=== PATIENT | female | born 1940 | race Caucasian/White ===

== ENCOUNTER → 2019-05-31 10:41 | Outpatient (BNVA) | payer MEDICARE, MEDICAID, SELFPAY | PROVIDERS: Family Provider Family Medicine; PCP Family Medicine; Visit Provider Urology | DX: N35.82 Other urethral stricture, female (principal); N39.9 Disorder of urinary system, unspecified | CPT/HCPCS: 81001 ==

== ENCOUNTER → 2019-12-05 10:45 | Outpatient (BNVA) | payer MEDICARE, MEDICAID, SELFPAY | PROVIDERS: Family Provider Family Medicine; PCP Family Medicine; Visit Provider Urology | DX: Z87.440 Personal history of urinary (tract) infections (principal) | CPT/HCPCS: 81001 ==

== ENCOUNTER 2020-06-07 12:56 | Emergency (ER) | payer MEDICARE, MEDICAID, SELFPAY ==
[2020-06-07 12:58] VITALS: BP 99/54; PULSE 80; RESP 18; TEMP 36.6; O2SAT 98; BMI 28.7
--- NOTE | 2020-06-07 13:27 | XRR_ITS ---
PROCEDURE INFORMATION: Exam: XR Right Tibia and Fibula Exam date and time: 06/07/2020 1:28 PM Age: 79 years old Clinical indication: Injury or trauma; Fall; Blunt trauma; Lower leg; Right; Prior surgery; Surgery type: Knee; Additional info: Fall, swelling, pain TECHNIQUE: Imaging protocol: XR Right tibia and fibula. Views: 2 views. COMPARISON: No relevant prior studies available. FINDINGS: Bones/joints: A total knee prosthesis is present. The tibia and fibula appear intact with no fracture or other significant bony abnormality. Soft tissues: Normal. XR/XR tibia fibula RT 2V [id number] IMPRESSION: No acute abnormality.
--- NOTE | 2020-06-07 13:27 | ED_ITS ---
HPI - Fall General: Chief Complaint: Fall Stated Complaint: FALL, R KNEE INJURY/PAIN Time Seen by Provider: 06/07/20 13:23 History of Present Illness: HPI Narrative: Patient arrived via POV with a complaint of right knee pain related to fall last night. Patient says she tripped on carpet and had resulting pain below her knee. She has history of bilateral knee replacement. Patient has been able to ambulate but said the leg is states well it hurts. Also has a skin tear on her right ankle that has been bandaged. Denies any other injuries. complaint: fall Onset (ago): day(s) Fall from: standing Fall witnessed: yes, by family Place fall occurred: home Loss of consciousness: None Symptoms prior to fall: none Context: tripped/slipped Location of injury - extremities: Right: lower leg and ankle Severity: mild Severity scale (1-10): 2 Quality: aching (Below right knee) Associated symptoms-after fall: Reports no associated symptoms; Denies abdominal pain, chest pain or headache(s) Review of Systems Const: Denies: fever(s), chills or body aches Eyes: Denies: change in vision or blurry vision ENMT: Denies: throat pain or nasal congestion Card: Denies: chest pain or dyspnea on exertion Resp: Denies: dyspnea, productive cough or non-productive cough GI: Denies: abdominal pain, nausea or vomiting Musc: Reports: extremity pain (Right leg proximal aspect lateral says she fell and struck her right leg cooney) and extremity swelling Skin/Breast: Reports: other (Skin tear right ankle); Denies: rash Neuro: Denies: headache(s) Psych: Denies: anxiety or depression Zbigniew/Lymph: Denies: easy bruising [facility] ED PFSH: Medical History (Updated 06/07/20 @ 13:59 by NICK Garcia) History of urethral stricture History of UTI Family History Father Cancer Social History Smoking and tobacco status: current every day smoker Alcohol intake: never Adopted: No Caregiver/support person: No Lives independently: No Household members: spouse Marital status: Current occupational status: retired History of recent travel: No Current gender identity: Female Physical Exam Const: COMMON NORMALS: no acute distress, average body habitus and patient oriented x3 HENMT: COMMON NORMALS: normocephalic HEAD & SCALP: normal to inspection and normocephalic FACE & SINUS: normal facial exam Eye: COMMON NORMALS: conjunctivae normal GENERAL EYE: appearance normal, both eyes and all related structures CONJUNCTIVA: Yes conjunctivae normal Neck/C-Spine: COMMON NORMALS: no JVD Chest: COMMONS NORMALS: normal inspection of the chest Resp: COMMON NORMALS: normal respiratory effort and clear to auscultation bilaterally AUSCULTATION: clear to auscultation bilaterally Cardio: COMMON NORMALS: no JVD, regular rate and regular rhythm RATE: regular rate RHYTHM: regular rhythm GI: COMMON NORMALS: Normal to inspection, nondistended, normoactive bowel sounds present Extremity: COMMON NORMALS: normal to inspection and full ROM RIGHT LOWER EXTREMITY: Yes lower leg (Has swelling to the lateral aspect of the right leg approximately 1 to 2 in) Right lower leg: Yes palpation (Small abrasion noted and mild swelling tender) Neuro: COMMON NORMALS: patient oriented x3 Skin: OTHER: Has small skin tear right lateral ankle approximately 1 cm x 1 cm Course Vital Signs: Vital signs: Vital Signs Temperature 97.8 F 06/07/20 12:58 Pulse Rate 80 06/07/20 12:58 Respiratory Rate 18 06/07/20 13:35 Blood Pressure 99/54 06/07/20 12:58 Pulse Oximetry 98 06/07/20 12:58 MDM - Fall MDM Narrative: Medical decision making narrative: Patient resides in detention. Looks like it caught his big toenail when he is putting his pants on and pulled that nail back he has some redness around the toe does not appear to be paraonchya. Toe has full range of motion does not appear to be broke mild erythema Epson salts will probably help him best along with antibiotic's follow- up primary care provider Discharge Plan Discharge Patient Disposition: Home Clinical Impression: Contusion Qualifiers: Encounter type: initial encounter Contusion area: lower leg Laterality: right Qualified Code(s): S80.11XA - Contusion of right lower leg, initial encounter Condition: Stable Prescriptions: No Action pregabalin [Lyrica] 50 mg capsule 50 mg PO BID RF: 0 Incruse Ellipta 62.5 mcg/actuation blister with device 1 inh INHALATION DAILY RF: 0 polyethylene glycol 3350 [GlycoLax] 17 gram/dose powder 17 gm PO DAILY RF: 0 morphine-naltrexone 30-1.2 mg capsule,extend.release pellets PO DAILY RF: 0 albuterol sulfate 90 mcg/actuation HFA aerosol inhaler 1 inh INHALATION QID RF: 0 omeprazole 20 mg capsule,delayed release(DR/EC) 20 mg PO BID RF: 0 nystatin 100,000 unit/gram cream 1 applic TOPICAL .prn RF: 0 duloxetine 20 mg capsule,delayed release(DR/EC) 20 mg PO DAILY RF: 0 donepezil [Aricept] 10 mg tablet 10 mg PO DAILY RF: 0 docusate sodium [Colace] 100 mg capsule 100 mg PO BID RF: 0 vitamin B complex [B Complex-Vitamin B12] Tablet 1 tab PO DAILY RF: 0 Spiriva with HandiHaler 18 mcg capsule, w/inhalation device 1 cap INHALATION DAILY RF: 0 Calcium 600 with Vitamin D3 600 mg(1,500mg) -400 unit tablet,chewable PO DAILY RF: 0 mirtazapine 15 mg tablet 15 mg PO DAILY RF: 0 morphine 15 mg tablet 15 mg PO Q6H PRNRF: 0 Discharge Orders: Discharge ED (Routine); Ordered 06/07/20 Ordered By: Grover Patel Referrals: Naomi Lyn MD [Primary Care Provider] - Discharge Diet: Usual diet Discharge Activity: Increase activity as tolerated Patient Instructions: Contusion in Adults (ED) Activity Restrictions/Additional Instructions: Can apply ice to area. Wear Moe wrap around area. Family medical provider if no significant improvement. Coding Level of Care Code ED [facility] Programmer for Chg Fwd Exam Comprehensive
[2020-06-07 13:35] VITALS: RESP 18
--- NOTE | 2020-06-07 15:25 | W.ED.FALL ---
HPI - Fall General: Chief Complaint: Fall Stated Complaint: FALL, R KNEE INJURY/PAIN Time Seen by Provider: 06/07/20 13:23 History of Present Illness: Place fall occurred: home Context: tripped/slipped [facility] ED PFSH: Medical History (Updated 06/07/20 @ 13:59 by NICK Garcia) History of urethral stricture History of UTI Family History Father Cancer Social History Smoking and tobacco status: current every day smoker Alcohol intake: never Adopted: No Caregiver/support person: No Lives independently: No Household members: spouse Marital status: Current occupational status: retired History of recent travel: No Current gender identity: Female Course Vital Signs: Vital signs: Vital Signs Temperature 97.8 F 06/07/20 12:58 Pulse Rate 80 06/07/20 12:58 Respiratory Rate 18 06/07/20 13:35 Blood Pressure 99/54 06/07/20 12:58 Pulse Oximetry 98 06/07/20 12:58 Discharge Plan Discharge Patient Disposition: Home Clinical Impression: Contusion Qualifiers: Encounter type: initial encounter Contusion area: lower leg Laterality: right Qualified Code(s): S80.11XA - Contusion of right lower leg, initial encounter Condition: Stable Prescriptions: No Action pregabalin [Lyrica] 50 mg capsule 50 mg PO BID RF: 0 Incruse Ellipta 62.5 mcg/actuation blister with device 1 inh INHALATION DAILY RF: 0 polyethylene glycol 3350 [GlycoLax] 17 gram/dose powder 17 gm PO DAILY RF: 0 morphine-naltrexone 30-1.2 mg capsule,extend.release pellets PO DAILY RF: 0 albuterol sulfate 90 mcg/actuation HFA aerosol inhaler 1 inh INHALATION QID RF: 0 omeprazole 20 mg capsule,delayed release(DR/EC) 20 mg PO BID RF: 0 nystatin 100,000 unit/gram cream 1 applic TOPICAL .prn RF: 0 duloxetine 20 mg capsule,delayed release(DR/EC) 20 mg PO DAILY RF: 0 donepezil [Aricept] 10 mg tablet 10 mg PO DAILY RF: 0 docusate sodium [Colace] 100 mg capsule 100 mg PO BID RF: 0 vitamin B complex [B Complex-Vitamin B12] Tablet 1 tab PO DAILY RF: 0 Spiriva with HandiHaler 18 mcg capsule, w/inhalation device 1 cap INHALATION DAILY RF: 0 Calcium 600 with Vitamin D3 600 mg(1,500mg) -400 unit tablet,chewable PO DAILY RF: 0 mirtazapine 15 mg tablet 15 mg PO DAILY RF: 0 morphine 15 mg tablet 15 mg PO Q6H PRNRF: 0 Discharge Orders: Discharge ED (Routine); Ordered 06/07/20 Ordered By: Grover Patel Referrals: Naomi Lyn MD [Primary Care Provider] - Discharge Diet: Usual diet Discharge Activity: Increase activity as tolerated Patient Instructions: Contusion in Adults (ED) Activity Restrictions/Additional Instructions: Can apply ice to area. Wear Moe wrap around area. Family medical provider if no significant improvement. Coding Level of Care Code ED [employer]er Supervisor for Nelia Diaz
== END 2020-06-07 14:13 | disposition home or self-care (01) ==
PROVIDERS: Emergency Provider Nurse Practitioner Family; PCP Family Medicine
DX: S80.11XA Contusion of right lower leg, initial encounter (principal); F17.210 Nicotine dependence, cigarettes, uncomplicated; W18.09XA Striking against other object with subsequent fall, initial encounter; Z96.653 Presence of artificial knee joint, bilateral
CPT/HCPCS: 73590; 99282

== ENCOUNTER → 2020-06-10 09:58 | Outpatient (BNVA) | payer MEDICARE, MEDICAID, SELFPAY | PROVIDERS: PCP Family Medicine; Visit Provider Urology | DX: N35.92 Unspecified urethral stricture, female (principal); R35.0 Frequency of micturition; N39.46 Mixed incontinence | CPT/HCPCS: 81003 ==

== ENCOUNTER → 2020-09-11 12:20 | Outpatient (BNVA) | payer MEDICARE, MEDICAID, SELFPAY | PROVIDERS: PCP Family Medicine; Visit Provider Urology | DX: R82.90 Unspecified abnormal findings in urine (principal) | CPT/HCPCS: 81003; 87086 ==

== ENCOUNTER 2020-09-23 10:46 | Inpatient (IN) | payer MEDICARE, MEDICAID, SELFPAY ==
[2020-09-23] VITALS (14 sets, daily range): BP systolic 132–153; BP diastolic 69–90; PULSE 69–100; RESP 14–24; TEMP 36.6–37.7; O2SAT 88–99; BMI 30.2
--- NOTE | 2020-09-23 10:53 | XRR_ITS ---
PROCEDURE INFORMATION: Exam: XR Chest Exam date and time: 09/23/2020 10:53 AM Age: 79 years old Clinical indication: Other: AMS TECHNIQUE: Imaging protocol: XR of the chest. Views: 1 view. COMPARISON: 1. CR Chest 2 views* [id number] 01/24/2017 10:[address] abdomen pelvis wo con [id number] 11/07/2017 9:40:12 AM FINDINGS: Lungs: There is mild atelectasis in the right base. Left lung is grossly clear.. Pleural spaces: Unremarkable. No pleural effusion. No pneumothorax. Heart/Mediastinum: The heart is not enlarged. There is tortuosity of the thoracic aorta. Benign calcified lymph nodes are present in the mediastinum. Diaphragm: The right hemidiaphragm is elevated but unchanged since a CT scan from 11/07/2017. Bones/joints: There is thoracolumbar scoliosis. 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 XR/XR chest 1V portable [id number] IMPRESSION: 1. Benign calcified granulomas disease. 2. Subsegmental right basilar atelectasis. 3. Stable chronic right hemidiaphragm elevation.
--- NOTE | 2020-09-23 11:14 | CT_ITS ---
WS: [id number] CT HEAD TECHNIQUE: Noncontrast CT of the head obtained from the skullbase to the vertex. CLINICAL INFORMATION: AMS COMPARISON: CT 2013 DLP: 1832.[address] scans at [facility] use at least one of these dose optimization techniques: automat ed exposure control; mA and/or kV adjustment per patient size (includes targeted exams where dose is matched to clinical indication); or iterative reconstruction. FINDINGS: No evidence of intracranial hemorrhage or mass effect. Ventricular system and basal cisterns are powell nt. Moderate small vessel changes with mild parenchymal volume loss. 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 No extra-axial fluid collections. No evidence of mass or mass effect. Norm al bowen-white differentiation. Paranasal sinuses and mastoid air cells are well aerated. .Normal visualized soft tissues. CT/CT head wo con* [id number] IMPRESSION: 1. No evidence of intracranial hemorrhage or mass effect. 2. Moderate small vessel changes. Mild parenchymal volume loss. 3. No acute intracranial findings.
--- NOTE | 2020-09-23 11:38 | ED_ITS ---
HPI - Female Genitourinary General: Chief complaint: Urogenital-Female Stated complaint: UTI, AMS Time Seen by Provider: 09/23/20 11:00 Source: patient and family (daughter) Mode of arrival: EMS Limitations: altered mental status History of Present Illness: HPI Narrative: Patient is an 79-year-old female with a history of dementia and who is currently on antibiotics, Augmentin for a UTI. Her daughter states that she has had altered mental status from the initial diagnosis of the UTI but it got much worse today. She was started on antibiotics 5 days ago. Today she became combative, not following directions and so her daughter called for an ambulance. In the emergency department she was noted to have a low-grade fever. In the ambulance she pulled out her IV and did not keep her pulse oximeter on throughout the ride. She normally wears 3 L of oxygen via nasal cannula and when ambulating she increases it to 6 L/min. MD elicited complaint: UTI Pertinent past history: recurrent UTIs Onset (ago): day(s) (5) Associated symptoms: Reports abdominal pain and fevers/chills; Deny short of breath, headache(s), nausea, rash, seizures, syncope, vaginal discharge or weakness Review of Systems General: Reports: 10 or more systems reviewed and unremarkable except in HPI and below Card: Denies: syncope GI: Reports: abdominal pain; Denies: nausea : Denies: vaginal discharge Neuro: Denies: headache(s) [facility] ED PFSH: Medical History History of genital organ removal vulvectomy History of urethral stricture History of UTI Mixed stress and urge urinary incontinence Urinary frequency Surgical History History of appendectomy History of back surgery History of cholecystectomy History of fundoplication History of total hip replacement Family History Father Cancer Social History Smoking and tobacco status: current every day smoker Alcohol intake: never Adopted: No Caregiver/support person: No Lives independently: No Household members: spouse Marital status: Current occupational status: retired History of recent travel: No Current gender identity: Female Physical Exam Const: COMMON NORMALS: no acute distress, average body habitus, no hernandez itations, healthy appearing, alert and well nourished HENMT: COMMON NORMALS: normocephalic, atraumatic and moist oral mucous membranes HEAD & SCALP: normocephalic and atraumatic Eye: COMMON NORMALS: Equal, round and reactive pupils present, EOMs intact bilaterally, conjunctivae normal and no scleral icterus CONJUNCTIVA: Yes conjunctivae normal PUPIL: Yes Equal, round and reactive pupils present Neck/C-Spine: COMMON NORMALS: no meningeal signs and no JVD Resp: COMMON NORMALS: normal respiratory effort, No retractions, No use of accessory muscles, clear to auscultation bilaterally and percussion normal AUSCULTATION: clear to auscultation bilaterally PERCUSSION: percussion normal Cardio: COMMON NORMALS: no JVD, regular rate, regular rhythm, S1 normal heart sound present, S2 normal heart sound present, No gallops present (Cardio), No clicks present (Cardio), No murmurs present (Cardio), No rub (Cardio) and Peripheral pulses 2+ throughout RATE: regular rate RHYTHM: regular rhythm HEART SOUNDS: S1 normal heart sound present and S2 normal heart sound present PERIPHERAL PULSES: Peripheral pulses 2+ throughout GI: COMMON NORMALS: Normal to inspection, nondistended, normoactive bowel sounds present, Soft to palpation, No hepatosplenomegaly present, no masses and no bruits PALPATION: Yes Soft to palpation, Yes Tenderness to palpation present (GI) Details: LLQ and Yes No hepatosplenomegaly present : COMMON NORMALS: Yes no CVA tenderness BLADDER/KIDNEY EXAM: Yes no CVA tenderness Back/Pelvis: COMMON NORMALS: no CVA tenderness Extremity: COMMON NORMALS: normal to inspection, full ROM, capillary refill normal, no calf tenderness and no pedal edema Neuro: SENSORIUM/ORIENTATION: Yes alert, Yes Orientation impaired and Yes fluctuating sensorium MENINGEAL SIGNS: Yes no meningeal signs Skin: COMMON NORMALS: no rashes or lesions noted, no wounds, turgor normal, no jaundice, no petechiae and no mottling GENERAL SKIN EXAM: no rashes or lesions noted and turgor normal Course Consultations: Consultation #1: Discussed the patient with Dr. Givens, hospitalist and she kindly accepted the patient to her service. Time: 14:12 Vital Signs: Vital signs: Vital Signs Temperature 99.2 F 09/25/20 17:11 Pulse Rate 103 H 09/25/20 17:11 Respiratory Rate 14 09/25/20 17:11 Blood Pressure 147/79 09/25/20 17:11 Pulse Oximetry 91 09/25/20 17:11 MDM - Female MDM Narrative: Medical decision making narrative: This 79 year old female with dementia, who is currently on antibiotics for a UTI presents to the ED with complaints of AMS by her daughter. She was combative, delirious, and was drowsy. In the ED, she appears to have a UTI, but she was also in hypercapneic respiratory failure which may be responsible for a lot of her symptoms. She was placed on a biPAP and she tolerated it well. She is admitted to the hospital for management. Medical Records: Attestation: I reviewed the patient's medical records. Lab Data: Attestation: I reviewed the patient's lab results. Labs: Lab Results 09/23/20 09/23/20 09/23/20 Range/Units 11:20 11:20 11:20 WBC 5.7 (4.0-10.0) 10^3/ uL RBC 3.96 L (4.1-5.3) 10^6/u L Hgb 11.6 (11.5-15.3) g/dL Hct 41.8 (37.0-47.0) % MCV 105.6 H (81-99) fL MCH 29.3 (28.0-34.0) pg MCHC 27.8 L (30.0-36.0) g/dL RDW 14.6 (12.1-15.1) % Plt Count 191 (130-400) 10^3/c mm MPV 10.8 H (7.4-10.4) fL Neut % (Auto) 78.1 % Lymph % (Auto) 11.2 % [place] % (Auto) 8.8 % Eos % (Auto) 0.5 % Baso % (Auto) 0.9 % Neut # (Auto) 4.44 (1.8-7.7) 10^3/u L Lymph # (Auto) 0.6 L (0.8-4.8) 10^3/u L [place] # (Auto) 0.5 (0.2-0.9) 10^3/u L Eos # (Auto) 0.0 (0.0-0.8) 10^3/u L Baso # (Auto) 0.1 (0.0-0.1) 10^3/u L Nucleated RBC % (a uto) 0 % Nucleated RBCs # 0.0 /100WBC Specimen Type Sample Site ABG pH (7.35-7.45) ABG pCO2 (35-45) mmHg ABG pO2 (80.0-100.0) mmH g ABG HCO3 (22-26) mmol/L ABG Base Excess (-2.0-2.0) mmol/ L Pj Test Hematocrit (37-47) % O2 Delivery Device O2 Liters/Min % Airset Caster ID Sodium Cancelled Potassium Cancelled Chloride Cancelled Carbon Dioxide Cancelled Anion Gap Cancelled BUN Cancelled Creatinine Cancelled GFR Calculation Cancelled Glucose Cancelled Calculated Osmolal ity Cancelled Lactic Acid 0.9 (0.5-2.2) mmol/L Calcium Cancelled Total Bilirubin Cancelled AST Cancelled ALT Cancelled Alkaline Phosphata se Cancelled Total Protein Cancelled Albumin Cancelled Globulin Cancelled Urine Color (Yellow) Urine Appearance (CLEAR) Urine pH (5-7) Ur Specific Gravit y (1.005-1.030) Urine Protein (Negative) Urine Glucose (UA) (Normal) Urine Ketones (Negative) Urine Blood (Negative) Urine Nitrate (Negative) Urine Bilirubin (Negative) Urine Urobilinogen (Negative) mg/dL Ur Leukocyte Manisha ase (Negative) SARS-CoV-2 Ag (Rap id) (Negative) 09/23/20 09/23/20 09/23/20 Range/Units 11:20 11:20 12:27 WBC (4.0-10.0) 10^3/ uL RBC (4.1-5.3) 10^6/u L Hgb (11.5-15.3) g/dL Hct (37.0-47.0) % MCV (81-99) fL MCH (28.0-34.0) pg MCHC (30.0-36.0) g/dL RDW (12.1-15.1) % Plt Count (130-400) 10^3/c mm MPV (7.4-10.4) fL Neut % (Auto) % Lymph % (Auto) % [place] % (Auto) % Eos % (Auto) % Baso % (Auto) % Neut # (Auto) (1.8-7.7) 10^3/u L Lymph # (Auto) (0.8-4.8) 10^3/u L [place] # (Auto) (0.2-0.9) 10^3/u L Eos # (Auto) (0.0-0.8) 10^3/u L Baso # (Auto) (0.0-0.1) 10^3/u L Nucleated RBC % (a uto) % Nucleated RBCs # /100WBC Specimen Type Sample Site ABG pH (7.35-7.45) ABG pCO2 (35-45) mmHg ABG pO2 (80.0-100.0) mmH g ABG HCO3 (22-26) mmol/L ABG Base Excess (-2.0-2.0) mmol/ L Pj Test Hematocrit (37-47) % O2 Delivery Device O2 Liters/Min % Airset Caster ID Sodium 141 Potassium 5.2 H Chloride 97 L Carbon Dioxide 43 H* Anion Gap 6.2 BUN 12 Creatinine 0.6 GFR Calculation Not Reportable Glucose 91 Calculated Osmolal ity 291 Lactic Acid (0.5-2.2) mmol/L Calcium 8.2 L Total Bilirubin 0.3 AST 18 ALT 9 Alkaline Phosphata se 110 H Total Protein 6.4 L Albumin 3.4 L Globulin 3.0 Urine Color Yellow (Yellow) Urine Appearance Clear (CLEAR) Urine pH 6 (5-7) Ur Specific Gravit y 1.015 (1.005-1.030) Urine Protein Neg (Negative) Urine Glucose (UA) Norm (Normal) Urine Ketones 1+ H (Negative) Urine Blood Neg (Negative) Urine Nitrate Negative (Negative) Urine Bilirubin Neg (Negative) Urine Urobilinogen Norm (Negative) mg/dL Ur Leukocyte Manisha ase Negative (Negative) SARS-CoV-2 Ag (Rap id) Negative (Negative) 09/23/20 Range/Units 13:40 WBC (4.0-10.0) 10^3/ uL RBC (4.1-5.3) 10^6/u L Hgb (11.5-15.3) g/dL Hct (37.0-47.0) % MCV (81-99) fL MCH (28.0-34.0) pg MCHC (30.0-36.0) g/dL RDW (12.1-15.1) % Plt Count (130-400) 10^3/c mm MPV (7.4-10.4) fL Neut % (Auto) % Lymph % (Auto) % [place] % (Auto) % Eos % (Auto) % Baso % (Auto) % Neut # (Auto) (1.8-7.7) 10^3/u L Lymph # (Auto) (0.8-4.8) 10^3/u L [place] # (Auto) (0.2-0.9) 10^3/u L Eos # (Auto) (0.0-0.8) 10^3/u L Baso # (Auto) (0.0-0.1) 10^3/u L Nucleated RBC % (a uto) % Nucleated RBCs # /100WBC Specimen Type Arterial Sample Site Radial, left ABG pH 7.27 L (7.35-7.45) ABG pCO2 99.3 H* (35-45) mmHg ABG pO2 141.0 H (80.0-100.0) mmH g ABG HCO3 45.2 H (22-26) mmol/L ABG Base Excess 14.2 H (-2.0-2.0) mmol/ L Pj Test Pos Hematocrit 36.4 L (37-47) % O2 Delivery Device Nc O2 Liters/Min 4.0 % Airset Caster ID jmn Sodium Potassium Chloride Carbon Dioxide Anion Gap BUN Creatinine GFR Calculation Glucose Calculated Osmolal ity Lactic Acid (0.5-2.2) mmol/L Calcium Total Bilirubin AST ALT Alkaline Phosphata se Total Protein Albumin Globulin Urine Color (Yellow) Urine Appearance (CLEAR) Urine pH (5-7) Ur Specific Gravit y (1.005-1.030) Urine Protein (Negative) Urine Glucose (UA) (Normal) Urine Ketones (Negative) Urine Blood (Negative) Urine Nitrate (Negative) Urine Bilirubin (Negative) Urine Urobilinogen (Negative) mg/dL Ur Leukocyte Manisha ase (Negative) SARS-CoV-2 Ag (Rap id) (Negative) ABG Data: ABG Interpretation 1: ABG results: pH 7.27 pCO2 99.3 pO2 141 Attestation: I personally reviewed and interpreted this ABG as follows: Interpretation: hypercapneic respiratory failure with respiratory acidosis Imaging Data: CT Head: Attestation: I personally reviewed and interpreted this imaging study as follows: Radiologist's impression: [address] [address]BS Scan ReportSigned Patient: Jaye Jarquin #: [id number]: 1940cct#:[id number]/Sex: 79 / FADM Date: 09/23/20Loc: ERRoom/Bed:Attending Dr: Ordering Provider/Ordering MD: Raz Clemente MD, [facility] [place] Date of Service: 09/23/20 Procedure(s): CT head wo con* [id number] Accession Number(s): [id number] Report Number: [id number] WS: [id number] CT HEAD TECHNIQUE: Noncontrast CT of the head obtained from the skullbase to the vertex. CLINICAL INFORMATION: AMS COMPARISON: CT 2012 DLP: 1832.[address] scans at [facility] use at least one of these dose optimization techniques: automated exposure control; mA and/or kV adjustment per patient size (includes targeted exams where dose is matched to clinical indication); or iterative reconstruction. FINDINGS: No evidence of intracranial hemorrhage or mass effect. Ventricular system and basal cisterns are patent. Moderate small vessel changes with mild parenchymal volume loss. 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 No ex tra-axial fluid collections. No evidence of mass or mass effect. Normal bowen- white differentiation. Paranasal sinuses and mastoid air cells are well aerated. .Normal visualized soft tissues. CT/CT head wo con* [id number] IMPRESSION: 1. No evidence of intracranial hemorrhage or mass effect. 2. Moderate small vessel changes. Mild parenchymal volume loss. 3. No acute intracranial findings. Dictated By:Jesus Ibarra MDSigned By:Jesus Ibarra MDSigned Date/Time:09/23/20 1337DD/ 1332 CXR: Attestation: I personally reviewed and interpreted this imaging study as follows: Radiologist's impression: [facility] CenterOulaxcmwom[address] [facility], [place] [address]LGlf ReportSigned Patient: Jaye Jarquin #: [id number]: 9Acct#:[id number]/Sex: 79 / FADM Date: 09/23/20Loc: ERRoom/Bed:Attending Dr: Ordering Provider/Ordering MD: Viridiana Tee Date of Service: 09/23/20 Procedure(s): XR chest 1V portable [id number] Accession Number(s): [id number] Report Number: [id number] PROCEDURE INFORMATION: Exam: XR Chest Exam date and time: 09/23/2020 10:53 AM Age: 79 years old Clinical indication: Other: AMS TECHNIQUE: Imaging protocol: XR of the chest. Views: 1 view. COMPARISON: 1. CR Chest 2 views* [id number] 01/24/2017 10:[address] abdomen pelvis wo con [id number] 11/07/2017 9:40:12 AM FINDINGS: Lungs: There is mild atelectasis in the right base. Left lung is grossly clear.. Pleural spaces: Unremarkable. No pleural effusion. No pneumothorax. Heart/Mediastinum: The heart is not enlarged. There is tortuosity of the thoracic aorta. Benign calcified lymph nodes are present in the mediastinum. Diaphragm: The right hemidiaphragm is elevated but unchanged since a CT scan from 11/07/2017. Bones/joints: There is thoracolumbar scoliosis. 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 XR/XR chest 1V portable [id number] IMPRESSION: 1. Benign calcified granulomas disease. 2. Subsegmental right basilar atelectasis. 3. Stable chronic right hemidiaphragm elevation. Dictated By:Devon Mackenzie By:Devon Mackenzie Date/Time:09/23/20 1151DD/ 1149 EKG Data: EKG 1: Attestation: I personally reviewed and interpreted this EKG as follows: EKG Data: 09/23/20 EKG interpretation time: 11:03 Prior EKG tracings: not available for review Interpretation: sinus rhythm HR [address] changes. EKG 2: Attestation: I personally reviewed and interpreted this EKG as follows: EKG Data: 09/23/20 EKG interpretation time: 14:24 Prior EKG tracings: available for review Interpretation: sinus rhythm HR [address] changes. No signficant changes compared to earlier today Critical Care Time Critical Care Time: Critical Care Time: Yes Total Critical Care Time: 50 Attestation: This case had a high probability of a clinically significant, sudden, or life threatening deterioration of this patient's condition which required my full and direct attention, intervention and personal management. 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
[2020-09-23 12:07] LABS: Add Urine Microscopic? NO; Charge for UA Resulting for Rev
[2020-09-23 12:10] LABS: Basophils # 0.1 10^3/uL (0.0-0.1); Basophils % 0.9 %; Eosinophils % 0.5 %; Hematocrit 41.8 % (37.0-47.0); Hemoglobin 11.6 g/dL (11.5-15.3); Lymphocytes # 0.6 10^3/uL (0.8-4.8); Lymphocytes % 11.2 %; Mean Corpuscular HGB Conc 27.8 g/dL (30.0-36.0); Mean Corpuscular Hemoglobin 29.3 pg (28.0-34.0); Mean Corpuscular Volume 105.6 fL (81-99); Mean Platelet Volume 10.8 fL (7.4-10.4); Monocytes # 0.5 10^3/uL (0.2-0.9); Monocytes % 8.8 %; Neutrophils # 4.44 10^3/uL (1.8-7.7); Neutrophils % 78.1 %; Nucleated Red Blood Cells % 0 %; Platelet Count 191 10^3/cmm (130-400); Red Blood Count 3.96 10^6/uL (4.1-5.3); Red Cell Distribution Width 14.6 % (12.1-15.1); White Blood Count 5.7 10^3/uL (4.0-10.0)
[2020-09-23 12:22] LABS: Bilirubin Urine Neg (Negative); Blood Urine Neg (Negative); Glucose Urine UA Norm (Normal); Ketones Urine 1+ (Negative); Leukocyte Esterase Urine Negative (Negative); Nitrate Urine Negative (Negative); Protein Urine Neg (Negative); Specific Gravity, Urine 1.015 (1.005-1.030); Urine Appearance Clear (CLEAR); Urine Color Yellow (Yellow); Urobilinogen Urine Norm (Negative); pH Urine 6 (5-7)
[2020-09-23 12:32] LABS: Lactic Sepsis W/Reflex 0.9 mmol/L (0.5-2.2)
[2020-09-23 12:35] LABS: SARS Covid-2 Antigen Negative (Negative)
[2020-09-23 13:06] LABS: Alanine Aminotransferase 9 U/L (0-33); Albumin Level 3.4 g/dL (3.5-5.2); Alkaline Phosphatase 110 IU/L (35-105); Anion Gap 6.2 (5-19); Aspartate Amino Transferase 18 U/L (0-32); Blood Urea Nitrogen 12 mg/dL (8-23); Calcium 8.2 mg/dL (8.5-10.5); Chloride 97 mmol/L (98-107); Creatinine Clr Calc Pharmacy 52.2371; Glucose 91 mg/dL (65-115); Osmolality Calculated 291 mOsm/kg (285-295); Potassium 5.2 mmol/L (3.5-5.1); Sodium 141 mmol/L (136-145); Total Bilirubin 0.3 mg/dL (0.15-1.2); Total Protein 6.4 g/dL (6.6-8.7)
[2020-09-23 13:11] LABS: Carbon Dioxide 43 mmol/L (22-29)
[2020-09-23 13:53] LABS: ABG PCO2 99.3 mmHg (35-45); ABG PH Result 7.27 (7.35-7.45); Arterial Blood Gas Hematocrit 36.4 % (37-47); Base Excess ABG 14.2 mmol/L (-2.0-2.0); Blood Gas Allen Test Pos; Blood Gas Sample Site Radial, left; Blood Gas Sample Type Arterial; HCO3 ABG 45.2 mmol/L (22-26); Oxygen Device NC
--- NOTE | 2020-09-23 14:14 | ECG_ITS ---
[facility] Test Date: 2020-09-23 Pat Name: Jaye Jarquin Department: Room: Gender: Female Registered Nurse Ambulatory: : 1940 Requested By: Raz Clemente I Order Number: [id number] Mago MD: Terri Adan M.D. Measurements Intervals [place] Rate: 80 P: 60 HI: 192 QRS: -62 QRSD: 85 T: 3 QT: 345 QTc: 399 Interpretive Statements SINUS RHYTHM LEFT ANTERIOR FASCICULAR BLOCK [QRS AXIS <= -45, QR IN I, RS IN II] MODERATE T-WAVE ABNORMALITY, CONSIDER ANTERIOR ISCHEMIA [-0.1+ mV T WAVE IN V3/V4] Compared to ECG 02/13/2016 11:00:16 Left anterior fascicular block now present T-wave abnormality now present Possible ischemia now present Left-axis deviation no longer present Electronically Signed On 09-24-2020 0:51:08 CDT by Terri Adan M.D. [id number]
[2020-09-23] MEDS: LORazepam 2 mg/mL INJ 1 mL 0.5 MG IVP (14:58)
--- NOTE | 2020-09-23 15:26 | PC.NURSE ---
a reported family member called for an update. Caller was notified that pt was in the ER and currently had a reported family member with her. Caller was offered to speak with pt or family member. Caller reports that she does not wish to speak to anyone in the room. Caller received this RNs name and credentials at her request. Repeated apologizes and education on HIPPA regulations were given to caller.
--- NOTE | 2020-09-23 17:00 | P.HP_ITS ---
Providers/Chief Complaint Admitting Physician: Paty Givens MD Primary Care Provider: Naomi Lyn MD Chief Complaint: UTI, AMS History of Present Illness Jaye Jarquin is a 79 year old female who is presenting from home with PMH as below, choelfly COPD with 3.5lpm supplemental 02 at home. She comes with c/o AMS as noted by family as being confused conversation, hallucinations and disorientation. She is being treated as outpatiet with augmentin for presumed UTI. Today she deneis any dysuria. Afebrile at home. Tmax here noted to be 99.8F. Covid rapid Ag negative. CXR without discrete consolidation. Review of Systems General: Reports: ROS unobtainable due to mental status Medications/Allergies Home Medications Medication Instructions Recorded Confirmed Last Taken Type albuterol sulfate 90 mcg/actuation 1 inh INHALATION QID 05/31/19 09/23/20 Unknown History aerosol inhaler calcium carbonate-vitamin D3 600 1 tab PO DAILY tab 05/31/19 09/23/20 09/22/20 History mg(1,500 mg)-400 unit chewable tablet docusate sodium 100 mg capsule 100 mg PO BID 05/31/19 09/23/20 09/22/20 History donepezil 10 mg tablet 10 mg PO DAILY 05/31/19 09/23/20 09/22/20 History duloxetine 20 mg capsule,delayed 20 mg PO DAILY cap 05/31/19 09/23/20 09/22/20 History release mirtazapine 15 mg tablet 15 mg PO BEDTIME 05/31/19 09/23/20 09/22/20 History morphine 15 mg immediate release 15 mg PO Q6H PRN 05/31/19 09/23/20 Unknown History tablet nystatin 100,000 unit/gram topical 1 applic TOPICAL .prn gm 05/31/19 09/23/20 Unknown History cream omeprazole 20 mg capsule,delayed 20 mg PO DAILY 05/31/19 09/23/20 09/23/20 History release polyethylene glycol 3350 17 17 gm PO DAILY PRN 05/31/19 09/23/20 Unknown History gram/dose oral powder pregabalin 50 mg capsule 50 mg PO BID 05/31/19 09/23/20 09/23/20 History tiotropium bromide 18 mcg capsule 1 cap INHALATION DAILY 05/31/19 09/23/20 09/23/20 History with inhalation device umeclidinium 62.5 mcg/actuation 1 inh INHALATION DAILY 05/31/19 09/23/20 09/22/20 History blister powder for inhalation vitamin B complex 1 tab PO DAILY 05/31/19 09/23/20 09/22/20 History amoxicillin 875 mg-potassium 1 tab PO BID #20 tab 09/15/20 09/23/20 09/22/20 Rx clavulanate 125 mg tablet morphine 30 mg PO Q12H 09/23/20 09/23/20 09/23/20 History Allergies Allergy/AdvReac Type Severity Reaction Status Date / Time adhesive tape Allergy PULLS SKIN Verified 09/23/20 10:54 OFF codeine Allergy ADR-Itching Verified 09/23/20 10:54 fentanyl Allergy ALGY-Difficulty Verified 09/23/20 10:54 Breathing hydrochlorothiazide Allergy ALGY-Difficulty Verified 09/23/20 10:54 Swallowing,THROAT SWELLING hydrocodone Allergy ADR-Nausea Verified 09/23/20 10:54 hydrogen peroxide Allergy ALGY-Rash Verified 09/23/20 10:54 Iodinated Contrast Media Allergy INDUCED Verified 09/23/20 10:54 CARDIAC ARREST latex Allergy ALGY-Rash Verified 09/23/20 10:54 aspirin AdvReac ADR-Nausea Verified 09/23/20 10:54 oxycodone [From OxyContin] AdvReac ADR-Halluci Verified 09/23/20 10:54 nating triazolam [From Halcion] AdvReac ADR-Insomni Verified 09/17/20 10:37 a PFSH Acute PFSH: Medical History History of genital organ removal vulvectomy History of urethral stricture History of UTI Mixed stress and urge urinary incontinence Urinary frequency Surgical History History of appendectomy History of back surgery History of cholecystectomy History of fundoplication History of total hip replacement Family History Father Cancer Social History Smoking and tobacco status: current every day smoker Alcohol intake: never Adopted: No Caregiver/support person: No Lives independently: No Household members: spouse Marital status: Current occupational status: retired History of recent travel: No Current gender identity: Female Vitals/I&O/Wt Last Vital Signs Temp 98.2 F 09/23/20 16:10 Pulse 79 09/23/20 16:10 Resp 14 09/23/20 16:10 BP 148/80 09/23/20 16:10 Pulse Ox 88 L 09/23/20 16:10 Weight last 48 hrs Weight 74.843 kg Physical Exam Narrative: EXAM NARRATIVE: GEN: Awake, alert , disoriented, no acute distress CVS: S1S2 N RS: CTA B/L all areas Abd: Soft, nt/nd , bs+ HIDE MILL MAN: no focal neuro deficits Data : 09/23/20 11:20 09/23/20 12:27 Micro: Microbiology 09/23/20 11:26 Blood Culture - Preliminary Blood SPECIMEN COLLECTED 09/23/20 11:26 Blood Culture - Preliminary Blood SPECIMEN COLLECTED A&P Assessment and plan (1) COPD exacerbation: admit to med surg acute on chronic hypercapneic respiratory failure secondary to copd exacerbation methylprednisone 30mg iv q8h duonebs every 4 hrs scheduled budesonide inh q12h Status: Acute (2) UTI (urinary tract infection): ceftriaxone empirically Status: Acute (3) Hypercapnic respiratory failure: secondary to copd ex Status: Acute (4) Altered mental status: secondary to hypercapnea Status: Acute Attestations Medical Necessity Statement*: >2midnight admission anticipated for COPD ex acerbation, iv abx for UTI, AMS Coding Level of Care Code Acute 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
[2020-09-23] MEDS: haloperidol inj 5 mg/mL INJ 1 mL IVP (17:09)
[2020-09-23] MEDS: haloperidol inj 5 mg/mL INJ 1 mL 2 MG IVP (18:34)
[2020-09-23] MEDS: cefTRIAXone 1,000 MG in sodium chloride 0.9% (plus) 50 ML 100 MG IV (18:59)
[2020-09-23] MEDS: ipratropium-albuterol 3 mL Neb INHALATION (20:36)
[2020-09-23] MEDS: budesonide 0.5 mg/2 mL Neb 0.25 MG INHALATION (20:36)
[2020-09-24] VITALS (20 sets, daily range): BP systolic 124–156; BP diastolic 68–84; PULSE 70–94; RESP 14–26; TEMP 36.8–37.4; O2SAT 90–98
[2020-09-24] MEDS: ipratropium-albuterol 3 mL Neb INHALATION ×4 (03:19→20:47)
[2020-09-24 06:30] LABS: Basophils % 0.4 %; Hematocrit 39.7 % (37.0-47.0); Hemoglobin 11.3 g/dL (11.5-15.3); Lymphocytes # 0.4 10^3/uL (0.8-4.8); Lymphocytes % 8.9 %; Mean Corpuscular HGB Conc 28.5 g/dL (30.0-36.0); Mean Corpuscular Hemoglobin 29.1 pg (28.0-34.0); Mean Corpuscular Volume 102.3 fL (81-99); Mean Platelet Volume 10.7 fL (7.4-10.4); Monocytes # 0.1 10^3/uL (0.2-0.9); Monocytes % 1.1 %; Neutrophils # 4.12 10^3/uL (1.8-7.7); Neutrophils % 89.2 %; Nucleated Red Blood Cells % 0 %; Platelet Count 188 10^3/cmm (130-400); Red Blood Count 3.88 10^6/uL (4.1-5.3); Red Cell Distribution Width 14.5 % (12.1-15.1); White Blood Count 4.6 10^3/uL (4.0-10.0)
[2020-09-24 06:57] LABS: Anion Gap 10.8 (5-19); Blood Urea Nitrogen 11 mg/dL (8-23); Calcium 8.2 mg/dL (8.5-10.5); Carbon Dioxide 40 mmol/L (22-29); Chloride 94 mmol/L (98-107); Creatinine Clr Calc Pharmacy 52.2371; Glucose 114 mg/dL (65-115); Osmolality Calculated 290 mOsm/kg (285-295); Potassium 4.8 mmol/L (3.5-5.1); Sodium 140 mmol/L (136-145); Thyroid Stimulating Hormone 1.31 uIU/mL (0.27-4.20)
[2020-09-24] MEDS: budesonide 0.5 mg/2 mL Neb 0.25 MG INHALATION ×2 (08:49→20:46)
--- NOTE | 2020-09-24 09:58 | PC.CHAP ---
Pastoral Care Encounter/Spiritual Assessment Type of Contact [] Declined desizing machine operator visit [] Patient/Family/Request visit [] Outpatient visit [] Follow-up visit [] Physician referral [] Code/Alert [x] Routine visit [] Staff referral [] Actively dying [] Patient sleeping [] Family support [] [] Out of room [] Palliative care [] [] Receiving care in room [] Pre-surgical visit [] Trauma [] Long length of stay [] ICU visit [] Other: Relational/Emotional Strength [] Patient feels connected with others/family/visitors/staff [] Distress [] Loneliness/isolation [] Abandonment Spirituality of Patient [] Person of Alysia [] Attends Faith of their Alysia [] Believes in Prayer [] Reads Bible or Islam materials [] There are Spiritual issues to be addressed Food And Nutrition Services Assistant Interventions [x] Prayer [] Active listening [] Non-anxious presence [] Spiritual/emotional support [] Crisis/trauma care [] Spiritual counseling [] Bereavement support [] Provided bereavement packet [] Provided Bible/devotional materials [] Provided toy/stuffed animal, coloring book to patient or family member [] Provided Communion [] Anointing/[place] [] Salvation [x] Completed spiritual assessment [] Other: Impact on Illness or Injury [] Angry [] Fearful [] Anxious [] Often cries [] Exhaustion [] Unable to work [] Unable to attend holiness [] Unable to walk/stand [] Unable to read [] Unable to drive [] Unable to eat/drink [] Unable to sleep [] Unable to be with family [] Patient intubated [] Other: Summary Time spent with patient
[2020-09-24] MEDS: pantoprazole DR 40 mg Tablet PO (10:31)
--- NOTE | 2020-09-24 14:00 | PM.PN ---
Subjective Subjective: Interval history: continued to be confused, no gross change in mentation, zyprexa added , 2-3 episodes of diarrhea Vitals/I&O/Wt Last Vital Signs Temp 99.3 F 09/24/20 23:15 Pulse 81 09/24/20 23:30 Resp 20 H 09/24/20 23:15 BP 124/74 09/24/20 23:15 Pulse Ox 91 09/24/20 23:30 09/24/20 09/24/20 09/25/20 14:59 22:59 06:59 Intake Total 500 / 500 250 / 750 Balance 500 / 500 250 / 750 Weight last 48 hrs Weight 74.843 kg Physical Exam Narrative: EXAM NARRATIVE: GEN: Awake, alert , disoriented, no acute distress CVS: S1S2 N RS: CTA B/L all areas Abd: Soft, nt/nd , bs+ DIRECTOR OF STRATEGIC MARKETING: no focal neuro deficits Data : 09/24/20 05:40 09/24/20 05:40 Micro: Microbiology 09/24/20 07:40 C.difficile Toxin B Gene (PCR) - Final Stool 09/23/20 11:26 Blood Culture - Preliminary Blood NEGATIVE TO DATE 09/23/20 11:26 Blood Culture - Preliminary Blood NEGATIVE TO DATE A&P Assessment and plan (1) COPD exacerbation: acute on chronic hypercapneic respiratory failure secondary to copd exacerbation methylprednisone 30mg iv q8h duonebs every 4 hrs scheduled budesonide inh q12h Status: Acute (2) UTI (urinary tract infection): ceftriaxone empirically last urine cx with strep spp. Status: Acute (3) Hypercapnic respiratory failure: secondary to copd ex Status: Acute (4) Altered mental status: secondary to hypercapnea Status: Acute Attestations Medical Necessity Statement*: continues to have confusion, no significant change, resume home medications Coding Level of Care Code Acute Search Engine Optimization Manager for [facility] Fwd Diagnoses COPD exacerbation J44.1 UTI (urinary tract infection) N39.0 Hypercapnic respiratory failure J96.92 Altered mental status R41.82
[2020-09-24] MEDS: enoxaparin 40 mg/0.4 mL Syringe SUBCUT (18:44)
[2020-09-24] MEDS: morphine ER (12 HR) 30 mg tablet PO (18:44)
[2020-09-24] MEDS: cefTRIAXone 1,000 MG in sodium chloride 0.9% (plus) 50 ML 50 MG IV (18:44)
[2020-09-24] MEDS: mirtazapine 15 mg Tablet PO (22:22)
[2020-09-24] MEDS: OLANZapine 5 mg ODT 2.5 MG PO (22:22)
[2020-09-25] VITALS (14 sets, daily range): BP systolic 134–183; BP diastolic 56–83; PULSE 66–103; RESP 14–24; TEMP 36.8–37.3; O2SAT 88–96
--- NOTE | 2020-09-25 04:13 | PC.NURSE ---
this nurse was asked by the SWEATBAND CUTTING MACHINE OPERATOR to come to the room. SWEATBAND CUTTING MACHINE OPERATOR stated pt had got up to the bedside commode and was very confused. upon entering the room, the pt had pulled off bipap mask and refused to put it back on. pt's daughter present in room. this nurse tried to assist pt with placing an oxymask on. pt refused. pt stated, I'm not going to put that thing back on, I'm going home. Nuvia take me home. RT Krupa present at bedside to obtain ABG. pt refused. Pt educated that with her CO2 level being high it was unsafe to go home because she could fall asleep and not wake up. pt stated, well if that's the way then so be it, I'd rather go in my sleep. pt was asked if she could tell this nurse what year it was, pt stated, I don't know but I know it's not Trump. pt was able to tell Josefa pigment making supervisor name, , and that she was going to be turning 80 in September. pt refusing all medicines, breathing treatments, ABG, and vital signs. pt continues repeating that she is not taking anything until she gets to leave. this nurse educated pt that it was 4AM and requested pt to stay the night until the doctor can see her in the morning. pt stated, I'm going home, there's nothing you can do as soon as I have a ride. pt again educated about the unsafe condition and asked if we could check her ABG levels and vital signs to inform nursing staff and physician if she was any closer to being discharged.
--- NOTE | 2020-09-25 04:30 | PC.RESP ---
RT in room to perform ABG that is ordered for 0400. patient is awake but refusing all treatments and medications. Patient states that she is wanting to leave at this time. Patient tolerated the bipap well and wore the bipap all night with no complications. Nurse and charge nurse at bedside trying to encourage patient to let us help her but patient is adamant that she does not want any help or treatment at this time. patient's daughter Luana states that this is not the patient's baseline and that she is confused. This RT called and spoke with Dr. Weinstein reguarding this patient and her mental status, Dr. Weinstein agrees to come see the patient for further evaluation.
[2020-09-25] MEDS: morphine ER (12 HR) 30 mg tablet PO (05:35)
[2020-09-25 06:55] LABS: ABG PCO2 65.4 mmHg (35-45); ABG PH Result 7.42 (7.35-7.45); Arterial Blood Gas Hematocrit 37.7 % (37-47); Base Excess ABG 14.6 mmol/L (-2.0-2.0); Blood Gas Operator Identificat HARKR; Blood Gas Sample Site Brachial, left; Blood Gas Sample Type Arterial; Oxygen Device OXY MASK
[2020-09-25] MEDS: pantoprazole DR 40 mg Tablet PO (08:22)
[2020-09-25] MEDS: donepezil 5 MG Tablet 10 MG PO (08:22)
[2020-09-25] MEDS: docusate sodium 100 mg Capsule PO (08:22)
[2020-09-25] MEDS: duloxetine 20 mg Capsule PO (08:22)
[2020-09-25 08:50] LABS: Anion Gap 8.9 (5-19); Blood Urea Nitrogen 10 mg/dL (8-23); Calcium 8.9 mg/dL (8.5-10.5); Carbon Dioxide 40 mmol/L (22-29); Chloride 94 mmol/L (98-107); Creatinine Clr Calc Pharmacy 52.2371; Glucose 153 mg/dL (65-115); Osmolality Calculated 290 mOsm/kg (285-295); Potassium 3.9 mmol/L (3.5-5.1); Sodium 139 mmol/L (136-145)
[2020-09-25] MEDS: ipratropium-albuterol 3 mL Neb INHALATION ×2 (09:43→14:27)
[2020-09-25] MEDS: budesonide 0.5 mg/2 mL Neb 0.25 MG INHALATION (09:43)
[2020-09-25] MEDS: cefTRIAXone 1,000 MG in sodium chloride 0.9% (plus) 50 ML 50 MG IV (16:23)
[2020-09-25] MEDS: morphine IR 15 mg Tablet PO (16:31)
--- NOTE | 2020-09-25 18:43 | P.DS_ITS ---
Discharge Providers Date of Admission: 09/23/20 14:20 Date of Discharge: September 25, 2020 Attending Provider at Admission: Paty Givens MD Attending Provider at Discharge: Paty Givens MD Primary Care Provider: Naomi Lyn MD Diagnoses at Discharge Discharge Diagnosis (1) COPD exacerbation: Status: Acute (2) UTI (urinary tract infection): Status: Acute (3) Hypercapnic respiratory failure: Status: Acute (4) Altered mental status: Status: Acute Reason for Visit Reason for Visit: UTI, AMS Hospital Course Hospital Course Jaye Jarquin is a 79 year old female with h/o oxygen dependent COPD who presented from home c/o AMS as noted by family as being confused conversation, hallucinations and disorientation. She is being treated as outpatient with augmentin for presumed UTI. urine cx from 09/11 with strep spp. Covid rapid Ag negative. Patient is vaccinated for COVID 19. CXR without discrete consolidation. work up notable for acute on chronic hypercapneic respiratory failure managed with methylprednisone 30mg iv q8h, duonebs every 4 hrs scheduled, budesonide inh q12h, patient improved with above measures. She needed Bipap ventilation. AMS resolved at discharge. Mentation back at baseline. Will likely benefit from Bipap at home. Sleep study with patient was ordered as an outpatient, to be followed up with primary care provider to see if patient may qualify for BiPAP. Additionally her daughter had reported that patient was increasingly somnolent at home. Lyrica was discontinued during hospital admission. Physical Exam Narrative: EXAM NARRATIVE: GEN: Awake, alert and oriented, no acute distress CVS: S1S2 N RS: CTA B/L Abd: Soft, nt/nd , bs+ DOSIER OPERATOR: no focal neuro deficits Discharge Data Data Completed and Pending: Completed Studies During Hospitalization Category Date Time Status CT head wo con* 7 0450 Urgent Cat Scan 09/23/20 11:14 Completed XR chest 1V julio césar ble [id number] Urgent Exams 09/23/20 10:53 Completed Pending at discharge Category Date Time Status Blood Culture Sta t Lab 09/23/20 11:26 Results Labs from last 24 hours 09/25/20 09/25/20 08:25 06:44 Specimen Type Arterial Sample Site Brachial, left ABG pH 7.42 ABG pCO2 65.4 H* ABG pO2 74.0 L ABG HCO3 42.0 H ABG Base Excess 14.6 H Pj Test N/a Hematocrit 37.7 O2 Delivery Device Oxy mask O2 Liters/Min 6.0 Sales Appointment Coordinator ID Harkr Sodium 139 Potassium 3.9 Chloride 94 L Carbon Dioxide 40 H Anion Gap 8.9 BUN 10 Creatinine 0.7 GFR Calculation Not Reportable Glucose 153 H Calculated Osmolal ity 290 Calcium 8.9 Vitals: Last Vital Signs Temp 99.2 F 09/25/20 17:11 Pulse 103 H 09/25/20 17:11 Resp 14 09/25/20 17:11 BP 147/79 09/25/20 17:11 Pulse Ox 91 09/25/20 17:11 Discharge Plan Discharge Patient Disposition: Home Health Service Condition: Stable Prescriptions: New olanzapine 5 mg Tablet,Disintegrating 2.5 mg PO BEDTIME 10 Days Qty: 10 RF: 0 methylprednisolone [Medrol (Philippe)] 4 mg tablets,dose pack See Rx Instructions .ROUTE .COMPLEX Qty: 21 RF: 0 Continued Incruse Ellipta 62.5 mcg/actuation blister with device 1 inh INHALATION DAILY RF: 0 polyethylene glycol 3350 [GlycoLax] 17 gram/dose powder 17 gm PO DAILY PRN (Reason: Constipation) RF: 0 albuterol sulfate 90 mcg/actuation HFA aerosol inhaler 1 inh INHALATION QID RF: 0 omeprazole 20 mg capsule,delayed release(DR/EC) 20 mg PO DAILY RF: 0 nystatin 100,000 unit/gram cream 1 applic TOPICAL .prn RF: 0 duloxetine 20 mg capsule,delayed release(DR/EC) 20 mg PO DAILY RF: 0 donepezil [Aricept] 10 mg tablet 10 mg PO DAILY RF: 0 docusate sodium [Colace] 100 mg capsule 100 mg PO BID RF: 0 vitamin B complex [B Complex-Vitamin B12] Tablet 1 tab PO DAILY RF: 0 Spiriva with HandiHaler 18 mcg capsule, w/inhalation device 1 cap INHALATION DAILY RF: 0 Calcium 600 with Vitamin D3 600 mg(1,500mg) -400 unit tablet,chewable 1 tab PO DAILY RF: 0 mirtazapine 15 mg tablet 15 mg PO BEDTIME RF: 0 morphine 15 mg tablet 15 mg PO Q6H PRN (Reason: Pain) RF: 0 amoxicillin-pot clavulanate 875-125 mg tablet 1 tab PO BID Qty: 20 RF: 0 morphine 30 mg tablet extended release 30 mg PO Q12H RF: 0 Discontinued pregabalin [Lyrica] 50 mg capsule 50 mg PO BID RF: 0 Discharge Orders: Discharge Order (Routine); Ordered 09/25/20 Ordered By: Paty Givens Other Ambulatory Orders: Sleep Study/Titration (Routine) Timeframe: 2 Weeks Location: None Selected Ordered By: Paty Givens Referrals: Naomi Lyn MD [Primary Care Provider] - 10/03/20 11:15 am Discharge Diet: Usual diet Discharge Activity: Resume usual activity Patient Instructions: Olanzapine (By mouth), Opioid Safety Discharge Attestations Time Spent in Discharge Care*: other Quality Metrics Clinical Quality Measures During this hospital stay, did patient experience: None Coding Level of Care Code Acute [facility] note Diagnoses COPD exacerbation J44.1 UTI (urinary tract infection) N39.0 Hypercapnic respiratory failure J96.92 Altered mental status R41.82
--- NOTE | 2020-09-26 07:39 | PC.RESP ---
SMOKING CESSATION AND PULMONARY REHAB INFORMATION SENT TO PATIENT.
== END 2020-09-25 17:12 | disposition home health service (06) | DRG 190 ==
LOC: ER 11:02 → MEDSURG 14:57
PROVIDERS: Physician Assistant; Admitting Provider Student in an Organized Health Care Education/Training Program; Emergency Provider Family Medicine; PCP Family Medicine; Visit Provider Student in an Organized Health Care Education/Training Program
DX: J44.1 Chronic obstructive pulmonary disease with (acute) exacerbation (principal); J96.22 Acute and chronic respiratory failure with hypercapnia; N39.0 Urinary tract infection, site not specified; Z99.81 Dependence on supplemental oxygen; Z87.440 Personal history of urinary (tract) infections; N39.46 Mixed incontinence; Z96.649 Presence of unspecified artificial hip joint; F17.210 Nicotine dependence, cigarettes, uncomplicated; R41.82 Altered mental status, unspecified; Z79.891 Long term (current) use of opiate analgesic; Z79.51 Long term (current) use of inhaled steroids
CPT/HCPCS: 36415; 36600; 70450; 71045; 80048; 80053; 81003; 82803; 83605; 84443; 85025; 87040; 87426; 87493; 93005; 94640; 94660; 94664; 96374; 97161; 97530; 99285; J0696; J1630; J1650; J2060; J2920; J7626

== ENCOUNTER 2021-09-25 12:04 | Outpatient (CLI) | payer MEDICARE, MEDICAID, SELFPAY ==
--- NOTE | 2021-09-25 12:21 | CT_ITS ---
WS: [id number] CT ABDOMEN AND PELVIS NONCONTRAST HISTORY: Abdominal pain, bloating and soreness. Nausea and constipation. TECHNIQUE: Imaging performed through the abdomen and pelvis. Coronal and sagittal reformats are submi tted. All CT scans at [facility] use at least one of these dose optimization techniques: auto mated exposure control; mA and/or kV adjustment per patient size (includes targeted exams where dose is matched to clinical indication); or iterative reconstruction. DLP: 1273.87 mGy.cm COMPARISON: 11/07/2017 Lower thorax: Moderate elevation of the RIGHT hemidiaphragm with compressive atelectasis at the RIGHT lung base. Mild cardiomegaly. Moderate size hiatal hernia. Liver: Elevation of the liver into the lower thorax. Scattered granulomata. No mass or bile duct dila tation. Gallbladder: Prior cholecystectomy. Pancreas: Normal size and attenuation. Normal pancreatic duct. No pancreatitis or mass. Spleen: Normal size spleen with granulomata. Adrenal glands: Normal. No mass. Right kidney: Normal size kidney with no mass or hydronephrosis. Left kidney: Normal size kidney with no mass or hydronephrosis. Aorta: Mild atherosclerosis abdominal aorta with no aneurysm. No free fluid, intraperitoneal air or significant lymphadenopathy. GI tract: Stomach is moderately well distended with fluid. There is mild wall thickening of the stoma ch which actually appears very similar to the prior study. Increased air within the stomach. No small bowel obstruction. Normal appendix. The appendix does contain increased density which is likely in a ppendicolith or oral contrast. No appendicitis. No colon obstruction. Abdominal wall: Negative. No hernia. Pelvis: Well-distended urinary bladder. No free fluid or adenopathy. Prior hysterectomy. Osseous structures: Thoracolumbar scoliosis. Advanced spondylitic changes throughout the spine. L4 an terolisthesis by 4 mm. Prior LEFT hip arthroplasty. Mild narrowing of the RIGHT hip joint. CT/CT abdomen pelvis wo con [id number] IMPRESSION: 1. No acute abdominal or pelvic abnormalities are identified. 2. Mild diffuse constipation. 3. No ascites. 4. Prior cholecystectomy, hysterectomy. Elevated RIGHT hemidiaphragm is chroni c. 5. Mild gastric wall thickening. Very similar to prior studies and may represe nt a mild gastritis.
[2021-09-25] MEDS: barium sulfate 450 mL Oral Susp PO (14:07)
== END 2021-09-25 12:05 | disposition home or self-care (01) ==
LOC: RAD 12:11
PROVIDERS: PCP Family Medicine; Visit Provider Family Medicine
DX: R10.9 Unspecified abdominal pain (principal)
CPT/HCPCS: 74176

== ENCOUNTER 2022-01-20 14:31 | Emergency (ER) | payer MEDICARE, MEDICAID, SELFPAY ==
[2022-01-20 14:46] VITALS: BP 140/100; PULSE 89; RESP 15; TEMP 36.9; O2SAT 95; BMI 29.2
--- NOTE | 2022-01-20 15:10 | XR_ITS ---
WS: [id number] Exam: XR ankle LT min 3V* [id number] Date/Time of Exam: 01/20/2022 3:20 PM Reason For Exam: Left ankle pain Comparison 09/29/2015. Findings: Multiple views of the ankle reveal no fracture or displacements of bone. No soft tissue swelling is present. There are no periosteal reactions noted. The talus and calcaneus are in adequate position. The joint space is smooth and equidistant. XR/XR ankle LT min 3V* [id number] IMPRESSION: Negative left ankle.
--- NOTE | 2022-01-20 15:10 | USCV_ITS ---
Jaye Jarquin Age: 81 Gender: F : 1940 Exam Date: 01/20/2022 15:25 Ordering Phys: Torres Pedraza Technologist: Mo Antonio [place] [facility] Indication: LLE PAIN HISTORY: Lower extremity pain. PROCEDURES: Venous duplex imaging was performed in only the left lower extremity. The following venous structures were evaluated: common femoral vein, profunda vein, proximal portion of the greater saphenous vein, superficial femoral vein, and the popliteal vein. In addition, the posterior tibial and peroneal trunk were evaluated. Serial compression, augmentation maneuvers, and spectral Doppler flow evaluation were performed. FINDINGS: Normal 2-D Doppler and augmentation and compressibility throughout the lower extremity venous structures. Additional imaging through the proximal calf veins also reveals no thrombus. Limited evaluation of the greater saphenous vein is patent with no thrombus. CONCLUSIONS No DVT left lower extremity. Dr. Akilah Miranda DO (Electronically Signed) Final Date: 20 January 2022 16:30 S
--- NOTE | 2022-01-20 15:22 | W.ED.EXTPRO ---
HPI - Extremity Problem General: Chief complaint: Extremity Problem,Nontraumatic Stated complaint: Left leg and ankle pain Time Seen by Provider: 01/20/22 14:56 History of Present Illness: Patient is an 81-year-old female comes to the ED with left lower extremity complaint. Patient says last night she noticed she was having some pain in her left lower leg and left ankle. Denies any injury or trauma to cause symptoms. This morning she woke up and she had some bruising noted over left ankle and left lower leg. She endorses having pain that she rates a 7 out of 10. Says her ankle feels a little stiff and her left calf is sore as well. She is not on any blood thinners. Associated symptoms: Deny chest pain, fever(s) or rash Review of Systems Const: Denies: fever(s), chills or fatigue Eyes: Denies: change in vision or eye discomfort ENMT: Denies: throat pain, odynophagia, nasal discharge or nasal congestion Card: Denies: chest pain, palpitations, edema, swelling of feet/ankles, dyspnea on exertion or orthopnea Resp: Denies: dyspnea, productive cough or non-productive cough GI: Denies: abdominal pain, nausea, vomiting, diarrhea, constipation or hematochezia : Denies: flank pain, dysuria or hematuria Musc: Reports: extremity pain (Left lower leg and ankle); Denies: neck pain, back pain or extremity swelling Skin/Breast: Denies: rash or new lesions Neuro: Denies: headache(s), numbness in extremities or weakness in extremities [facility] ED PFSH: Medical History History of genital organ removal vulvectomy History of urethral stricture History of UTI Mixed stress and urge urinary incontinence Urinary frequency Surgical History History of appendectomy History of back surgery History of cholecystectomy History of fundoplication History of total hip replacement Family History Father Cancer Social History Smoking and tobacco status: current every day smoker Alcohol intake: never Adopted: No Caregiver/support person: No Lives independently: No Household members: spouse Marital status: Current occupational status: retired History of recent travel: No Current gender identity: Female Physical Exam Const: COMMON NORMALS: no acute distress, patient oriented x3 and alert GENERAL APPEARANCE: cooperative and comfortable HENMT: COMMON NORMALS: normocephalic HEAD & SCALP: normocephalic MOUTH: Normal oral and palatal mucosa present THROAT: posterior oropharynx normal and uvula midline Neck/C-Spine: COMMON NORMALS: supple GENERAL: Yes normal visual inspection Resp: COMMON NORMALS: normal respiratory effort, No retractions, No use of accessory muscles and clear to auscultation bilaterally AUSCULTATION: clear to auscultation bilaterally Cardio: COMMON NORMALS: regular rate, regular rhythm, S1 normal heart sound present, S2 normal heart sound present, No gallops present (Cardio), No clicks present (Cardio), No murmurs present (Cardio) and Peripheral pulses 2+ throughout RATE: regular rate RHYTHM: regular rhythm HEART SOUNDS: S1 normal heart sound present and S2 normal heart sound present PERIPHERAL PULSES: Peripheral pulses 2+ throughout GI: COMMON NORMALS: Normal to inspection, nondistended, normoactive bowel sounds present, Soft to palpation, non-tender and no masses PALPATION: Yes Soft to palpation : COMMON NORMALS: Yes no CVA tenderness BLADDER/KIDNEY EXAM: Yes no CVA tenderness Back/Pelvis: COMMON NORMALS: no CVA tenderness Extremity: NARRATIVE EXTREMITY EXAM: Left ankle?full range of motion noted. No deformity seen. Some ecchymosis over the medial aspect of ankle. GENERAL: Yes calf tenderness (Left calf) Neuro: COMMON NORMALS: patient oriented x3 SENSORIUM/ORIENTATION: Yes alert GAIT: Yes Normal gait present Skin: GENERAL SKIN EXAM: dry skin Course Vital Signs: Vital signs: Vital Signs Temperature 98.4 F 01/20/22 14:46 Pulse Rate 89 01/20/22 14:46 Respiratory Rate 17 01/20/22 15:53 Blood Pressure 140/100 01/20/22 14:46 Pulse Oximetry 95 01/20/22 14:46 Oxygen Delivery Me thod 01/20/22 14:46 Oxygen Flow Rate 2 01/20/22 14:46 MDM - Extremity (Nontraumatic) Medical Decision Making Patient is an 81-year-old female comes to the ED with left lower extremity complaint. Patient says last night she noticed she was having some pain in her left lower leg and left ankle. Denies any injury or trauma to cause symptoms. Denies any chest pain, shortness of breath or hemoptysis. She has some left calf tenderness. Little bit of ecchymosis over medial aspect of ankle but she has full range of motion in ankle. X-ray of left ankle shows no acute fractures. Ultrasound venous duplex of left lower extremity showed no DVT or blood clots seen. Patient was stable for discharge home and diagnosed with pain of left lower extremity. Told to follow-up with her PCP within the next week for reevaluation. Return ED precautions given. Patient understood and agreed with plan. Lab Data Radiology Impressions Ankle X-Ray 01/20/22 15:10 IMPRESSION: Negative left ankle. Discharge Plan Discharge Patient Disposition: Home Clinical Impression: Pain of left lower extremity Condition: Stable Prescriptions: No Action Incruse Ellipta 62.5 mcg/actuation blister with device 1 inh INHALATION DAILY polyethylene glycol 3350 [GlycoLax] 17 gram/dose powder 17 gm PO DAILY PRN (Reason: Constipation) albuterol sulfate 90 mcg/actuation HFA aerosol inhaler 1 inh INHALATION QID omeprazole 20 mg capsule,delayed release(DR/EC) 20 mg PO DAILY nystatin 100,000 unit/gram cream 1 applic TOPICAL .prn duloxetine 20 mg capsule,delayed release(DR/EC) 20 mg PO DAILY donepezil [Aricept] 10 mg tablet 10 mg PO DAILY docusate sodium [Colace] 100 mg capsule 100 mg PO BID vitamin B complex [B Complex-Vitamin B12] Tablet 1 tab PO DAILY Spiriva with HandiHaler 18 mcg capsule, w/inhalation device 1 cap INHALATION DAILY Calcium 600 with Vitamin D3 600 mg(1,500mg) -400 unit tablet,chewable 1 tab PO DAILY mirtazapine 15 mg tablet 15 mg PO BEDTIME morphine 15 mg tablet 15 mg PO Q6H PRN (Reason: Pain) morphine 30 mg tablet extended release 30 mg PO Q12H Discharge Orders: Discharge ED (Routine); Ordered 01/20/22 Ordered By: Torres Pedraza Referrals: Naomi Lyn MD [Primary Care Provider] - Discharge Diet: Regular Discharge Activity: Increase activity as tolerated Activity Restrictions/Additional Instructions: Follow-up with medical provider as directed in the next 5 to 7 days for reevaluation. Continue taking all home medications as previously prescribed. Return to the ER or your medical provider if condition worsens. Please read and understand discharge instructions. Thank you for choosing [facility] for your healthcare needs today. Please realize this is an emergency room and that we are providing you with a medical screening exam and this may not be complete and all inclusive of all the testing and or work up that you may need to determine your ailment or severity of your illness. It is very important that you follow up as instructed or that you return to the Emergency Department should you have concerns or if your condition changes or worsens in any way. Coding Level of Care Code ED Collections And Archives Director for Nelia Fwyasmin Exam Comprehensive
[2022-01-20 15:53] VITALS: RESP 17
[2022-01-20] MEDS: morphine 4 mg/mL SDV 1 mL IM (15:53)
[2022-01-20] MEDS: ondansetron 2 mg/ML SDV 2 mL 4 MG IM (15:56)
== END 2022-01-20 16:36 | disposition home or self-care (01) ==
PROVIDERS: Emergency Provider Physician Assistant; PCP Family Medicine
DX: M79.605 Pain in left leg (principal); F17.210 Nicotine dependence, cigarettes, uncomplicated
CPT/HCPCS: 73610; 93971; 96372; 99285; J2270; J2405

== ENCOUNTER 2022-01-21 12:50 | Emergency (ER) | payer MEDICARE, MEDICAID, SELFPAY ==
[2022-01-21 13:34] VITALS: BP 119/58; PULSE 70; RESP 17; TEMP 36.8; O2SAT 91; BMI 29.2
[2022-01-21 15:15] LABS: Basophils # 0.1 10^3/uL (0.0-0.1); Basophils % 1.1 %; Eosinophils # 0.1 10^3/uL (0.0-0.8); Eosinophils % 2.4 %; Hematocrit 43.6 % (37.0-47.0); Hemoglobin 13.1 g/dL (11.5-15.3); Lymphocytes # 1.5 10^3/uL (0.8-4.8); Mean Corpuscular Hemoglobin 30.8 pg (28.0-34.0); Mean Corpuscular Volume 102.3 fl (81-99); Mean Platelet Volume 9.6 fL (7.4-10.4); Monocytes # 0.5 10^3/uL (0.2-0.9); Monocytes % 9.9 %; Neutrophils # 3.11 10^3/uL (1.8-7.7); Nucleated Red Blood Cells % 0 %; Platelet Count 242 10^3/cmm (130-400); Red Blood Count 4.26 10^6/uL (4.1-5.3); Red Cell Distribution Width 14.9 % (12.1-15.1); White Blood Count 5.4 10^3/uL (4.0-10.0)
[2022-01-21 15:33] LABS: Alanine Aminotransferase 11 U/L (0-33); Alkaline Phosphatase 104 U/L (35-105); Anion Gap 12.2 (5-19); Aspartate Amino Transferase 20 U/L (0-32); Blood Urea Nitrogen 12 mg/dL (8-23); Carbon Dioxide 33 mmol/L (22-29); Chloride 98 mmol/L (98-107); Globulin 3.3 g/dL (1.3-4.6); Glucose 99 mg/dL (65-115); Osmolality Calculated 288 mOsm/kg (285-295); Potassium 4.2 mmol/L (3.5-5.1); Sodium 139 mmol/L (136-145); Total Bilirubin 0.2 mg/dL (0.15-1.2); Total Protein 7.3 g/dL (6.6-8.7)
[2022-01-21 16:11] VITALS: BP 125/62; PULSE 67; RESP 17; TEMP 36.8; O2SAT 91
--- NOTE | 2022-01-21 23:58 | ED_ITS ---
HPI - Extremity Problem General: Chief complaint: Extremity Problem,Nontraumatic Stated complaint: Left leg pains History of Present Illness: Client reports today for bruising to her left lower extremity. She reports that she was actually seen in the ER yesterday for the same problem. She states that this morning she woke up and the bruising seemed worse. Patient denies any trauma to the leg. She reports that she always has a purpleish bluish discoloration of both lower extremities and feet. Associated symptoms: Deny chest pain or fever(s) Review of Systems Const: Denies: fever(s) or chills Card: Denies: chest pain or palpitations Skin/Breast: Reports: other (Bruising to left lower extremity.) [facility] ED PFSH: Medical History History of genital organ removal vulvectomy History of urethral stricture History of UTI Mixed stress and urge urinary incontinence Urinary frequency Surgical History History of appendectomy History of back surgery History of cholecystectomy History of fundoplication History of total hip replacement Family History Father Cancer Social History Smoking and tobacco status: current every day smoker Alcohol intake: never Adopted: No Caregiver/support person: No Lives independently: No Household members: spouse Marital status: Current occupational status: retired History of recent travel: No Current gender identity: Female Physical Exam Const: COMMON NORMALS: no acute distress, patient oriented x3 and alert Resp: COMMON NORMALS: normal respiratory effort and No use of accessory muscles Extremity: NARRATIVE EXTREMITY EXAM: Patient has superficial abrasions to the left lower massey and surrounding bruising mid tibial with patchy bruising distally down the massey and then on the dorsal ankle/foot. Some bruising noted to the lateral aspect of the ankle. Patient is bearing weight on the ankle. She only has some tenderness over the massey where the abrasion is. No obvious bony or soft tissue deformity. Neuro: COMMON NORMALS: patient oriented x3 SENSORIUM/ORIENTATION: Yes alert Course Vital Signs: Vital signs: Vital Signs Temperature 98.2 F 01/21/22 16:11 Pulse Rate 67 01/21/22 16:11 Respiratory Rate 17 01/21/22 16:11 Blood Pressure 125/62 01/21/22 16:11 Pulse Oximetry 91 01/21/22 16:11 Oxygen Delivery Me thod 01/21/22 13:34 Oxygen Flow Rate 2 01/21/22 13:34 MDM - Extremity (Nontraumatic) Medical Decision Making Patient is in today for bruising to her left lower extremity. She was actually seen yesterday and had a comprehensive work-up including venous duplex and an x- ray. Both of which were negative. Patient was sent home with conservative treatment for leg pain. She returns today because she noticed that the bruising seemed to be worsening and trailing down her leg. We discussed the typical course of healing with bruising and that it is not uncommon for the bruising to trailed down the extremity because of gravity. We discussed conservative treatments for her leg at home. I recommend that she follow-up with her primary care provider next week for reevaluation. She can always return to the ER should she have any new or worsening symptoms. I discussed that with patient. She verbalized understanding of all instruction. All questions were answered to satisfaction Lab Data : 01/21/22 15:08 01/21/22 15:08 Laboratory Results WBC 5.4 10^3/uL (4.0-10.0) 01/21/22 15:08 RBC 4.26 10^6/uL (4.1-5.3) 01/21/22 15:08 Hgb 13.1 g/dL (11.5-15.3) 01/21/22 15:08 Hct 43.6 % (37.0-47.0) 01/21/22 15:08 MCV 102.3 fl (81-99) H 01/21/22 15:08 MCH 30.8 pg (28.0-34.0) 01/21/22 15:08 MCHC 30.0 g/dL (30.0-36.0) 01/21/22 15:08 RDW 14.9 % (12.1-15.1) 01/21/22 15:08 Plt Count 242 10^3/cmm (130-400) 01/21/22 15:08 MPV 9.6 fL (7.4-10.4) 01/21/22 15:08 Neut % (Auto) 58.0 % 01/21/22 15:08 Lymph % (Auto) 28.0 % 01/21/22 15:08 [place] % (Auto) 9.9 % 01/21/22 15:08 Eos % (Auto) 2.4 % 01/21/22 15:08 Baso % (Auto) 1.1 % 01/21/22 15:08 Neut # (Auto) 3.11 10^3/uL (1.8-7.7) 01/21/22 15:08 Lymph # (Auto) 1.5 10^3/uL (0.8-4.8) 01/21/22 15:08 [place] # (Auto) 0.5 10^3/uL (0.2-0.9) 01/21/22 15:08 Eos # (Auto) 0.1 10^3/uL (0.0-0.8) 01/21/22 15:08 Baso # (Auto) 0.1 10^3/uL (0.0-0.1) 01/21/22 15:08 Nucleated RBC % (auto) 0 % 01/21/22 15:08 Nucleated RBCs # 0.0 /100WBC 01/21/22 15:08 Sodium 139 mmol/L (136-145) 01/21/22 15:08 Potassium 4.2 mmol/L (3.5-5.1) 01/21/22 15:08 Chloride 98 mmol/L (98-107) 01/21/22 15:08 Carbon Dioxide 33 mmol/L (22-29) H 01/21/22 15:08 Anion Gap 12.2 (5-19) 01/21/22 15:08 BUN 12 mg/dL (8-23) 01/21/22 15:08 Creatinine 0.9 mg/dL (0.5-0.9) 01/21/22 15:08 GFR Calculation Not Reportable 01/21/22 15:08 Glucose 99 mg/dL (65-115) 01/21/22 15:08 Calculated Osmolality 288 mOsm/kg (285-295) 01/21/22 15:08 Calcium 9.0 mg/dL (8.5-10.5) 01/21/22 15:08 Total Bilirubin 0.2 mg/dL (0.15-1.2) 01/21/22 15:08 AST 20 U/L (0-32) 01/21/22 15:08 ALT 11 U/L (0-33) 01/21/22 15:08 Alkaline Phosphatase 104 U/L (35-105) 01/21/22 15:08 Total Protein 7.3 g/dL (6.6-8.7) 01/21/22 15:08 Albumin 4.0 g/dL (3.5-5.2) 01/21/22 15:08 Globulin 3.3 g/dL (1.3-4.6) 01/21/22 15:08 Discharge Plan Discharge Patient Disposition: Home Clinical Impression: Contusion of left leg Condition: Stable Prescriptions: No Action Incruse Ellipta 62.5 mcg/actuation blister with device 1 inh INHALATION DAILY polyethylene glycol 3350 [GlycoLax] 17 gram/dose powder 17 gm PO DAILY PRN (Reason: Constipation) albuterol sulfate 90 mcg/actuation HFA aerosol inhaler 1 inh INHALATION QID omeprazole 20 mg capsule,delayed release(DR/EC) 20 mg PO DAILY nystatin 100,000 unit/gram cream 1 applic TOPICAL .prn duloxetine 20 mg capsule,delayed release(DR/EC) 20 mg PO DAILY donepezil [Aricept] 10 mg tablet 10 mg PO DAILY docusate sodium [Colace] 100 mg capsule 100 mg PO BID vitamin B complex [B Complex-Vitamin B12] Tablet 1 tab PO DAILY Spiriva with HandiHaler 18 mcg capsule, w/inhalation device 1 cap INHALATION DAILY Calcium 600 with Vitamin D3 600 mg(1,500mg) -400 unit tablet,chewable 1 tab PO DAILY mirtazapine 15 mg tablet 15 mg PO BEDTIME morphine 15 mg tablet 15 mg PO Q6H PRN (Reason: Pain) morphine 30 mg tablet extended release 30 mg PO Q12H Discharge Orders: Discharge ED (Routine); Ordered 01/21/22 Ordered By: Ellie Aguilar Referrals: Naomi Lyn MD [Primary Care Provider] - Discharge Diet: Usual diet Discharge Activity: Resume usual activity Activity Restrictions/Additional Instructions: I recommend conservative treatments at home including resting the extremity, elevating the extremity, icing the extremity as needed to help with pain and swelling. This should resolve over the next 1 to 2 weeks. Please follow-up with your primary care provider as needed for any persisting symptoms. Return to the ER as needed for any new or worsening symptoms. Coding Level of Care Code ED Counter Top Assembler for Nelia Diaz
== END 2022-01-21 16:12 | disposition home or self-care (01) ==
PROVIDERS: Emergency Medicine; Emergency Provider Nurse Practitioner Family; PCP Family Medicine
DX: S80.12XA Contusion of left lower leg, initial encounter (principal); F17.210 Nicotine dependence, cigarettes, uncomplicated; X58.XXXA Exposure to other specified factors, initial encounter
CPT/HCPCS: 36415; 80053; 85025; 99283

== ENCOUNTER 2022-09-12 18:12 | Inpatient (IN) | payer MEDICARE, MEDICAID, SELFPAY ==
[2022-09-12] VITALS (16 sets, daily range): BP systolic 104–154; BP diastolic 68–102; PULSE 70–87; RESP 16–26; TEMP 36.1–37.1; O2SAT 88–94
--- NOTE | 2022-09-12 18:29 | XRR_ITS ---
PROCEDURE INFORMATION: Exam: XR Chest Exam date and time: 09/12/2022 6:54 PM Age: 81 years old Clinical indication: Shortness of breath; Additional info: SOB TECHNIQUE: Imaging protocol: Radiologic exam of the chest. Views: 1 view. COMPARISON: CR XR chest 1V portable [id number] 09/23/2020 11:00 AM FINDINGS: Lungs: Low lung volumes and bronchovascular crowding. Mild increased interstitial opacities throughout both lungs. There has been interval increased opacity in the right lower lobe and adjacent atelectasis. Superimposed consolidation or pneumonia can not be excluded. Bibasilar opacities likely atelectasis. Pleural spaces: Small volume sub pulmonic and layering right pleural effusion is noted. Minimal left pleural effusion is also suspected.. Heart/Mediastinum: The cardiomediastinal silhouette is enlarged but stable compared to the prior. Vasculature: The thoracic aorta is tortuous and atherosclerotic. Bones/joints: There are degenerative changes of the spine and shoulder joints. Intraperitoneal space: Metallic clips overlay the upper abdomen. XR/XR chest 1V portable [id number] IMPRESSION: 1. Interval small right pleural effusion and adjacent atelectasis. Superimposed infection can not be excluded. Minimal left pleural effusion can not be excluded. 2. Low lung volumes and bronchovascular crowding. Subtle increased interstitial opacities may represent subtle pulmonary edema. Atypical infection can give a similar appearance.
[2022-09-12 18:42] LABS: Arterial Blood Gas Hematocrit 37.6 % (37-47); Base Excess ABG 6.3 mmol/L (-2.0-2.0); Blood Gas Allen Test Pos; Blood Gas Operator Identificat WALCI; Blood Gas Sample Site Radial, left; Blood Gas Sample Type Arterial; HCO3 ABG 34.9 mmol/L (22-26); HGB O2 Sat 86.7 % (95-100); Methemoglobin 0.6 % (0.4-1.5); Oxygen Device NC; PO2 ABG 62.6 mmHg (80.0-100.0); Total Hemoglobin 12.3 g/dL (12-16)
[2022-09-12 18:43] LABS: ABG PCO2 71.3 mmHg (35-45)
--- NOTE | 2022-09-12 18:43 | W.ED.SOB ---
HPI - SOB/Dyspnea General: Chief Complaint: Shortness of Breath/Dyspnea Stated Complaint: SOB Time Seen by Provider: 09/12/22 18:15 History of Present Illness: HPI Narrative: 81-year-old female with a history of COPD. She presents with shortness of breath. Family became concerned, because they noticed her having trouble breathing, although the patient denies. Evidently, her pulse ox was in the 40s at home off of her oxygen, which she is supposed to be wearing. On oxygen, EMS obtained a pulse ox in the mid 80s. She is in no distress. She notes no increased shortness of breath from prior. No increased cough or sputum production. No fever. No chest pain no increased lower extremity swelling. MD elicited complaint: shortness of breath Pertinent past history: COPD Onset (ago): hour(s) Timing: intermittent Exacerbating factors: lying flat and exertion Relieving factors: oxygen Known history of: COPD Associated symptoms: Reports cough and orthopnea; Deny abdominal pain, chest congestion, chest pain, dizziness, extremity pain, fever(s) or vomiting Related Data: Home oxygen amount: 3 liters Review of Systems Const: Denies: fever(s) ENMT: Denies: throat pain Card: Reports: orthopnea; Denies: chest pain Resp: Reports: dyspnea; Denies: productive cough, non-productive cough or chest congestion GI: Denies: abdominal pain or vomiting Musc: Denies: extremity pain Neuro: Denies: dizziness PFS ED PFSH: Medical History History of genital organ removal vulvectomy History of urethral stricture History of UTI Mixed stress and urge urinary incontinence Urinary frequency Surgical History History of appendectomy History of back surgery History of cholecystectomy History of fundoplication History of total hip replacement Family History Father Cancer Social History Smoking and tobacco status: current every day smoker Alcohol intake: never Substance/Drug Use: never Adopted: No Caregiver/support person: No Lives independently: No Household members: spouse Marital status: Current occupational status: retired Current gender identity: Female Physical Exam Const: GENERAL APPEARANCE: cooperative and frail appearing HENMT: COMMON NORMALS: normocephalic and atraumatic HEAD & SCALP: normocephalic and atraumatic FACE & SINUS: normal facial exam and face symmetric Eye: COMMON NORMALS: Equal, round and reactive pupils present and EOMs intact bilaterally PUPIL: Yes Equal, round and reactive pupils present Chest: CHEST: Yes Symmetrical chest wall rise Resp: COMMON NORMALS: normal respiratory effort AUSCULTATION: diminished lung sounds Cardio: COMMON NORMALS: regular rate and regular rhythm RATE: regular rate RHYTHM: regular rhythm GI: COMMON NORMALS: Normal to inspection, nondistended, normoactive bowel sounds present Extremity: COMMON NORMALS: no pedal edema Neuro: JUAN JOSÉ COMA SCALE: document GCS findings Juan José coma scale eye opening: Spontaneous Juan José coma scale verbal response: Orientated [place] coma scale motor response: Obey commands Juan José coma scale total score: 15 Psych: COMMON NORMALS: mental status grossly normal and cooperative Skin: NARRATIVE SKIN EXAM: Abrasions to bilateral lower legs Course Vital Signs: Vital signs: Vital Signs Temperature 98.7 F 09/12/22 18:15 Pulse Rate 86 09/12/22 20:47 Respiratory Rate 26 H 09/12/22 20:47 Blood Pressure 122/102 09/12/22 20:47 Pulse Oximetry 92 09/12/22 20:47 Oxygen Delivery Me thod BiPAP 09/12/22 20:12 Oxygen Flow Rate 4 09/12/22 18:48 Fraction of Inspir ed Oxygen 40 09/12/22 18:53 MDM - SOB/Dyspnea Medical Decision Making Initial blood gas shows pH is 7.29 with a PCO2 of 71, and PO2 of 63. She is placed on BiPAP. Improved oxygenation immediately. Other work-up is pending Chest x-ray reveals right pleural effusion and adjacent atelectasis there is pulmonary edema present. There is a small left pleural effusion as well. CBC is normal. Creatinine is up to 1.6 which is above her baseline. Lactate is normal at 1.3. COVID antigen is negative. BNP is significantly elevated at 24,000. Initially, she was treated with dexamethasone 10, nebulizer treatments, and BiPAP. She is also given Lasix 80 mg IV. Ledezma catheter is placed, as the patient is quite weak. Spoke with hospitalist. She will go to the ICU Lab Data 09/12/22 18:49 09/12/22 18:49 Labs/Radiology: Radiology Impressions Chest X-Ray 09/12/22 18:29 IMPRESSION: 1. Interval small right pleural effusion and adjacent atelectasis. Superimposed infection can not be excluded. Minimal left pleural effusion can not be excluded. 2. Low lung volumes and bronchovascular crowding. Subtle increased interstitial opacities may represent subtle pulmonary edema. Atypical infection can give a similar appearance. Laboratory Results WBC 4.9 10^3/uL (4.0-10.0) 09/12/22 18:49 RBC 4.13 10^6/uL (4.1-5.3) 09/12/22 18:49 Hgb 11.8 g/dL (11.5-15.3) 09/12/22 18:49 Hct 41.6 % (37.0-47.0) 09/12/22 18:49 MCV 100.7 fl (81-99) H 09/12/22 18:49 MCH 28.6 pg (28.0-34.0) 09/12/22 18:49 MCHC 28.4 g/dL (30.0-36.0) L 09/12/22 18:49 RDW 17.3 % (12.1-15.1) H 09/12/22 18:49 Plt Count 266 10^3/cmm (130-400) 09/12/22 18:49 MPV 9.8 fL (7.4-10.4) 09/12/22 18:49 Neut % (Auto) 68.8 % 09/12/22 18:49 Lymph % (Auto) 20.4 % 09/12/22 18:49 [place] % (Auto) 8.6 % 09/12/22 18:49 Eos % (Auto) 0.6 % 09/12/22 18:49 Baso % (Auto) 1.0 % 09/12/22 18:49 Neut # (Auto) 3.36 10^3/uL (1.8-7.7) 09/12/22 18:49 Lymph # (Auto) 1.0 10^3/uL (0.8-4.8) 09/12/22 18:49 [place] # (Auto) 0.4 10^3/uL (0.2-0.9) 09/12/22 18:49 Eos # (Auto) 0.0 10^3/uL (0.0-0.8) 09/12/22 18:49 Baso # (Auto) 0.1 10^3/uL (0.0-0.1) 09/12/22 18:49 Nucleated RBC % (auto) 0 % 09/12/22 18:49 Nucleated RBCs # 0.0 /100WBC 09/12/22 18:49 Specimen Type Arterial 09/12/22 18:31 Sample Site Radial, left 09/12/22 18:31 ABG pH 7.30 (7.35-7.45) L 09/12/22 18:31 ABG pCO2 71.3 mmHg (35-45) H* 09/12/22 18:31 ABG pO2 62.6 mmHg (80.0-100.0) L 09/12/22 18:31 ABG HCO3 34.9 mmol/L (22-26) H 09/12/22 18:31 ABG Base Excess 6.3 mmol/L (-2.0-2.0) H 09/12/22 18:31 Pj Test Pos 09/12/22 18:31 Hematocrit 37.6 % (37-47) 09/12/22 18:31 Hgb O2 Saturation 86.7 % (95-100) L 09/12/22 18:31 Carboxyhemoglobin 2.0 %THgb (0.4-20.1) 09/12/22 18:31 Methemoglobin 0.6 % (0.4-1.5) 09/12/22 18:31 Total Hemoglobin 12.3 g/dL (12-16) 09/12/22 18:31 O2 Delivery Device Nc 09/12/22 18:31 O2 Liters/Min 4.0 % 09/12/22 18:31 Dial Refinisher ID [email or web address] 09/12/22 18:31 Sodium 139 mmol/L (136-145) 09/12/22 18:49 Potassium 4.4 mmol/L (3.5-5.1) 09/12/22 18:49 Chloride 97 mmol/L (98-107) L 09/12/22 18:49 Carbon Dioxide 34 mmol/L (22-29) H 09/12/22 18:49 Anion Gap 12.4 (5-19) 09/12/22 18:49 BUN 17 mg/dL (8-23) 09/12/22 18:49 Creatinine 1.6 mg/dL (0.5-0.9) H 18 18:49 GFR Calculation Not Reportable 09/12/22 18:49 Glucose 104 mg/dL (65-115) 18 18:49 Calculated Osmolality 290 mOsm/kg (285-295) 09/12/22 18:49 Lactic Acid 1.3 mmol/L (0.5-2.2) 09/12/22 18:49 Calcium 8.3 mg/dL (8.5-10.5) L 09/12/22 18:49 Magnesium 1.8 mg/dL (1.7-2.3) 09/12/22 18:49 Total Bilirubin 0.2 mg/dL (0.15-1.2) 09/12/22 18:49 AST 31 U/L (0-32) 09/12/22 18:49 ALT 11 U/L (0-33) 09/12/22 18:49 Alkaline Phosphatase 105 U/L (35-105) 09/12/22 18:49 NT-Pro-B Natriuret Pep 92783 pg/mL (0-450) H 09/12/22 18:49 Total Protein 7.1 g/dL (6.6-8.7) 18 18:49 Albumin 3.8 g/dL (3.5-5.2) 18 18:49 Globulin 3.3 g/dL (1.3-4.6) 09/12/22 18:49 SARS-CoV-2 Ag (Rapid) negative (Negative) 09/12/22 19:30 Critical Care Time Critical Care Time: Critical Care Time: Yes Total Critical Care Time: 35 Attestation: This case had a high probability of a clinically significant, sudden, or life threatening deterioration of this patient's condition which required my full and direct attention, intervention and personal management. Time excludes any procedures performed. Discharge Plan Discharge Admit Provider: Emperatriz Lee Clinical Impression: Acute exacerbation of chronic obstructive pulmonary disease, Respiratory failure, Pulmonary edema Condition: Fair Coding Level of Care Code ED All Around Presser for Tiffanieg Emily
[2022-09-12] MEDS: dexamethasone 10 mg/mL INJ IVP (18:51)
[2022-09-12] MEDS: ipratropium-albuterol 3 mL Neb INHALATION (18:56)
--- NOTE | 2022-09-12 18:56 | ECG_ITS ---
[facility] Test Date: 2022-09-12 Pat Name: Jaye Jarquin Department: Room: Gender: Female Chucking Lathe Operator: : 1940 Requested By: Prudencio Macdonald Order Number: [id number] Mago MD: Ronny Davis M.D. Measurements Intervals [place] Rate: 72 P: 7 NV: 199 QRS: -68 QRSD: 88 T: -11 QT: 392 QTc: 430 Interpretive Statements SINUS RHYTHM WITH OCCASIONAL ECTOPIC PREMATURE COMPLEXES LEFT AXIS DEVIATION [QRS AXIS < -30] MINIMAL ST DEPRESSION [0.025+ mV ST DEPRESSION] Compared to ECG 09/23/2020 14:24:34 Left-axis deviation now present ST (T wave) deviation now present Left anterior fascicular block no longer present T-wave abnormality no longer present Possible ischemia no longer present Electronically Signed On 09-13-2022 7:55:04 CDT by Ronny Davis M.D. [email or web address]
[2022-09-12 19:03] LABS: Basophils # 0.1 10^3/uL (0.0-0.1); Eosinophils % 0.6 %; Hematocrit 41.6 % (37.0-47.0); Hemoglobin 11.8 g/dL (11.5-15.3); Lymphocytes % 20.4 %; Mean Corpuscular HGB Conc 28.4 g/dL (30.0-36.0); Mean Corpuscular Hemoglobin 28.6 pg (28.0-34.0); Mean Corpuscular Volume 100.7 fl (81-99); Mean Platelet Volume 9.8 fL (7.4-10.4); Monocytes # 0.4 10^3/uL (0.2-0.9); Monocytes % 8.6 %; Neutrophils # 3.36 10^3/uL (1.8-7.7); Neutrophils % 68.8 %; Nucleated Red Blood Cells % 0 %; Platelet Count 266 10^3/cmm (130-400); Red Blood Count 4.13 10^6/uL (4.1-5.3); Red Cell Distribution Width 17.3 % (12.1-15.1); White Blood Count 4.9 10^3/uL (4.0-10.0)
[2022-09-12 19:22] LABS: Lactic Sepsis W/Reflex 1.3 mmol/L (0.5-2.2)
[2022-09-12 19:33] LABS: Alanine Aminotransferase 11 U/L (0-33); Albumin Level 3.8 g/dL (3.5-5.2); Alkaline Phosphatase 105 U/L (35-105); Anion Gap 12.4 (5-19); Aspartate Amino Transferase 31 U/L (0-32); Blood Urea Nitrogen 17 mg/dL (8-23); Calcium 8.3 mg/dL (8.5-10.5); Carbon Dioxide 34 mmol/L (22-29); Chloride 97 mmol/L (98-107); Globulin 3.3 g/dL (1.3-4.6); Glucose 104 mg/dL (65-115); Magnesium 1.8 mg/dL (1.7-2.3); NT Pro B Type Natriuretic Pept 24747 pg/mL (0-450); Osmolality Calculated 290 mOsm/kg (285-295); Potassium 4.4 mmol/L (3.5-5.1); Sodium 139 mmol/L (136-145); Total Bilirubin 0.2 mg/dL (0.15-1.2); Total Protein 7.1 g/dL (6.6-8.7)
[2022-09-12 20:08] LABS: SARS Covid-2 Antigen negative (Negative)
[2022-09-12] MEDS: FUROsemide 10 mg/mL SDV 10mL 80 MG IVP (20:44)
--- NOTE | 2022-09-12 21:27 | PC.NURSE ---
Report called to Monie in ICU.
--- NOTE | 2022-09-12 22:08 | PM.HP ---
Providers/Chief Complaint Admitting Physician: Emperatriz Lee MD Primary Care Provider: Naomi Lyn MD Chief Complaint: SOB History of Present Illness Jaye Jarquin is a 81 year old female with history of end-stage COPD, chronic hypoxic hypercarbic respiratory failure dementia anxiety depression was brought in by family with complaint of low oxygen saturation and discoloration of the skin. As per the daughter she was lying in bed when she noticed bluish discoloration of her face and her oxygen saturation went down to 44% on room air. She usually uses a portable vent at home for her respiratory failure ,her usual oxygen saturations are 84 to 91%. She uses the vent at night and daytime when she is resting. There is a history of loss of appetite for last 2 days but no fever increased cough nausea vomiting urinary or bowel complaints. No history of sick contact present. In the ER ABG showed PCO2 71 PO2 62 saturation 86% on 4 L nasal cannula. She was started on BiPAP given dexamethasone and nebulizer treatments she is saturating 92% on BiPAP currently. Her BNP was found to be 24 747 Review of Systems Narrative: As per HPI Medications/Allergies Home Medications Medication Instructions Recorded Confirmed Last Taken Type albuterol sulfate 90 mcg/actuation 1 inh inhalation QID 05/31/19 10/27/21 Unknown History aerosol inhaler calcium carbonate 600 mg-vitamin 1 tab PO DAILY 05/31/19 10/27/21 09/22/20 History D3 10 mcg (400 unit) chewable tablet (Calcium 600 with Vitamin D3) docusate sodium 100 mg capsule 100 mg PO BID 05/31/19 10/27/21 09/22/20 History (Colace) donepezil 10 mg tablet (Aricept) 10 mg PO DAILY 05/31/19 10/27/21 09/22/20 History duloxetine 20 mg capsule,delayed 20 mg PO DAILY 05/31/19 10/27/21 09/22/20 History release mirtazapine 15 mg tablet 15 mg PO BEDTIME 05/31/19 10/27/21 09/22/20 History morphine 15 mg immediate release 15 mg PO Q6H PRN Pain 05/31/19 10/27/21 Unknown History tablet nystatin 100,000 unit/gram topical 1 applic topical .prn 05/31/19 10/27/21 Unknown History cream omeprazole 20 mg capsule,delayed 20 mg PO DAILY 05/31/19 10/27/21 09/23/20 History release polyethylene glycol 3350 17 17 gm PO DAILY PRN Constipation 05/31/19 10/27/21 Unknown History gram/dose oral powder (GlycoLax) tiotropium bromide 18 mcg capsule 1 cap inhalation DAILY 05/31/19 10/27/21 09/23/20 History with inhalation device (Spiriva with HandiHaler) umeclidinium 62.5 mcg/actuation 1 inh inhalation DAILY 05/31/19 10/27/21 09/22/20 History blister powder for inhalation (Incruse Ellipta) vitamin B complex (B 1 tab PO DAILY 05/31/19 10/27/21 09/22/20 History Complex-Vitamin B12 tablet) morphine 30 mg tablet,extended 30 mg PO Q12H 09/23/20 10/27/21 09/23/20 History release Allergies Allergy/AdvReac Type Severity Reaction Status Date / Time adhesive tape Allergy PULLS SKIN Verified 09/12/22 18:25 OFF codeine Allergy ADR-Itching Verified 09/12/22 18:25 fentanyl Allergy ALGY-Difficulty Verified 09/12/22 18:25 Breathing hydrochlorothiazide Allergy ALGY-Difficulty Verified 09/12/22 18:25 Swallowing,THROAT SWELLING hydrocodone Allergy ADR-Nausea Verified 09/12/22 18:25 hydrogen peroxide Allergy ALGY-Rash Verified 09/12/22 18:25 Iodinated Contrast Media Allergy INDUCED Verified 09/12/22 18:25 CARDIAC ARREST latex Allergy ALGY-Rash Verified 09/12/22 18:25 aspirin AdvReac ADR-Nausea Verified 09/12/22 18:25 oxycodone [From OxyContin] AdvReac ADR-Halluci Verified 09/12/22 18:25 nating triazolam [From Halcion] AdvReac ADR-Insomni Verified 09/12/22 18:25 a PFSH Acute PFSH: Medical History History of genital organ removal vulvectomy History of urethral stricture History of UTI Mixed stress and urge urinary incontinence Urinary frequency Surgical History History of appendectomy History of back surgery History of cholecystectomy History of fundoplication History of total hip replacement Family History Father Cancer Social History Smoking and tobacco status: current every day smoker Alcohol intake: never Substance/Drug Use: never Adopted: No Caregiver/support person: No Lives independently: No Household members: spouse Marital status: Current occupational status: retired Current gender identity: Female Vitals/I&O/Wt Last Vital Signs Temp 98.7 F 09/12/22 18:15 Pulse 78 09/12/22 21:35 Resp 26 H 09/12/22 20:47 BP 145/68 09/12/22 21:35 Pulse Ox 92 09/12/22 21:35 O2 Del Method BiPAP 09/12/22 21:35 O2 Flow Rate 4 09/12/22 18:48 FiO2 40 09/12/22 18:53 Weight last 48 hrs Weight 73.028 kg Physical Exam Narrative: She is alert awake oriented x3 in moderate respiratory distress Chest decreased bilateral breath sounds clear to auscultation no rhonchi or wheezing noted Cardiovascular exam normal Abdomen soft mildly distended nontender bowel sounds normal Extremity 2+ bilateral pedal edema present Urinary Catheter Management: Ledezma: Cath Placed During This Visit: yes Urinary Catheter Date of Insertion: 09/12/22 Urinary Catheter Time of Insertion: 21:00 Data 09/12/22 18:49 09/12/22 18:49 Micro: Microbiology 09/12/22 18:53 Blood Culture - Preliminary Blood SPECIMEN COLLECTED 09/12/22 18:49 Blood Culture - Preliminary Blood SPECIMEN COLLECTED CXR: Radiologist's impression: 1. ? Interval small right pleural effusion and adjacent atelectasis. Superimposed infection can not be excluded. Minimal left pleural effusion can not be excluded. 2. ? Low lung volumes and bronchovascular crowding. Subtle increased interstitial opacities may represent subtle pulmonary edema. Atypical infection can give a similar appearance. EKG 1: My Interpretation: NSR, LAD, occasional premature complexes. ni acute ST T changes. EKG computer-generated impression: SINUS RHYTHM WITH OCCASIONAL ECTOPIC PREMATURE COMPLEXES LEFT AXIS DEVIATION? [QRS AXIS < -30] MINIMAL ST DEPRESSION? [0.025+ mV ST DEPRESSION] A&P Assessment and plan (1) Respiratory failure: (2) Pulmonary edema: (3) Acute exacerbation of chronic obstructive pulmonary disease: (4) Acute renal failure: Plan 81-year-old female with history of end-stage COPD ,chronic hypoxic hypercarbic respiratory failure on mechanical vent at home presented with severe hypoxia and hypercarbia likely secondary to acute on chronic hypoxic hypercarbic respiratory failure due to pneumonia versus pulmonary edema versus acute exacerbation of COPD Admit to ICU Will give IV ceftriaxone 1 g daily IV azithromycin 500 mg daily DuoNebs every 6 hours Continue BiPAP for now Elevated BNP likely due to congestive heart failure and pulmonary edema Will monitor for now Check 2D echo in a.m. Acute renal failure, last creatinine was 0.9 from 01/16. Will give IV fluids normal saline at 60 mL/h with IV Lasix 20 mg daily Resume home medications DVT prophylaxis with's subcutaneous heparin She is comfort measures only as per the family. Attestations Medical Necessity Statement*: In view of acute on chronic hypoxic hypercarbic respiratory failure congestive heart failure and acute renal failure she needs IV antibiotics fluids and stabilization with monitoring. Hence she needs more than 2 days of continued hospitalization Coding Level of Care Code Acute Code for [facility] Fwd Diagnoses Respiratory failure J96.90 Pulmonary edema J81.1 Acute exacerbation of chronic obstructive pulmonary disease J44.1 Acute renal failure N17.9
[2022-09-12] MEDS: cefTRIAXone 1,000 MG in sodium chloride 0.9% (plus) 50 ML 100 MG IV (23:03)
[2022-09-12] MEDS: FUROsemide 10 mg/mL SDV 2mL 20 MG IVP (23:04)
[2022-09-12] MEDS: heparin 5,000 unit/mL INJ 1 mL 5000 UNIT SUBCUT (23:04)
[2022-09-12] MEDS: morphine ER (12 HR) 30 mg tablet PO (23:04)
[2022-09-12] MEDS: sodium chloride 0.9% 1,000 ML 60 ML IV (23:12)
[2022-09-12] MEDS: azithromycin 500 MG in sodium chloride 0.9% 250 ML 250 MG IV (23:13)
[2022-09-12 23:25] LABS: Adenovirus Not Detected (NOT DETECT); Chlamydia Pneumoniae Not Detected (NOT DETECT); Coronavirus 229E,HKU1,NL63,OC4 Not Detected (NOT DETECT); Human Metapneumovirus Not Detected (NOT DETECT); Human Rhinovirus/Enterovirus Not Detected (NOT DETECT); Influenza A Not Detected (NOT DETECT); Influenza A H1 Not Detected (NOT DETECT); Influenza A H1-2009 Not Detected (NOT DETECT); Influenza A H3 Not Detected (NOT DETECT); Influenza B Not Detected (NOT DETECT); Mycoplasma Pneumoniae Not Detected (NOT DETECT); Parainfluenza Virus Type 1 Not Detected (NOT DETECT); Parainfluenza Virus Type 2 Not Detected (NOT DETECT); Parainfluenza Virus Type 3 Not Detected (NOT DETECT); Parainfluenza Virus Type 4 Not Detected (NOT DETECT); Respiratory Syncytial Virus A Not Detected (NOT DETECT); Respiratory Syncytial Virus B Not Detected (NOT DETECT); SARS-COV-2 Not Detected (NOT DETECT)
[2022-09-13] VITALS (107 sets, daily range): BP systolic 95–162; BP diastolic 59–95; PULSE 75–100; RESP 14–34; TEMP 36.2–36.9; O2SAT 78–99
[2022-09-13] MEDS: morphine IR 15 mg Tablet PO (01:20)
[2022-09-13 04:08] LABS: Basophils % 0.4 %; Hematocrit 40.4 % (37.0-47.0); Hemoglobin 11.8 g/dL (11.5-15.3); Lymphocytes # 0.6 10^3/uL (0.8-4.8); Lymphocytes % 11.3 %; Mean Corpuscular HGB Conc 29.2 g/dL (30.0-36.0); Mean Corpuscular Hemoglobin 28.9 pg (28.0-34.0); Mean Corpuscular Volume 98.8 fl (81-99); Monocytes # 0.1 10^3/uL (0.2-0.9); Monocytes % 1.5 %; Neutrophils # 4.64 10^3/uL (1.8-7.7); Neutrophils % 85.7 %; Nucleated Red Blood Cells % 0 %; Platelet Count 267 10^3/cmm (130-400); Red Blood Count 4.09 10^6/uL (4.1-5.3); Red Cell Distribution Width 17.1 % (12.1-15.1); White Blood Count 5.4 10^3/uL (4.0-10.0)
[2022-09-13 04:34] LABS: NT Pro B Type Natriuretic Pept 16653 pg/mL (0-450)
[2022-09-13 04:36] LABS: Alanine Aminotransferase 11 U/L (0-33); Albumin Level 3.3 g/dL (3.5-5.2); Alkaline Phosphatase 103 U/L (35-105); Aspartate Amino Transferase 25 U/L (0-32); Blood Urea Nitrogen 17 mg/dL (8-23); Calcium 8.3 mg/dL (8.5-10.5); Carbon Dioxide 28 mmol/L (22-29); Chloride 97 mmol/L (98-107); Globulin 3.5 g/dL (1.3-4.6); Glucose 114 mg/dL (65-115); Magnesium 1.5 mg/dL (1.7-2.3); Osmolality Calculated 288 mOsm/kg (285-295); Phosphorus 3.4 mg/dL (2.5-4.5); Sodium 138 mmol/L (136-145); Total Bilirubin 0.2 mg/dL (0.15-1.2); Total Protein 6.8 g/dL (6.6-8.7)
[2022-09-13 04:45] LABS: Anion Gap 17.9 (5-19); Potassium 4.9 mmol/L (3.5-5.1)
[2022-09-13] MEDS: ipratropium-albuterol 3 mL Neb INHALATION ×3 (07:39→19:23)
--- NOTE | 2022-09-13 07:57 | PC.PHAR ---
Addendum entered by Anusha Khan 09/13/22 09:12: pts daughter jill verified pts medications-pts daughter states the pt has albuterol for a neb machine and spiriva handihaler [facility] cutter states never filled that medication for the pt- Original Note: pts daughter thai verified some of the pts medications-thai states the pts other daughter jill should know all the pts medications-called jill [phone] no voicemail box set up to leave message
--- NOTE | 2022-09-13 08:18 | USCV_ITS ---
Jaye Jarquin Age: 81 Gender: F : 1940 Exam Date: 09/13/2022 12:13 Ordering Phys: Jamie Gee MD Technologist: Matthew Farris Exam Location: [facility] – [place], [place] Indication: nstemi BP: 124 / 72 HR: 90 Rhythm: Sinus Technical Quality: Adequate MEASUREMENTS (Male / Female) Normal Values 2D ECHO LV Diastolic Diameter PLAX 3.2 cm 4.2 - 5.9 / 3.9 - 5.3 cm LV Systolic Diameter PLAX 2.0 cm IVS Diastolic Thickness 1.1 cm 0.6 - 1.0 / 0.6 - 0.9 cm IVS Systolic Thickness 1.1 cm LVPW Diastolic Thickness 1.0 cm 0.6 - 1.0 / 0.6 - 0.9 cm LVPW Systolic Thickness 1.5 cm LVOT Diameter 2.0 cm LV Ejection Fraction 2D Teich 68.8 % LV Ejection Fraction MOD 2C 73.9 % LV Ejection Fraction 2C AL 73.6 % LA Diameter 3.9 cm M-MODE Aortic Annulus Diameter 3.7 cm LA Ao Ratio MM 1.1 MV E Point Septal Separation 0.8 cm DOPPLER AV Peak Velocity 144.0 cm/s LVOT Peak Velocity 113.0 cm/s AV Area Cont Eq vti 2.5 cm squared AV Area Cont Eq pk 2.5 cm squared MV Area PHT 5.0 cm squared Mitral E to A Ratio 1.0 MV E' Velocity 56.5 cm/s Mitral E to MV E' Ratio 12.5 Mitral E to LV E' Lateral Ratio 11.0 Mitral E to LV E' Septal Ratio 14.4 TR Peak Velocity 146.7 cm/s TR Peak Gradient 8.6 mmHg TV Peak E Velocity 80.0 cm/s Right Atrial Pressure 3.0 mmHg Pulmonary Artery Systolic Pressu 11.6 mmHg RV Acceleration Time 0.1 s FINDINGS Left Ventricle Normal left ventricular size, systolic function and wall thickness, with no regional wall motion abnormalities. Left ventricular ejection fraction is estimated at 65 %. Grade II diastolic dysfunction, moderately elevated filling pressures. Right Ventricle Normal right ventricular size and systolic function. RVSP could not be calculated due to incomplete tricuspid regurgitation velocity profile. Right Atrium Normal right atrial size. Left Atrium Mildly increased left atrial size. Mitral Valve Moderate mitral annular calcification. No mitral valve stenosis. Trace mitral valve regurgitation. Aortic Valve Aortic valve not well visualized. Probably trileaflet aortic valve. No aortic valve stenosis. No aortic valve regurgitation. Tricuspid Valve Structurally normal tricuspid valve. Pulmonic Valve Pulmonic valve not well visualized. Pericardium No pericardial effusion. Aorta Normal size aortic root and proximal ascending aorta. IVC Inferior vena cava not visualized. CONCLUSIONS 1. Normal left ventricular size, systolic function and wall thickness, with no regional wall motion abnormalities. Left ventricular ejection fraction is estimated at 65 %. Grade II diastolic dysfunction, moderately elevated filling pressures. 2. No prior similar studies to compare. Radha Haynes MD (Electronically Signed) Final Date: 15 September 2022 09:19 S
[2022-09-13] MEDS: b-complex-vitamin c Tablet 1 EACH PO (08:49)
[2022-09-13] MEDS: donepezil 5 MG Tablet 10 MG PO (08:49)
[2022-09-13] MEDS: pantoprazole DR 40 mg Tablet PO (08:49)
[2022-09-13] MEDS: docusate sodium 100 mg Capsule PO ×2 (08:49→17:56)
[2022-09-13] MEDS: morphine ER (12 HR) 30 mg tablet PO ×2 (09:24→21:38)
[2022-09-13] MEDS: calcium carb-vit d 600mg/400unit 1 Tablet 1 EACH PO (09:24)
[2022-09-13] MEDS: duloxetine 20 mg Capsule PO (09:24)
[2022-09-13] MEDS: heparin 5,000 unit/mL INJ 1 mL 5000 UNIT SUBCUT ×2 (09:24→21:39)
[2022-09-13] MEDS: ziprasidone 20 mg/mL SDV 10 MG IM (10:06)
--- NOTE | 2022-09-13 10:40 | PC.NURSE ---
Event: Patient became agitated, yelling and combative with staff and family at bedside. Patient confused and pulled off Bipap, telemetry, and attempting to pill IV access and Ledezma catheter while getting out of bed. Multiple attempts by family and this nurse to verbally redirect patient. Patient increasingly confused and aggressive. Dr. Gee notified and verbal order received for Geodon, security notified and present in room. See MAR for administration on IM geodon. Patient began to calm with medication and verbal interventions, allowed family to place oxygen via NC. Dr. Gee to bedside to speak with patient and family.
[2022-09-13] MEDS: LORazepam 2 mg/mL INJ 1 mL 1 MG IVP (12:55)
[2022-09-13] MEDS: sodium chloride 0.9% 1,000 ML 60 ML IV (16:03)
--- NOTE | 2022-09-13 17:38 | PM.PN ---
Subjective Subjective: Patient was seen and examined this morning, shortness of breath is improved, she was extremely agitated this morning, not cooperating with BiPAP, received Geodon, which helped her to calm down. Medications: Medication Review Details: Generic Name Dose Route Start Last Admin Trade Name Jorgeq PRN Reason Stop Dose Admin Albuterol/Ipratrop ium 3 ml 09/13/22 08:00 09/13/22 16:03 Ipratropium-Albu terol 3 Ml Neb INHALATION 3 ml QID.RESPIRATORY S CH Administration Calcium Carbonate 1 each 09/13/22 09:00 09/13/22 09:24 Calcium Carb-Vit D 600mg/400unit 1 Tablet PO 1 each DAILY WILLIAMS Administration Docusate Sodium 100 mg 09/13/22 09:00 09/13/22 08:49 Docusate Sodium 100 Mg Capsule PO 100 mg BID WILLIAMS Administration Donepezil HCl 10 mg 09/13/22 09:00 09/13/22 08:49 Donepezil 5 Mg T ablet PO 10 mg DAILY WILLIAMS Administration Duloxetine HCl 20 mg 09/13/22 09:00 09/13/22 09:24 Duloxetine 20 Mg Capsule PO 20 mg DAILY WILLIAMS Administration Furosemide 20 mg 09/12/22 22:30 09/12/22 23:04 Furosemide 10 Mg /Ml Sdv 2ml IVP 20 mg Q24H WILLIAMS Administration Heparin Sodium (Po rcine) 5,000 unit 09/12/22 22:00 09/13/22 09:24 Heparin 5,000 Un it/Ml Inj 1 Ml SUBCUT 5,000 unit Q12H WILLIAMS Administration Ceftriaxone Sodium 1,000 mg/ 50 mls @ 100 mls/ hr 09/12/22 22:30 09/12/22 23:40 Sodium Chloride IV Infused Q24H WILLIAMS Infusion Protocol Azithromycin 500 m g/ Sodium 250 mls @ 250 mls /hr 09/12/22 23:00 09/13/22 00:30 Chloride IV Infused Q24H WILLIAMS Infusion Protocol Sodium Chloride 1,000 mls @ 60 ml s/hr 09/12/22 22:30 09/13/22 16:03 Sodium Chloride 0.9% IV 60 mls/hr .[id number] WILLIAMS Administration Lorazepam 1 mg 09/13/22 10:29 09/13/22 12:55 Lorazepam 2 Mg/M l Inj 1 Ml IVP 1 mg Q4H PRN Administration ANXIETY Morphine Sulfate 15 mg 09/12/22 22:06 09/13/22 01:20 Morphine Ir 15 M g Tablet PO 15 mg Q6H PRN Administration Pain Morphine Sulfate 30 mg 09/12/22 22:06 09/13/22 09:24 Morphine Er (12 Hr) 30 Mg Tablet PO 30 mg Q12H WILLIAMS Administration Multivitamins 1 each 09/13/22 09:00 09/13/22 08:49 K-Cftwjsp-Hnbszc n C Tablet PO 1 each DAILY WILLIAMS Administration Pantoprazole Sodiu m 40 mg 09/13/22 09:00 09/13/22 08:[address] 40 Mg Tablet PO 40 mg DAILY WILLIAMS Administration Vitals/I&O/Wt Last Vital Signs Temp 97.1 F L 09/13/22 00:00 Pulse 80 09/13/22 16:15 Resp 20 H 09/13/22 16:15 BP 111/66 09/13/22 16:15 Pulse Ox 90 09/13/22 16:15 O2 Del Method BiPAP 09/13/22 16:05 O2 Flow Rate 4 09/12/22 18:48 FiO2 45 09/13/22 16:06 09/13/22 09/13/22 09/13/22 06:59 14:59 22:59 Intake Total 350 / 350 320 / 320 1000 / 1320 Output Total 1999 / 1999 Balance -1650 / -1650 320 / 320 1000 / 1320 Weight last 48 hrs Weight 73.028 kg Physical Exam HENMT: COMMON NORMALS: normocephalic and atraumatic HEAD & SCALP: normocephalic and atraumatic Resp: OTHER: Diminished air entry bilaterally Cardio: COMMON NORMALS: regular rate, regular rhythm, S1 normal heart sound present, S2 normal heart sound present, No gallops present (Cardio), No murmurs present (Cardio), No rub (Cardio) and Peripheral pulses 2+ throughout RATE: regular rate RHYTHM: regular rhythm HEART SOUNDS: S1 normal heart sound present and S2 normal heart sound present PERIPHERAL PULSES: Peripheral pulses 2+ throughout GI: COMMON NORMALS: Normal to inspection, nondistended, normoactive bowel sounds present, Soft to palpation, non-tender, No hepatosplenomegaly present and no masses AUSCULTATION: Yes normoactive bowel sounds PALPATION: Yes Soft to palpation and Yes No hepatosplenomegaly present RECTAL EXAM: deferred Extremity: COMMON NORMALS: no clubbing, cyanosis or edema and no pedal edema Urinary Catheter Management: Ledezma: Cath Placed During This Visit: yes Reason for Continuing Indwelling Catheter: Accurate Measurement of Urinary Output in Critically Ill Patients Urinary Catheter Date of Insertion: 09/12/22 Urinary Catheter Time of Insertion: 21:00 Data 09/13/22 03:08 09/13/22 03:08 Micro: Microbiology 09/12/22 18:53 Blood Culture - Preliminary Blood SPECIMEN COLLECTED 09/12/22 18:49 Blood Culture - Preliminary Blood SPECIMEN COLLECTED A&P Assessment and plan (1) Respiratory failure: (2) Pulmonary edema: (3) Acute exacerbation of chronic obstructive pulmonary disease: (4) Acute renal failure: Plan 81-year-old female with history of end-stage COPD ,chronic hypoxic hypercarbic respiratory failure on mechanical vent at home presented with severe hypoxia and hypercarbia likely secondary to acute on chronic hypoxic hypercarbic respiratory failure due to pneumonia versus pulmonary edema versus acute exacerbation of COPD Will give IV ceftriaxone 1 g daily IV azithromycin 500 mg daily DuoNebs every 6 hours Continue BiPAP for now Follow blood cultures Monitor ABG as needed Monitor x-ray chest as needed Elevated BNP likely due to congestive heart failure and pulmonary edema Will monitor for now 2D echo Currently on Lasix 20 IV daily Acute renal failure, last creatinine was 0.9 from 01/16. Will give IV fluids normal saline at 60 mL/h Resume home medications DVT prophylaxis with's subcutaneous heparin She is comfort measures only as per the family. Attestations Medical Necessity Statement*: Patient is still in hospital for management of respiratory failure. Coding Level of Care Code Acute Code for [facility] Fwd Diagnoses Respiratory failure J96.90 Pulmonary edema J81.1 Acute exacerbation of chronic obstructive pulmonary disease J44.1 Acute renal failure N17.9
[2022-09-13] MEDS: cefTRIAXone 1,000 MG in sodium chloride 0.9% (plus) 50 ML 50 MG IV (21:38)
[2022-09-13] MEDS: mirtazapine 15 mg Tablet PO (21:38)
[2022-09-13] MEDS: FUROsemide 10 mg/mL SDV 2mL 20 MG IVP (21:39)
[2022-09-13] MEDS: azithromycin 500 MG in sodium chloride 0.9% 250 ML 250 MG IV (22:39)
[2022-09-14] VITALS (84 sets, daily range): BP systolic 96–164; BP diastolic 58–103; PULSE 74–147; RESP 10–34; TEMP 32.1–37.1; O2SAT 88–96
[2022-09-14 03:08] LABS: Basophils # 0.1 10^3/uL (0.0-0.1); Basophils % 0.9 %; Eosinophils # 0.1 10^3/uL (0.0-0.8); Hematocrit 35.3 % (37.0-47.0); Hemoglobin 10.3 g/dL (11.5-15.3); Lymphocytes # 1.5 10^3/uL (0.8-4.8); Lymphocytes % 27.6 %; Mean Corpuscular HGB Conc 29.2 g/dL (30.0-36.0); Mean Corpuscular Hemoglobin 28.5 pg (28.0-34.0); Mean Corpuscular Volume 97.5 fl (81-99); Mean Platelet Volume 9.9 fL (7.4-10.4); Monocytes # 0.5 10^3/uL (0.2-0.9); Monocytes % 9.5 %; Neutrophils # 3.31 10^3/uL (1.8-7.7); Neutrophils % 59.5 %; Nucleated Red Blood Cells % 0 %; Platelet Count 248 10^3/cmm (130-400); Red Blood Count 3.62 10^6/uL (4.1-5.3); Red Cell Distribution Width 17.2 % (12.1-15.1); White Blood Count 5.6 10^3/uL (4.0-10.0)
[2022-09-14 03:20] LABS: D Dimer 1.38 ug/mIFEU (0-0.59)
[2022-09-14 03:26] LABS: Alanine Aminotransferase 8 U/L (0-33); Albumin Level 2.9 g/dL (3.5-5.2); Alkaline Phosphatase 86 U/L (35-105); Anion Gap 12.1 (5-19); Aspartate Amino Transferase 25 U/L (0-32); Blood Urea Nitrogen 19 mg/dL (8-23); Calcium 7.9 mg/dL (8.5-10.5); Carbon Dioxide 36 mmol/L (22-29); Chloride 100 mmol/L (98-107); Globulin 3.1 g/dL (1.3-4.6); Glucose 88 mg/dL (65-115); Osmolality Calculated 300 mOsm/kg (285-295); Potassium 4.1 mmol/L (3.5-5.1); Sodium 144 mmol/L (136-145); Total Bilirubin 0.2 mg/dL (0.15-1.2)
[2022-09-14] MEDS: ipratropium-albuterol 3 mL Neb INHALATION ×4 (07:49→19:43)
[2022-09-14] MEDS: polyethylene glycol 3350 Pkt 17 gm PO (08:03)
[2022-09-14] MEDS: docusate sodium 100 mg Capsule PO ×2 (08:08→17:40)
[2022-09-14] MEDS: calcium carb-vit d 600mg/400unit 1 Tablet 1 EACH PO (08:09)
[2022-09-14] MEDS: b-complex-vitamin c Tablet 1 EACH PO (08:09)
[2022-09-14] MEDS: duloxetine 20 mg Capsule PO (08:09)
[2022-09-14] MEDS: pantoprazole DR 40 mg Tablet PO (08:09)
[2022-09-14] MEDS: donepezil 5 MG Tablet 10 MG PO (08:09)
[2022-09-14] MEDS: sodium chloride 0.9% 1,000 ML 60 ML IV (08:10)
[2022-09-14] MEDS: heparin 5,000 unit/mL INJ 1 mL 5000 UNIT SUBCUT ×2 (10:02→21:03)
[2022-09-14] MEDS: morphine ER (12 HR) 30 mg tablet PO ×2 (10:02→21:02)
--- NOTE | 2022-09-14 18:26 | PC.NURSE ---
Family memner at [facility], approached nurse with concerns about patient being on NC through PT, bath, and evening meal. Patient to be back on bipap after meal. Family requesting ABG and insistent that intermittent confusion is due to, pure oxygen through her nose. and that patient has had oxygen saturation too high through out this shift. See documentation for levels. Education provided to family and patient, family resistant to education. Dr. Gee notified. Orders for urine analysis, CMP, CBC, and possible ABG in the morning.
[2022-09-14] MEDS: LORazepam 2 mg/mL INJ 1 mL 1 MG IVP ×2 (18:42→22:43)
--- NOTE | 2022-09-14 18:58 | P.PN_ITS ---
Subjective Subjective: Patient was seen and examined this morning, she has remained afebrile, currently she is requiring 4-5 L supplemental oxygen through nasal cannula when she is off BiPAP, patient worked well with physical therapy today, unfortunately she has shown some degree of intermittent confusion. Medications: Medication Review Details: Generic Name Dose Route Start Last Admin Trade Name Freq PRN Reason Stop Dose Admin Albuterol/Ipratrop ium 3 ml 09/13/22 08:00 09/14/22 15:08 Ipratropium-Albu terol 3 Ml Neb INHALATION 3 ml QID.RESPIRATORY S CH Administration Calcium Carbonate 1 each 09/13/22 09:00 09/14/22 08:09 Calcium Carb-Vit D 600mg/400unit 1 Tablet PO 1 each DAILY WILLIAMS Administration Docusate Sodium 100 mg 09/13/22 09:00 09/14/22 17:40 Docusate Sodium 100 Mg Capsule PO 100 mg BID WILLIAMS Administration Donepezil HCl 10 mg 09/13/22 09:00 09/14/22 08:09 Donepezil 5 Mg T ablet PO 10 mg DAILY WILLIAMS Administration Duloxetine HCl 20 mg 09/13/22 09:00 09/14/22 08:09 Duloxetine 20 Mg Capsule PO 20 mg DAILY WILLIAMS Administration Furosemide 20 mg 09/12/22 22:30 09/13/22 21:39 Furosemide 10 Mg /Ml Sdv 2ml IVP 20 mg Q24H WILLIAMS Administration Heparin Sodium (Po rcine) 5,000 unit 09/12/22 22:00 09/14/22 10:02 Heparin 5,000 Un it/Ml Inj 1 Ml SUBCUT 5,000 unit Q12H WILLIAMS Administration Ceftriaxone Sodium 1,000 mg/ 50 mls @ 100 mls/ hr 09/12/22 22:30 09/13/22 22:40 Sodium Chloride IV Infused Q24H WILLIAMS Infusion Protocol Azithromycin 500 m g/ Sodium 250 mls @ 250 mls /hr 09/12/22 23:00 09/13/22 23:45 Chloride IV Infused Q24H WILLIAMS Infusion Protocol Lorazepam 1 mg 09/13/22 10:29 09/14/22 18:42 Lorazepam 2 Mg/M l Inj 1 Ml IVP 1 mg Q4H PRN Administration ANXIETY Mirtazapine 15 mg 09/13/22 21:00 09/13/22 21:38 Mirtazapine 15 M g Tablet PO 15 mg BEDTIME WILLIAMS Administration Morphine Sulfate 15 mg 09/12/22 22:06 09/13/22 01:20 Morphine Ir 15 M g Tablet PO 15 mg Q6H PRN Administration Pain Morphine Sulfate 30 mg 09/12/22 22:06 09/14/22 10:02 Morphine Er (12 Hr) 30 Mg Tablet PO 30 mg Q12H WILLIAMS Administration Multivitamins 1 each 09/13/22 09:00 09/14/22 08:09 W-Gagaidx-Srvvce n C Tablet PO 1 each DAILY WILLIAMS Administration Pantoprazole Sodiu m 40 mg 09/13/22 09:00 09/14/22 08:[address] 40 Mg Tablet PO 40 mg DAILY WILLIAMS Administration Polyethylene Glyco l 17 gm 09/12/22 22:11 09/14/22 08:03 Polyethylene Gly col 3350 Pkt 17 Gm PO 17 gm DAILY PRN Administration Constipation Vitals/I&O/Wt Last Vital Signs Temp 98.7 F 09/14/22 16:30 Pulse 104 H 09/14/22 16:30 Resp 21 H 09/14/22 16:30 BP 122/92 09/14/22 16:30 Pulse Ox 93 09/14/22 16:30 O2 Del Method Nasal Cannula 09/14/22 16:30 O2 Flow Rate 5 09/14/22 16:30 FiO2 35 09/14/22 13:57 09/14/22 09/14/22 09/14/22 06:59 14:59 22:59 Intake Total 250 / 1630 1327 / 1327 200 / 1527 Output Total 1000 / 1075 350 / 350 Balance -750 / 555 1327 / 1327 -150 / 1177 Physical Exam HENMT: COMMON NORMALS: normocephalic and atraumatic HEAD & SCALP: normocep halic and atraumatic Resp: OTHER: Diminished air entry bilaterally Cardio: COMMON NORMALS: regular rate, regular rhythm, S1 normal heart sound present, S2 normal heart sound present, No gallops present (Cardio), No murmurs present (Cardio), No rub (Cardio) and Peripheral pulses 2+ throughout RATE: regular rate RHYTHM: regular rhythm HEART SOUNDS: S1 normal heart sound present and S2 normal heart sound present PERIPHERAL PULSES: Peripheral pulses 2+ throughout GI: COMMON NORMALS: Normal to inspection, nondistended, normoactive bowel sounds present, Soft to palpation, non-tender, No hepatosplenomegaly present and no masses AUSCULTATION: Yes normoactive bowel sounds PALPATION: Yes Soft to palpation and Yes No hepatosplenomegaly present RECTAL EXAM: deferred Extremity: COMMON NORMALS: no clubbing, cyanosis or edema and no pedal edema Urinary Catheter Management: Ledezma: Cath Placed During This Visit: yes Reason for Continuing Indwelling Catheter: Accurate Measurement of Urinary Output in Critically Ill Patients Urinary Catheter Date of Insertion: 09/12/22 Urinary Catheter Time of Insertion: 21:00 Data 09/14/22 02:31 09/14/22 02:31 Micro: Microbiology 09/12/22 18:53 Blood Culture - Preliminary Blood NEGATIVE TO DATE 09/12/22 18:49 Blood Culture - Preliminary Blood NEGATIVE TO DATE A&P Assessment and plan (1) Respiratory failure: (2) Pulmonary edema: (3) Acute exacerbation of chronic obstructive pulmonary disease: (4) Acute renal failure: Plan 81-year-old female with history of end-stage COPD ,chronic hypoxic hypercarbic respiratory failure on mechanical vent at home presented with severe hypoxia and hypercarbia likely secondary to acute on chronic hypoxic hypercarbic respiratory failure due to pneumonia versus pulmonary edema versus acute exacerbation of COPD Will give IV ceftriaxone 1 g daily IV azithromycin 500 mg daily DuoNebs every 6 hours Continue BiPAP for now Blood cultures:NTD Urinalysis: Monitor ABG as needed Monitor x-ray chest as needed Elevated BNP likely due to congestive heart failure and pulmonary edema Will monitor for now 2D echo : Currently on Lasix 20 IV daily Acute renal failure, last creatinine was 0.9 from 01/16. Currently resolved serum creatinine more or less at baseline Was on IV fluids normal saline at 60 mL/h Monitor BMP Avoid nephrotoxic's Monitor intake output charting Resume home medications DVT prophylaxis with's subcutaneous heparin She is comfort measures only as per the family. Attestations Medical Necessity Statement*: Needs to be in hospital for management of pneumonia. Coding Level of Care Code Acute Code for [facility] Fwd Diagnoses Respiratory failure J96.90 Pulmonary edema J81.1 Acute exacerbation of chronic obstructive pulmonary disease J44.1 Acute renal failure N17.9
[2022-09-14 19:31] LABS: Glucose Urine UA Norm (Normal); Ketones Urine 1+ (Negative); Protein Urine Trace (Negative); Urine Appearance Clear (CLEAR); Urine Color Yellow (Yellow); pH Urine 7 (5-7)
[2022-09-14 19:32] LABS: Add Urine Culture? No; Add Urine Microscopic? YES; Bilirubin Urine 1+ (Negative); Blood Urine 2+ (Negative); Leukocyte Esterase Urine 2+ (Negative); Nitrate Urine Negative (Negative); RBC Urine 0-4 /hpf (0-2); Squamous Epithelial Cell Urine 0-4 /hpf (0-5); Urobilinogen Urine 1 mg/dL (Negative)
[2022-09-14] MEDS: FUROsemide 10 mg/mL SDV 2mL 20 MG IVP ×2 (19:46→23:50)
[2022-09-14 20:11] LABS: ABG PCO2 59.4 mmHg (35-45); ABG PH Result 7.42 (7.35-7.45); Alveolar-Arterial Oxygen Gradi 14.7 mmHg (5-10); Arterial Blood Gas Hematocrit 37.4 % (37-47); Base Excess ABG 11.9 mmol/L (-2.0-2.0); Blood Gas Allen Test Pos; Blood Gas Sample Site Radial, left; Blood Gas Sample Type Arterial; Carboxyhemoglobin 0.9 %THgb (0.4-20.1); HCO3 ABG 38.6 mmol/L (22-26); HGB O2 Sat 93.8 % (95-100); Ionized Calcium Level - ABG 1.2 mmol/L (1.1-1.4); Methemoglobin < 0.0 % (0.4-1.5); Oxygen Device BIPAP; Oxygen Saturation ABG 92.9; PO2 ABG 63.9 mmHg (80.0-100.0); Potassium Level - ABG 4.1 mmol/L (3.5-5.0); Total Hemoglobin 12.2 g/dL (12-16)
[2022-09-14] MEDS: mirtazapine 15 mg Tablet PO (21:02)
[2022-09-14] MEDS: cefTRIAXone 1,000 MG in sodium chloride 0.9% (plus) 50 ML 50 MG IV (21:26)
[2022-09-14] MEDS: azithromycin 500 MG in sodium chloride 0.9% 250 ML 250 MG IV (22:51)
[2022-09-15] VITALS (36 sets, daily range): BP systolic 106–136; BP diastolic 63–95; PULSE 77–102; RESP 11–25; TEMP 36.2–37; O2SAT 87–95
[2022-09-15] MEDS: LORazepam 2 mg/mL INJ 1 mL 1 MG IVP (02:58)
[2022-09-15 03:14] LABS: Basophils # 0.1 10^3/uL (0.0-0.1); Basophils % 0.7 %; Eosinophils # 0.2 10^3/uL (0.0-0.8); Eosinophils % 2.5 %; Hematocrit 41.3 % (37.0-47.0); Hemoglobin 12.2 g/dL (11.5-15.3); Lymphocytes # 1.7 10^3/uL (0.8-4.8); Lymphocytes % 22.8 %; Mean Corpuscular HGB Conc 29.5 g/dL (30.0-36.0); Mean Corpuscular Hemoglobin 28.5 pg (28.0-34.0); Mean Corpuscular Volume 96.5 fl (81-99); Mean Platelet Volume 10.1 fL (7.4-10.4); Monocytes # 0.7 10^3/uL (0.2-0.9); Monocytes % 9.8 %; Neutrophils # 4.68 10^3/uL (1.8-7.7); Neutrophils % 63.9 %; Nucleated Red Blood Cells % 0 %; Platelet Count 271 10^3/cmm (130-400); Red Blood Count 4.28 10^6/uL (4.1-5.3); White Blood Count 7.3 10^3/uL (4.0-10.0)
[2022-09-15 03:38] LABS: Alanine Aminotransferase 9 U/L (0-33); Albumin Level 3.1 g/dL (3.5-5.2); Alkaline Phosphatase 97 U/L (35-105); Aspartate Amino Transferase 25 U/L (0-32); Blood Urea Nitrogen 17 mg/dL (8-23); Calcium 8.8 mg/dL (8.5-10.5); Carbon Dioxide 40 mmol/L (22-29); Chloride 93 mmol/L (98-107); Globulin 3.5 g/dL (1.3-4.6); Glucose 91 mg/dL (65-115); Osmolality Calculated 291 mOsm/kg (285-295); Sodium 140 mmol/L (136-145); Total Bilirubin 0.3 mg/dL (0.15-1.2); Total Protein 6.6 g/dL (6.6-8.7)
[2022-09-15 03:49] LABS: Anion Gap 11.2 (5-19); Potassium 4.2 mmol/L (3.5-5.1)
[2022-09-15] MEDS: ipratropium-albuterol 3 mL Neb INHALATION ×4 (08:00→19:57)
--- NOTE | 2022-09-15 09:13 | PC.SOCIAL ---
IMM update IMM updated with patient. Verbalized an understanding. Copy Pg 2 provided. Initialled, dated, timed, and placed in chart.
[2022-09-15] MEDS: pantoprazole DR 40 mg Tablet PO (09:39)
[2022-09-15] MEDS: docusate sodium 100 mg Capsule PO ×2 (09:39→17:36)
[2022-09-15] MEDS: b-complex-vitamin c Tablet 1 EACH PO (09:39)
[2022-09-15] MEDS: morphine ER (12 HR) 30 mg tablet PO ×2 (09:39→21:05)
[2022-09-15] MEDS: calcium carb-vit d 600mg/400unit 1 Tablet 1 EACH PO (09:40)
[2022-09-15] MEDS: donepezil 5 MG Tablet 10 MG PO (09:40)
[2022-09-15] MEDS: duloxetine 20 mg Capsule PO (09:40)
[2022-09-15] MEDS: heparin 5,000 unit/mL INJ 1 mL 5000 UNIT SUBCUT ×2 (09:40→21:04)
--- NOTE | 2022-09-15 11:58 | PC.OT ---
ATEMPTED EVAL; DIFFICULT TO AROUSE AND MAINTAIN AROUSAL. WILL ATTEMPT AT LATER TIME OR DATE.
[2022-09-15] MEDS: morphine IR 15 mg Tablet PO (12:55)
--- NOTE | 2022-09-15 16:14 | PC.OT ---
OT EVALUATION ATTEMPTED AGAIN THIS P.M. PER DAUGHTER, THE PATIENT HAS HAD ATIVAN AND IS NOT AROUSABLE AT THIS TIME. PATIENT CONTINUES TO SLEEP WITH CONVERSATION BETWEEN THERAPIST AND DAUGHTER. WILL ATTEMPT AGAIN AT A LATER TIME.
--- NOTE | 2022-09-15 17:24 | CTR_ITS ---
PROCEDURE INFORMATION: Exam: CTA Chest With Contrast Exam date and time: 09/15/2022 5:58 PM Age: 81 years old Clinical indication: Shortness of breath; Additional info: Rule out pe TECHNIQUE: Imaging protocol: Computed tomographic angiography of the chest with contrast. Exam focused on the arteries. 3D rendering (Not supervised by radiologist): MIP and/or 3D reconstructed images were created by the technologist. Radiation optimization: All CT scans at this facility use at least one of these dose optimization techniques: automated exposure control; mA and/or kV adjustment per patient size (includes targeted exams where dose is matched to clinical indication); or iterative reconstruction. Contrast material: OMNI 350; Contrast volume: 100 ml; Contrast route: INTRAVENOUS (IV); REPORTING DATA: Count of CT and Cardiac NM exams in prior 12 months: This patient has received [address] and 0 known cardiac nuclear medicine studies in the 12 months prior to the current study. COMPARISON: CR (CHEST, ) 09/12/2022 6:54 PM RADIATION DOSE METRICS: Total DLP (mGy-cm): 347 FINDINGS: Pulmonary arteries: Pulmonary vasculature is adequately opacified without filling defects or other evidence of acute pulmonary embolism. Aorta: Unremarkable. No aortic aneurysm. No aortic dissection. Lungs: Lung volumes are mildly decreased. Skin scattered atelectatic changes at the lung bases bilaterally. Indistinct subpleural ground-glass opacities abutting the major fissures bilaterally that may be due to transient hypoventilatory changes. Few tiny subpleural nodules measuring up to 2 mm. Mild upper lobe emphysematous changes. chronic granulomatous calcifications within the mediastinum, chronic. Pleural spaces: Unremarkable. No pneumothorax. No pleural effusion. Heart: Heart is enlarged. Mild calcification of coronary arteries. No significant pericardial effusion. Lymph nodes: Mild mediastinal lymphadenopathy with multiple small and borderline enlarged lymph nodes, nonspecific. Bones/joints: Unremarkable. No acute fracture. Soft tissues: See Lungs finding. CT/CT angio chest PE protcl [id number] IMPRESSION: 1. Negative CT angiogram of the chest. No evidence of acute pulmonary embolism. 2. Significantly decreased lung volumes with bibasilar atelectasis and scattered hypoventilatory lung changes. 3. Moderate cardiomegaly. 4. Mild mediastinal lymphadenopathy, nonspecific. Consider repeat CT chest in 6 months for continued surveillance.
[2022-09-15] MEDS: cyclobenzaprine 10 mg Tablet 5 MG PO (17:36)
--- NOTE | 2022-09-15 17:36 | PM.PN ---
Subjective Subjective: Patient was seen and examined this morning, robust urine output with Lasix last night, currently she has consistently required 4 to 5 L oxygen through the nasal cannula, as well as has been compliant with BiPAP. ABG was done last evening results have been reviewed. 2D echo results appreciated. Medications: Medication Review Details: Generic Name Dose Route Start Last Admin Trade Name Freq PRN Reason Stop Dose Admin Albuterol/Ipratrop ium 3 ml 09/13/22 08:00 09/15/22 15:42 Ipratropium-Albu terol 3 Ml Neb INHALATION 3 ml QID.RESPIRATORY S CH Administration Calcium Carbonate 1 each 09/13/22 09:00 09/15/22 09:40 Calcium Carb-Vit D 600mg/400unit 1 Tablet PO 1 each DAILY WILLIAMS Administration Docusate Sodium 100 mg 09/13/22 09:00 09/15/22 09:39 Docusate Sodium 100 Mg Capsule PO 100 mg BID WILLIAMS Administration Donepezil HCl 10 mg 09/13/22 09:00 09/15/22 09:40 Donepezil 5 Mg T ablet PO 10 mg DAILY WILLIAMS Administration Duloxetine HCl 20 mg 09/13/22 09:00 09/15/22 09:40 Duloxetine 20 Mg Capsule PO 20 mg DAILY WILLIAMS Administration Furosemide 20 mg 09/12/22 22:30 09/14/22 23:50 Furosemide 10 Mg /Ml Sdv 2ml IVP 20 mg Q24H WILLIAMS Administration Heparin Sodium (Po rcine) 5,000 unit 09/12/22 22:00 09/15/22 09:40 Heparin 5,000 Un it/Ml Inj 1 Ml SUBCUT 5,000 unit Q12H WILLIAMS Administration Ceftriaxone Sodium 1,000 mg/ 50 mls @ 100 mls/ hr 09/12/22 22:30 09/14/22 22:44 Sodium Chloride IV Infused Q24H WILLIAMS Infusion Protocol Azithromycin 500 m g/ Sodium 250 mls @ 250 mls /hr 09/12/22 23:00 09/14/22 23:59 Chloride IV Infused Q24H WILLIAMS Infusion Protocol Lorazepam 1 mg 09/13/22 10:29 09/15/22 02:58 Lorazepam 2 Mg/M l Inj 1 Ml IVP 1 mg Q4H PRN Administration ANXIETY Mirtazapine 15 mg 09/13/22 21:00 09/14/22 21:02 Mirtazapine 15 M g Tablet PO 15 mg BEDTIME WILLIAMS Administration Morphine Sulfate 15 mg 09/12/22 22:06 09/15/22 12:55 Morphine Ir 15 M g Tablet PO 15 mg Q6H PRN Administration Pain Morphine Sulfate 30 mg 09/12/22 22:06 09/15/22 09:39 Morphine Er (12 Hr) 30 Mg Tablet PO 30 mg Q12H WILLIAMS Administration Multivitamins 1 each 09/13/22 09:00 09/15/22 09:39 S-Atcjtat-Mbnhkt n C Tablet PO 1 each DAILY WILLIAMS Administration Pantoprazole Sodiu m 40 mg 09/13/22 09:00 09/15/22 09:[address] 40 Mg Tablet PO 40 mg DAILY WILLIAMS Administration Polyethylene Glyco l 17 gm 09/12/22 22:11 09/14/22 08:03 Polyethylene Gly col 3350 Pkt 17 Gm PO 17 gm DAILY PRN Administration Constipation Vitals/I&O/Wt Last Vital Signs Temp 98.2 F 09/15/22 12:00 Pulse 98 09/15/22 16:00 Resp 15 09/15/22 16:00 BP 125/85 09/15/22 16:00 Pulse Ox 90 09/15/22 16:00 O2 Del Method BiPAP 09/15/22 16:00 O2 Flow Rate 4 09/15/22 13:00 FiO2 35 09/15/22 16:00 09/15/22 09/15/22 09/15/22 06:59 14:59 22:59 Intake Total 360 / 2987 150 / 150 Output Total 2100 / 3800 850 / 850 Balance -1740 / -813 -700 / -700 Physical Exam HENMT: COMMON NORMALS: normocephalic and atraumatic HEAD & SCALP: normocephalic and atraumatic Resp: OTHER: Diminished air entry bilaterally Cardio: COMMON NORMALS: regular rate, regular rhythm, S1 normal heart sound present, S2 normal heart sound present, No gallops present (Cardio), No murmurs present (Cardio), No rub (Cardio) and Peripheral pulses 2+ throughout RATE: regular rate RHYTHM: regular rhythm HEART SOUNDS: S1 normal heart sound present and S2 normal heart sound present PERIPHERAL PULSES: Peripheral pulses 2+ throughout GI: COMMON NORMALS: Normal to inspection, nondistended, normoactive bowel sounds present, Soft to palpation, non-tender, No hepatosplenomegaly present and no masses AUSCULTATION: Yes normoactive bowel sounds PALPATION: Yes Soft to palpation and Yes No hepatosplenomegaly present RECTAL EXAM: deferred Extremity: COMMON NORMALS: no clubbing, cyanosis or edema and no pedal edema Urinary Catheter Management: Ledezma: Cath Placed During This Visit: yes Reason for Continuing Indwelling Catheter: Accurate Measurement of Urinary Output in Critically Ill Patients Urinary Catheter Date of Insertion: 09/12/22 Urinary Catheter Time of Insertion: 21:00 Data 09/15/22 02:48 09/15/22 02:48 A&P Assessment and plan (1) Respiratory failure: (2) Pulmonary edema: (3) Acute exacerbation of chronic obstructive pulmonary disease: (4) Acute renal failure: Plan 81-year-old female with history of end-stage COPD ,chronic hypoxic hypercarbic respiratory failure on mechanical vent at home presented with severe hypoxia and hypercarbia likely secondary to acute on chronic hypoxic hypercarbic respiratory failure due to pneumonia versus pulmonary edema versus acute exacerbation of COPD Blood cultures:NTD CTA chest with PE protocol: As the patient continued to have decent desaturation, and she was continued to required 5 to 6 L oxygen. Continue ceftriaxone 1 g daily azithromycin 500 mg daily DuoNebs every 6 hours Dexamethasone 6 mg IV daily Continue BiPAP for now Monitor ABG as needed Monitor x-ray chest as needed Decompensated heart failure with preserved ejection fraction. Elevated proBNP, x-ray chest suggestive of pulmonary vascular congestion. 2D echo : Showed normal LV size and systolic function, no RWMA, LVEF 65%, grade 2 diastolic dysfunction. Monitor intake output charting Daily weight Monitor electrolytes Continue Lasix 20 IV daily Acute renal failure, last creatinine was 0.9 from 01/16. Currently resolved serum creatinine more or less at baseline Was on IV fluids normal saline at 60 mL/h Monitor BMP Avoid nephrotoxic's Monitor intake output charting Possible UTI: Urine leukocyte esterase 2+, urine WBC 10-15, though her urine nitrate is negative, urine bacteria none. Continue Rocephin for now Resume home medications DVT prophylaxis with's subcutaneous heparin She is comfort measures only as per the family. Attestations Medical Necessity Statement*: Needs to be in hospital for management of respiratory failure Coding Level of Care Code Acute Code for [facility] Diagnoses Respiratory failure J96.90 Pulmonary edema J81.1 Acute exacerbation of chronic obstructive pulmonary disease J44.1 Acute renal failure N17.9
--- NOTE | 2022-09-15 17:55 | PC.NURSE ---
Pt to CT
--- NOTE | 2022-09-15 19:08 | PC.NURSE ---
Shift summary: Pt was drowsy most of the day. When awake she was pleasant and able to follow directions. She slept through breakfast. She did get up to chair for lunch and dinner. She did eat an adequate amount. She has been complaining of neck pain today. She received PRN MS as well as the scheduled dose. No Ativan necessary today. She did receive 5mg dose of Flexeril for her neck. She went for a CTA this evening Her O2 has been 3-5 lpm/Nasal cannula OR Bipap at 35% while she rested with eyes closed. 1300ml urine output noted this shift. Fltaulence noted, no BM noted. Family has been at bedside off and on throughout the shift.
[2022-09-15] MEDS: budesonide 0.5 mg/2 mL Neb INHALATION (19:57)
[2022-09-15] MEDS: dexamethasone 10 mg/mL INJ IVP (21:04)
[2022-09-15] MEDS: mirtazapine 15 mg Tablet PO (21:05)
[2022-09-15] MEDS: cefTRIAXone 1,000 MG in sodium chloride 0.9% (plus) 50 ML 50 MG IV (22:58)
[2022-09-15] MEDS: FUROsemide 10 mg/mL SDV 2mL 20 MG IVP (22:58)
[2022-09-15] MEDS: azithromycin 500 MG in sodium chloride 0.9% 250 ML 250 MG IV (22:58)
[2022-09-16] VITALS (13 sets, daily range): BP systolic 101–126; BP diastolic 61–81; PULSE 74–91; RESP 14–23; O2SAT 91–93
[2022-09-16 03:10] LABS: Basophils % 0.3 %; Lymphocytes # 0.4 10^3/uL (0.8-4.8); Lymphocytes % 4.8 %; Mean Corpuscular HGB Conc 30.2 g/dL (30.0-36.0); Mean Corpuscular Hemoglobin 28.4 pg (28.0-34.0); Mean Corpuscular Volume 93.9 fl (81-99); Monocytes # 0.1 10^3/uL (0.2-0.9); Monocytes % 1.1 %; Neutrophils # 7.02 10^3/uL (1.8-7.7); Neutrophils % 93.4 %; Nucleated Red Blood Cells % 0 %; Platelet Count 287 10^3/cmm (130-400); Red Blood Count 4.58 10^6/uL (4.1-5.3); Red Cell Distribution Width 16.7 % (12.1-15.1); White Blood Count 7.5 10^3/uL (4.0-10.0)
[2022-09-16 03:38] LABS: Alanine Aminotransferase 11 U/L (0-33); Albumin Level 3.4 g/dL (3.5-5.2); Alkaline Phosphatase 97 U/L (35-105); Anion Gap 13.5 (5-19); Aspartate Amino Transferase 21 U/L (0-32); Blood Urea Nitrogen 16 mg/dL (8-23); Calcium 9.1 mg/dL (8.5-10.5); Carbon Dioxide 35 mmol/L (22-29); Chloride 95 mmol/L (98-107); Creatinine Clr Calc Pharmacy 44.3162; Globulin 3.9 g/dL (1.3-4.6); Glucose 151 mg/dL (65-115); Osmolality Calculated 292 mOsm/kg (285-295); Potassium 4.5 mmol/L (3.5-5.1); Sodium 139 mmol/L (136-145); Total Bilirubin 0.3 mg/dL (0.15-1.2); Total Protein 7.3 g/dL (6.6-8.7)
[2022-09-16] MEDS: budesonide 0.5 mg/2 mL Neb INHALATION (07:46)
[2022-09-16] MEDS: ipratropium-albuterol 3 mL Neb INHALATION (07:46)
[2022-09-16] MEDS: docusate sodium 100 mg Capsule PO (09:11)
[2022-09-16] MEDS: donepezil 5 MG Tablet 10 MG PO (09:11)
[2022-09-16] MEDS: calcium carb-vit d 600mg/400unit 1 Tablet 1 EACH PO (09:11)
[2022-09-16] MEDS: dexamethasone 10 mg/mL INJ IVP (09:11)
[2022-09-16] MEDS: pantoprazole DR 40 mg Tablet PO (09:12)
[2022-09-16] MEDS: heparin 5,000 unit/mL INJ 1 mL 5000 UNIT SUBCUT (09:12)
[2022-09-16] MEDS: duloxetine 20 mg Capsule PO (09:12)
[2022-09-16] MEDS: morphine ER (12 HR) 30 mg tablet PO (09:12)
--- NOTE | 2022-09-16 09:24 | P.DS_ITS ---
Discharge Providers Date of Admission: 09/12/22 20:49 Date of Discharge: September 16, 2022 Attending Provider at Admission: Emperatriz Lee MD Attending Provider at Discharge: Jamie Gee MD Primary Care Provider: Naomi Lyn MD Diagnoses at Discharge Discharge Diagnosis (1) Respiratory failure: Status: Acute (2) Pulmonary edema: Status: Acute (3) Acute exacerbation of chronic obstructive pulmonary disease: Status: Acute (4) Acute renal failure: Status: Acute Reason for Visit Reason for Visit: SOB Hospital Course Hospital Course HPI: Emperatriz Lee MD Jaye Jarquin is a 81 year old female with history of end-stage COPD, chronic hypoxic hypercarbic respiratory failure dementia anxiety depression was brought in by family with complaint of low oxygen saturation and discoloration of the skin.? As per the daughter she was lying in bed when she noticed bluish discoloration of her face and her oxygen saturation went down to 44% on room air.? She usually uses a portable vent at home for her respiratory failure ,her usual oxygen saturations are 84 to 91%.? She uses the vent at night and daytime when she is resting.? There is a history of loss of appetite for last 2 days but no fever increased cough nausea vomiting urinary or bowel complaints.? No history of sick contact present. In the ER ABG showed PCO2 71 PO2 62 saturation 86% on 4 L nasal cannula.? She was started on BiPAP given dexamethasone and nebulizer treatments she is saturating 92% on BiPAP currently.? Her BNP was found to be 24 747 Hospital course: Patient was admitted for the management of acute on chronic hypoxic hypercapnic respiratory failure Likely secondary to decompensated heart failure with preserved ejection fraction, possible pneumonia, She was kept on ceftriaxone and Rocephin DuoNebsN, cautious IV diuresis ,pulmonary toilet, BiPAP, supplemental oxygen as needed, ABG monitored, blood cultures were negative, CTA chest done during the hospital stay: Showed no pulmonary embolism, ?Significantly decreased lung volumes with bibasilar atelectasis and scattered hypoventilatory lung changes. Mild mediastinal lymp hadenopathy, nonspecific, 2D echo done during the hospital stay showed: Showed normal LV size and systolic function, no RWMA, LVEF 65%, grade 2 diastolic dysfunction. During the hospital stay she was also managed for, HECTOR on CKD: SHe was kept initially on gentle IV hydration as she appears to be intravascularly dry, serum creatinine at the time of discharge has normalized, during the hospital stay patient was also managed for possible UTI,, she was on antibiotics. Overall patient responded well to medical management At the time of discharge she was requiring 5ls supplemental oxygen, given her overall physical deconditioning, patient was discharged to short-term rehab for further recovery. She will follow PCP as well as pulmonary as outpatient. Physical Exam HENMT: COMMON NORMALS: normocephalic and atraumatic HEAD & SCALP: normoceph alic and atraumatic Resp: OTHER: Diminished air entry bilaterally Cardio: COMMON NORMALS: regular rate, regular rhythm, S1 normal heart sound present, S2 normal heart sound present, No gallops present (Cardio), No murmurs present (Cardio), No rub (Cardio) and Peripheral pulses 2+ throughout RATE: regular rate RHYTHM: regular rhythm HEART SOUNDS: S1 normal heart sound present and S2 normal heart sound present PERIPHERAL PULSES: Peripheral pulses 2+ throughout GI: COMMON NORMALS: Normal to inspection, nondistended, normoactive bowel sounds present, Soft to palpation, non-tender, No hepatosplenomegaly present and no masses AUSCULTATION: Yes normoactive bowel sounds PALPATION: Yes Soft to palpation and Yes No hepatosplenomegaly present RECTAL EXAM: deferred Extremity: COMMON NORMALS: no clubbing, cyanosis or edema and no pedal edema Urinary Catheter Management: Ledezma: Cath Placed During This Visit: yes Reason for Continuing Indwelling Catheter: Accurate Measurement of Urinary Output in Critically Ill Patients Urinary Catheter Date of Insertion: 09/12/22 Urinary Catheter Time of Insertion: 21:00 Discharge Data Studies Completed and Pending Completed Studies During Hospitalization Category Date Time Status CTA chest [CT angio chest PE protcl [id number]] Routine Cat Scan 09/15/22 17:24 Completed XR chest 1V portable [id number] Stat Exams 09/12/22 18:29 Completed CV. echo complete* [id number] Routine Ultrasound 09/13/22 08:18 Completed Pending at discharge Category Date Time Status Blood Culture Stat Lab 09/12/22 18:53 Results CBC Auto Diff [Complete Blood Count w/Auto] AM LABS Lab 09/17/22 04:00 Ordered CMP [Comprehensive Metabolic Panel] AM LABS Lab 09/17/22 04:00 Ordered Radiology Impressions Chest X-Ray 09/12/22 18:29 IMPRESSION: 1. Interval small right pleural effusion and adjacent atelectasis. Superimposed infection can not be excluded. Minimal left pleural effusion can not be excluded. 2. Low lung volumes and bronchovascular crowding. Subtle increased interstitial opacities may represent subtle pulmonary edema. Atypical infection can give a similar appearance. Chest CTA 09/15/22 17:24 IMPRESSION: 1. Negative CT angiogram of the chest. No evidence of acute pulmonary embolism. 2. Significantly decreased lung volumes with bibasilar atelectasis and scattered hypoventilatory lung changes. 3. Moderate cardiomegaly. 4. Mild mediastinal lymphadenopathy, nonspecific. Consider repeat CT chest in 6 months for continued surveillance. Laboratory Results WBC 7.5 10^3/uL (4.0-10.0) 09/16/22 02: RBC 4.58 10^6/uL (4.1-5.3) 09/16/22 02:22 Hgb 13.0 g/dL (11.5-15.3) 09/16/22 02: Hct 43.0 % (37.0-47.0) 09/16/22 02:22 MCV 93.9 fl (81-99) 09/16/22 02: MCH 28.4 pg (28.0-34.0) 09/16/22 02: MCHC 30.2 g/dL (30.0-36.0) 09/16/22 02: RDW 16.7 % (12.1-15.1) H 09/16/22 02:22 Plt Count 287 10^3/cmm (130-400) 09/16/22 02: MPV 10.0 fL (7.4-10.4) 09/16/22 02: Neut % (Auto) 93.4 % 09/16/22 02: Lymph % (Auto) 4.8 % 09/16/22 02: Sandoval % (Auto) 1.1 % 09/16/22 02: Eos % (Auto) 0.0 % 09/16/22 02: Baso % (Auto) 0.3 % 09/16/22 02: Neut # (Auto) 7.02 10^3/uL (1.8-7.7) 09/16/22 02:22 Lymph # (Auto) 0.4 10^3/uL (0.8-4.8) L 09/16/22 02:22 Sandoval # (Auto) 0.1 10^3/uL (0.2-0.9) L 09/16/22 02:22 Eos # (Auto) 0.0 10^3/uL (0.0-0.8) 09/16/22 02:22 Baso # (Auto) 0.0 10^3/uL (0.0-0.1) 09/16/22 02:22 Nucleated RBC % (auto) 0 % 09/16/22 02:22 Nucleated RBCs # 0.0 /100WBC 09/16/22 02:22 D-Dimer 1.38 ug/mIFEU (0-0.59) H 09/14/22 02:31 Specimen Type Arterial 09/14/22 19:07 Sample Site Radial, left 09/14/22 19:07 ABG pH 7.42 (7.35-7.45) 09/14/22 19:07 ABG pCO2 59.4 mmHg (35-45) H 09/14/22 19:07 ABG pO2 63.9 mmHg (80.0-100.0) L 09/14/22 19:07 ABG HCO3 38.6 mmol/L (22-26) H 09/14/22 19:07 ABG O2 Saturation 92.9 09/14/22 19:07 ABG Base Excess 11.9 mmol/L (-2.0-2.0) H 09/14/22 19:07 Pj Test Pos 09/14/22 19:07 A-a O2 Gradient 14.7 mmHg (5-10) H 09/14/22 19:07 Hematocrit 37.4 % (37-47) 09/14/22 19:07 Hgb O2 Saturation 93.8 % (95-100) L 09/14/22 19:07 Carboxyhemoglobin 0.9 %THgb (0.4-20.1) 09/14/22 19:07 Methemoglobin < 0.0 % (0.4-1.5) L 09/14/22 19:07 Total Hemoglobin 12.2 g/dL (12-16) 09/14/22 19:07 Sodium 140.0 mmol/L (131-143) 09/14/22 19:07 Potassium 4.1 mmol/L (3.5-5.0) 09/14/22 19:07 Glucose 114.0 mg/dL (70-115) 09/14/22 19:07 Ionized Calcium 1.2 mmol/L (1.1-1.4) 09/14/22 19:07 O2 Delivery Device Bipap 09/14/22 19:07 O2 Liters/Min 4.0 % 09/12/22 18:31 FiO2 35.0 % 09/14/22 19:07 Road Gang Supervisor ID [email or web address] 09/14/22 19:07 Sodium 139 mmol/L (136-145) 09/16/22 02:22 Potassium 4.5 mmol/L (3.5-5.1) 09/16/22 02:22 Chloride 95 mmol/L (98-107) L 09/16/22 02:22 Carbon Dioxide 35 mmol/L (22-29) H 09/16/22 02:22 Anion Gap 13.5 (5-19) 09/16/22 02:22 BUN 16 mg/dL (8-23) 09/16/22 02:22 Creatinine 0.9 mg/dL (0.5-0.9) 09/16/22 02:22 GFR Calculation Not Reportable 09/16/22 02:22 Glucose 151 mg/dL (65-115) H 09/16/22 02:22 Calculated Osmolality 292 mOsm/kg (285-295) 09/16/22 02:22 Lactic Acid 1.3 mmol/L (0.5-2.2) 09/12/22 18:49 Calcium 9.1 mg/dL (8.5-10.5) 09/16/22 02:22 Phosphorus 3.4 mg/dL (2.5-4.5) 09/13/22 03:08 Magnesium 1.5 mg/dL (1.7-2.3) L 09/13/22 03:08 Total Bilirubin 0.3 mg/dL (0.15-1.2) 09/16/22 02:22 AST 21 U/L (0-32) 09/16/22 02:22 ALT 11 U/L (0-33) 09/16/22 02:22 Alkaline Phosphatase 97 U/L (35-105) 09/16/22 02:22 NT-Pro-B Natriuret Pep 82386 pg/mL (0-450) H 09/13/22 03:08 Total Protein 7.3 g/dL (6.6-8.7) 09/16/22 02:22 Albumin 3.4 g/dL (3.5-5.2) L 09/16/22 02:22 Globulin 3.9 g/dL (1.3-4.6) 09/16/22 02:22 Urine Color Yellow (Yellow) 09/14/22 18:51 Urine Appearance Clear (CLEAR) 09/14/22 18:51 Urine pH 7 (5-7) 09/14/22 18:51 Ur Specific [place] 1.000 (1.005-1.030) L 09/14/22 18:51 Urine Protein Trace (Negative) 09/14/22 18:51 Urine Glucose (UA) Norm (Normal) 09/14/22 18:51 Urine Ketones 1+ (Negative) H 09/14/22 18:51 Urine Blood 2+ (Negative) H 09/14/22 18:51 Urine Nitrate Negative (Negative) 09/14/22 18:51 Urine Bilirubin 1+ (Negative) H 09/14/22 18:51 Urine Urobilinogen 1 mg/dL (Negative) H 09/14/22 18:51 Ur Leukocyte Esterase 2+ (Negative) H 09/14/22 18:51 Urine RBC 0-4 /hpf (0-2) H 09/14/22 18:51 Urine WBC 10-15 /hpf (0-5) H 09/14/22 18:51 Ur Squamous Epith Cells 0-4 /hpf (0-5) H 09/14/22 18:51 Amorphous Sediment Not Reportable 09/14/22 18:51 Urine Bacteria None /hpf (NONE) 09/14/22 18:51 Nasal Influ A H1 2009 PCR Not detected (NOT DETECT) 09/12/22 21:22 Adenovirus (PCR) Not detected (NOT DETECT) 09/12/22 21:22 C. pneumoniae DNA (PCR) Not detected (NOT DETECT) 09/12/22 21:22 Coronavirus 229E (PCR) Not detected (NOT DETECT) 09/12/22 21:22 Human Metapneumovir PCR Not detected (NOT DETECT) 09/12/22 21:22 Influenza A (H1) PCR Not detected (NOT DETECT) 09/12/22 21:22 Influenza A (H3) PCR Not detected (NOT DETECT) 09/12/22 21:22 Influenza Type A (PCR) Not detected (NOT DETECT) 09/12/22 21:22 Influenza Type B (PCR) Not detected (NOT DETECT) 09/12/22 21:22 M. pneumoniae (PCR) Not detected (NOT DETECT) 09/12/22 21:22 Parainfluenza 1 (PCR) Not detected (NOT DETECT) 09/12/22 21:22 Parainfluenza 2 (PCR) Not detected (NOT DETECT) 09/12/22 21:22 Parainfluenza 3 (PCR) Not detected (NOT DETECT) 09/12/22 21:22 Parainfluenza 4 (PCR) Not detected (NOT DETECT) 09/12/22 21:22 RSV Type A (PCR) Not detected (NOT DETECT) 09/12/22 21:22 RSV Type B (PCR) Not detected (NOT DETECT) 09/12/22 21:22 Entero/Rhino (PCR) Not detected (NOT DETECT) 09/12/22 21:22 SARS-CoV-2 (PCR) Not detected (NOT DETECT) 09/12/22 21:22 SARS-CoV-2 Ag (Rapid) negative (Negative) 09/12/22 19:30 Vitals Last Vital Signs Temp 98.4 F 09/15/22 20:07 Pulse 91 09/16/22 09:00 Resp 20 H 09/16/22 09:00 BP 114/76 09/16/22 09:00 Pulse Ox 93 09/16/22 09:00 O2 Del Method BiPAP 09/16/22 07:50 O2 Flow Rate 4 09/15/22 13:00 FiO2 40 09/16/22 07:50 Discharge Plan Discharge Patient Disposition: Xfer SNF Condition: Fair Prescriptions: New prednisone 50 mg tablet 50 mg PO DAILY 4 Days Qty: 4 0RF Lasix 20 mg tablet 20 mg PO DAILY Qty: 30 3RF Continued albuterol sulfate 90 mcg/actuation HFA aerosol inhaler 2 puff INHALATION QID PRN (Reason: Shortness Of Breath) duloxetine 20 mg capsule,delayed release(DR/EC) 20 mg PO QAM donepezil [Aricept] 10 mg tablet 10 mg PO QPM vitamin B complex [B Complex-Vitamin B12] Tablet 1 tab PO QAM Spiriva with HandiHaler 18 mcg capsule, w/inhalation device 1 cap INHALATION DAILY Calcium 600 with Vitamin D3 600 mg(1,500mg) -400 unit tablet,chewable 1 tab PO QAM mirtazapine 15 mg tablet 15 mg PO BEDTIME morphine 15 mg tablet 15 mg PO DAILY PRN (Reason: Pain) morphine 30 mg tablet extended release 30 mg PO Q12H Miralax 17 gram Powder In Packet 17 g PO DAILY PRN (Reason: Constipation) omeprazole 40 mg capsule,delayed release(DR/EC) 40 mg PO QAM gabapentin 100 mg capsule 100 mg PO QPM nystatin 100,000 unit/gram powder 1 applic TOPICAL . DIRECTED PRN (Reason: unknown) ondansetron 4 mg tablet,disintegrating 4 mg PO TID PRN (Reason: Nausea And Vomiting) albuterol sulfate 2.5 mg /3 mL (0.083 %) Solution For Nebulization 2.5 mg inhalation TID Discharge Orders: Discharge Order (Routine); Ordered 09/16/22 Ordered By: Jamie Gee Referrals: [facility] [Outside] (Discharge to [facility]. [phone] [facility] to acquire medications as per there Pharmacy and follow up with Primary care Providors ) Naomi Lyn MD [Primary Care Provider] - Datar,Carlitos Bear MD [Physician] - 2 weeks Patient Instructions: Furosemide (By mouth) (Lasix), Prednisone (By mouth), Pulmonary Edema (DC), Urinary Tract Infection in Women (DC), Sepsis (DC), Chronic Respiratory Failure (DC), COPD Stoplight, Opioid Safety Discharge Attestations Time Spent in Discharge Care*: less than 30 min Quality Metrics Clinical Quality Measures [ No reported AMI, CVA or VTE this stay] Coding Level of Care Code Acute Code for [facility] Fwd Diagnoses Respiratory failure J96.90 Pulmonary edema J81.1 Acute exacerbation of chronic obstructive pulmonary disease J44.1 Acute renal failure N17.9
--- NOTE | 2022-09-16 11:05 | PC.NURSE ---
Report called to [facility]. IVs and Carlene D/C, patient off unit with [facility] transport at this time, Family left with patient
[2022-09-16 11:08] LABS: SARS Covid-2 Antigen negative (Negative)
== END 2022-09-16 11:14 | disposition skilled nursing facility (03) | DRG 189 ==
LOC: ER 18:46 → ICU 20:49
PROVIDERS: Admitting Provider Internal Medicine; Emergency Provider Emergency Medicine; PCP Family Medicine; Visit Provider Internal Medicine
DX: J96.22 Acute and chronic respiratory failure with hypercapnia (principal); I50.33 Acute on chronic diastolic (congestive) heart failure; J18.9 Pneumonia, unspecified organism; J44.1 Chronic obstructive pulmonary disease with (acute) exacerbation; J44.0 Chronic obstructive pulmonary disease with (acute) lower respiratory infection; N17.9 Acute kidney failure, unspecified; N39.0 Urinary tract infection, site not specified; J96.21 Acute and chronic respiratory failure with hypoxia; N18.9 Chronic kidney disease, unspecified; F03.90 Unspecified dementia, unspecified severity, without behavioral disturbance, psychotic disturbance, mood disturbance, and anxiety; F41.9 Anxiety disorder, unspecified; F32.A Depression, unspecified; Z99.89 Dependence on other enabling machines and devices; Z79.51 Long term (current) use of inhaled steroids; Z79.891 Long term (current) use of opiate analgesic; Z91.041 Radiographic dye allergy status; F17.200 Nicotine dependence, unspecified, uncomplicated
CPT/HCPCS: 12345; 36415; 36600; 51702; 71045; 71275; 80051; 80053; 81001; 82330; 82805; 83605; 83735; 83880; 84100; 85025; 85378; 87040; 87426; 87486; 87581; 87633; 93005; 93306; 94640; 94660; 94664; 96372; 96374; 96375; 96376; 97161; 97530; 99291; J0456; J0696; J1100; J1644; J1940; J2060; J3486; J7030; J7050; J7626; Q9967

== ENCOUNTER 2022-10-03 09:01 | Emergency (ER) | payer MEDICARE, MEDICAID, SELFPAY ==
[2022-10-03 09:13] VITALS: BP 134/81; PULSE 94; RESP 20; TEMP 36.9; O2SAT 91; BMI 29.2
--- NOTE | 2022-10-03 09:13 | XRR_ITS ---
PROCEDURE INFORMATION: Exam: XR Chest Exam date and time: 10/03/2022 9:35 AM Age: 81 years old Clinical indication: Other: Weakness TECHNIQUE: Imaging protocol: Radiologic exam of the chest. Views: 1 view. COMPARISON: CR (CHEST, ) 09/12/2022 6:54 PM FINDINGS: Lungs: There is focal opacity projecting over the lateral right mid lung suggesting trace fluid in the minor fissure. The left lung is clear. There is dense asymmetric infrahilar opacity on the right obscuring the right heart border suggesting partial atelectasis or consolidation in the right middle lobe. Pleural spaces: There is no pleural effusion or pneumothorax. Heart/Mediastinum: Heart size is poorly evaluated. There are calcified lymph nodes in the mediastinum. Diaphragm: There is mild asymmetric elevation of the right hemidiaphragm. Bones/joints: Unremarkable. XR/XR chest 1V portable [id number] IMPRESSION: 1. Infrahilar opacity on the right. Probable partial atelectasis of the right middle lobe. Infection not excluded. 2. Focal opacity in the right midlung. Probable trace fluid in the minor fissure.
--- NOTE | 2022-10-03 09:25 | ECG_ITS ---
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 Measurements Intervals [place] Rate: 87 P: -31 [place]: 204 QRS: -50 QRSD: 85 T: 23 QT: 349 QTc: 421 Interpretive Statements SINUS RHYTHM LEFT AXIS DEVIATION [QRS AXIS < -30] PATTERN CONSISTENT WITH PULMONARY DISEASE Compared to ECG 09/12/2022 18:56:09 ST (T wave) deviation no longer present Electronically Signed On 10-03-2022 9:44:01 CDT by Yaniv Savage M.D. [email or web address]/store/[id number]
--- NOTE | 2022-10-03 09:39 | ED_ITS ---
HPI - Weakness 2 General: Chief complaint: Weakness Stated complaint: Weakness, Nausea, Headpain Time Seen by Provider: 10/03/22 09:13 History of Present Illness: Patient is an 81-year-old female comes to the ED with nausea and weakness. Past medical history of CHF and COPD. Patient is on 3 L of oxygen at home. She lives at home and her daughter lives with her and helps take care of her. Patient uses a walker at baseline. Since yesterday patient is complaining of generalized weakness and fatigue. She has been more tired and sleepy. She is also complaining of some abdominal bloating and nausea. She endorses poor sleep over the past 3 nights. Patient says she checks her weight daily and has not been gaining any weight. Denies any chest pain, fever, chills, shortness of breath, hemoptysis, vomiting, diarrhea, constipation, dysuria or hematuria. Associated symptoms: Reports nausea; Denies chest pain, chills, dysuria, fever(s), headache(s) or vomiting Review of Systems 2 Const: Reports: fatigue (Generalized weakness); Denies: fever(s) or chills Eyes: Denies: change in vision or eye discomfort ENMT: Denies: throat pain, odynophagia, nasal discharge or nasal congestion Card: Denies: chest pain, palpitations, edema, swelling of feet/ankles, dyspnea on exertion or orthopnea Resp: Denies: dyspnea, productive cough or non-productive cough GI: Reports: nausea; Denies: abdominal pain, vomiting, diarrhea, constipation or hematochezia : Denies: flank pain, dysuria or hematuria Musc: Denies: neck pain, back pain or extremity swelling Skin/Breast: Denies: rash or new lesions Neuro: Denies: headache(s), numbness in extremities or weakness in extremities PFSH ED 2 PFSH: Medical History Acute renal failure Pulmonary edema Acute exacerbation of chronic obstructive pulmonary disease Respiratory failure History of genital organ removal vulvectomy Urinary frequency Mixed stress and urge urinary incontinence History of UTI History of urethral stricture Surgical History History of fundoplication History of back surgery History of appendectomy History of total hip replacement History of cholecystectomy Family History Father Cancer Social History Smoking and tobacco/nicotine status: former use of tobacco/nicotine Quit status (tobacco/nicotine): has quit using Year quit tobacco: 2020 Former quit date comment: 1.5 ppd X 50 years Alcohol intake: never Substance/Drug Use: never Adopted: No Caregiver/support person: No Lives independently: No Household members: spouse Marital status: Current occupational status: retired Current gender identity: Female Physical Exam 2 Narrative: EXAM NARRATIVE: Patient is sitting comfortably on exam bed when in the room. She appears in no obvious acute respiratory distress. Const: COMMON NORMALS: no acute distress, patient oriented x3 and alert HENMT: COMMON NORMALS: normocephalic HEAD & SCALP: normocephalic MOUTH: Normal oral and palatal mucosa present THROAT: posterior oropharynx normal and uvula midline Neck/C-Spine: COMMON NORMALS: supple GENERAL: Yes normal visual inspection Resp: COMMON NORMALS: normal respiratory effort, No retractions and No use of accessory muscles AUSCULTATION: diminished lung sounds bilateral in the lower lung de la cruz Cardio: COMMON NORMALS: regular rate, regular rhythm, S1 normal heart sound present, S2 normal heart sound present, No gallops present (Cardio), No clicks present (Cardio), No murmurs present (Cardio) and Peripheral pulses 2+ throughout RATE: regular rate RHYTHM: regular rhythm HEART SOUNDS: S1 normal heart sound present and S2 normal heart sound present PERIPHERAL PULSES: Peripheral pulses 2+ throughout GI: COMMON NORMALS: Normal to inspection, nondistended, normoactive bowel sounds present, Soft to palpation, non-tender and no masses PALPATION: Yes Soft to palpation : COMMON NORMALS: Yes no CVA tenderness BLADDER/KIDNEY EXAM: Yes no CVA tenderness Back/Pelvis: COMMON NORMALS: no CVA tenderness Extremity: COMMON NORMALS: normal to inspection and no pedal edema Neuro: COMMON NORMALS: patient oriented x3 SENSORIUM/ORIENTATION: Yes alert GAIT: Yes Normal gait present Skin: GENERAL SKIN EXAM: dry skin Course 2 Vital Signs: Vital signs: Vital Signs Temperature 98.5 F 10/03/22 09:13 Pulse Rate 95 10/03/22 14:29 Respiratory Rate 20 H 10/03/22 13:32 Blood Pressure 127/69 10/03/22 14:29 Pulse Oximetry 92 10/03/22 14:29 Oxygen Delivery Me thod Nasal Cannula 10/03/22 13:32 Oxygen Flow Rate 3 10/03/22 13:32 MDM - Weakness Medical Decision Making Patient is an 81-year-old female comes to the ED with nausea and weakness. Past medical history of CHF and COPD. Patient is on 3 L of oxygen at home. She lives at home and her daughter lives with her and helps take care of her. Patient uses a walker at baseline. Since yesterday patient is complaining of generalized weakness and fatigue. She has been more tired and sleepy. She is also complaining of some abdominal bloating and nausea. She endorses poor sleep over the past 3 nights. Patient says she checks her weight daily and has not been gaining any weight. Denies any chest pain, fever, chills, shortness of breath, hemoptysis, vomiting, diarrhea, constipation, dysuria or hematuria. Patient is stable and on 3 L of O2 and oxygen level is 94%. Rest of vitals are stable. She appears nontoxic and in no acute distress or any respiratory distress. She does have a little diminished lung sounds at the bases of her lungs bilaterally but rest of exam is benign. CBC and CMP were unremarkable. Baseline troponin 15 and 2-hour troponin was 13. EKG showed no acute changes or findings. Chest x-ray shows some right middle lobe opacity, but when comparing it to previous chest x-ray back on September 12, 2022 it looks much improved. I discussed patient case with Dr. Linares and she reviewed labs, imaging, EKG and ABG and she did not think patient needs to be admitted. Patient was diagnosed with COPD and fatigue. she was discharged home with a prescription for an antibiotic and steroid Dosepak. Patient has an appointment set up with primary care next week and is set up to see a director of research center and stamp presser within the next month. Strict return to ED precautions given. Patient understood and agreed with plan. Lab Data I reviewed the patient's lab results. 10/03/22 09:38 10/03/22 10:13 Radiology Impressions Chest X-Ray 10/03/22 09:13 IMPRESSION: 1. Infrahilar opacity on the right. Probable partial atelectasis of the right middle lobe. Infection not excluded. 2. Focal opacity in the right midlung. Probable trace fluid in the minor fissure. Laboratory Results WBC 5.6 10^3/uL (4.0-10.0) 10/03/22 09:38 RBC 4.89 10^6/uL (4.1-5.3) 10/03/22 09:38 Hgb 14.1 g/dL (11.5-15.3) 10/03/22 09:38 Hct 47.6 % (37.0-47.0) H 10/03/22 09:38 MCV 97.3 fl (81-99) 10/03/22 09:38 MCH 28.8 pg (28.0-34.0) 10/03/22 09:38 MCHC 29.6 g/dL (30.0-36.0) L 10/03/22 09:38 RDW 16.5 % (12.1-15.1) H 10/03/22 09:38 Plt Count 252 10^3/cmm (130-400) 10/03/22 09:38 MPV 9.8 fL (7.4-10.4) 10/03/22 09:38 Neut % (Auto) 59.2 % 10/03/22 09:38 Lymph % (Auto) 27.5 % 10/03/22 09:38 [place] % (Auto) 7.2 % 10/03/22 09:38 Eos % (Auto) 4.5 % 10/03/22 09:38 Baso % (Auto) 1.4 % 10/03/22 09:38 Neut # (Auto) 3.29 10^3/uL (1.8-7.7) 10/03/22 09:38 Lymph # (Auto) 1.5 10^3/uL (0.8-4.8) 10/03/22 09:38 [place] # (Auto) 0.4 10^3/uL (0.2-0.9) 10/03/22 09:38 Eos # (Auto) 0.3 10^3/uL (0.0-0.8) 10/03/22 09:38 Baso # (Auto) 0.1 10^3/uL (0.0-0.1) 10/03/22 09:38 Nucleated RBC % (auto) 0 % 10/03/22 09:38 Nucleated RBCs # 0.0 /100WBC 10/03/22 09:38 Specimen Type Arterial 10/03/22 10:03 Sample Site Radial, left 10/03/22 10:03 ABG pH 7.37 (7.35-7.45) 10/03/22 10:03 ABG pCO2 61.2 mmHg (35-45) H* 10/03/22 10:03 ABG pO2 89.7 mmHg (80.0-100.0) 10/03/22 10:03 ABG HCO3 35.5 mmol/L (22-26) H 10/03/22 10:03 ABG O2 Saturation 97.2 10/03/22 10:03 ABG Base Excess 8.1 mmol/L (-2.0-2.0) H 10/03/22 10:03 Pj Test Pos 10/03/22 10:03 A-a O2 Gradient 8.3 mmHg (5-10) 10/03/22 10:03 Hematocrit 41.5 % (37-47) 10/03/22 10:03 Hgb O2 Saturation 96.1 % (95-100) 10/03/22 10:03 Carboxyhemoglobin 1.1 %THgb (0.4-20.1) 10/03/22 10:03 Methemoglobin 0.1 % (0.4-1.5) L 10/03/22 10:03 Total Hemoglobin 13.6 g/dL (12-16) 10/03/22 10:03 Sodium 143.0 mmol/L (131-143) 10/03/22 10:03 Potassium 4.1 mmol/L (3.5-5.0) 10/03/22 10:03 Glucose 100.0 mg/dL (70-115) 10/03/22 10:03 Ionized Calcium 1.2 mmol/L (1.1-1.4) 10/03/22 10:03 O2 Delivery Device Nc 10/03/22 10:03 O2 Liters/Min 3.0 % 10/03/22 10:03 FiO2 32.0 % 10/03/22 10:03 Senior Quantity Surveyor ID glc 10/03/22 10:03 Sodium 136 mmol/L (136-145) 10/03/22 10:13 Potassium 4.1 mmol/L (3.5-5.1) 10/03/22 10:13 Chloride 95 mmol/L (98-107) L 10/03/22 10:13 Carbon Dioxide 35 mmol/L (22-29) H 10/03/22 10:13 Anion Gap 10.1 (5-19) 10/03/22 10:13 BUN 11 mg/dL (8-23) 10/03/22 10:13 Creatinine 0.9 mg/dL (0.5-0.9) 10/03/22 10:13 GFR Calculation Not Reportable 10/03/22 10:13 Glucose 98 mg/dL (65-115) 10/03/22 10:13 Calculated Osmolality 281 mOsm/kg (285-295) L 10/03/22 10:13 Calcium 9.1 mg/dL (8.5-10.5) 10/03/22 10:13 Total Bilirubin 0.2 mg/dL (0.15-1.2) 10/03/22 10:13 AST 23 U/L (0-32) 10/03/22 10:13 ALT 15 U/L (0-33) 10/03/22 10:13 Alkaline Phosphatase 98 U/L (35-105) 10/03/22 10:13 Troponin T Baseline 15 ng/L (0-10) H 10/03/22 10:13 Troponin T 120 Minute 13.93 ng/L (0-10) H 10/03/22 12:43 Delta Troponin T -1.07 ABS# (0-10) L 10/03/22 12:43 NT-Pro-B Natriuret Pep 216 pg/mL (0-450) 10/03/22 12:43 Total Protein 7.0 g/dL (6.6-8.7) 10/03/22 10:13 Albumin 3.5 g/dL (3.5-5.2) 10/03/22 10:13 Globulin 3.5 g/dL (1.3-4.6) 10/03/22 10:13 Urine Color Colorless (Yellow) 10/03/22 10:21 Urine Appearance Sl hazy (CLEAR) A 10/03/22 10:21 Urine pH 5 (5-7) 10/03/22 10:21 Ur Specific [place] 1.010 (1.005-1.030) 10/03/22 10:21 Urine Protein Neg (Negative) 10/03/22 10:21 Urine Glucose (UA) Norm (Normal) 10/03/22 10:21 Urine Ketones Negative (Negative) 10/03/22 10:21 Urine Blood 3+ (Negative) H 10/03/22 10:21 Urine Nitrate Negative (Negative) 10/03/22 10:21 Urine Bilirubin Neg (Negative) 10/03/22 10:21 Urine Urobilinogen Norm mg/dL (Negative) 10/03/22 10:21 Ur Leukocyte Esterase 2+ (Negative) H 10/03/22 10:21 Urine RBC 5-10 /hpf (0-2) H 10/03/22 10:21 Urine WBC 5-10 /hpf (0-5) H 10/03/22 10:21 Ur Squamous Epith Cells 0-4 /hpf (0-5) H 10/03/22 10:21 Amorphous Sediment Not Reportable 10/03/22 10:21 Urine Bacteria 1+ /hpf (NONE) H 10/03/22 10:21 EKG Data EKG 1: EKG interpretation date: 10/03/22 Interpretation: normal sinus rhythm, 87bpm. no st segment elevation or depression seen. Discharge Plan Discharge Patient Disposition: Home Clinical Impression: COPD (chronic obstructive pulmonary disease), Fatigue Condition: Stable Prescriptions: No Action duloxetine 20 mg capsule,delayed release(DR/EC) 20 mg PO QAM donepezil [Aricept] 10 mg tablet 10 mg PO BEDTIME vitamin B complex [B Complex-Vitamin B12] Tablet 1 tab PO QAM Calcium 600 with Vitamin D3 600 mg(1,500mg) -400 unit tablet,chewable 1 tab PO QAM mirtazapine 15 mg tablet 15 mg PO BEDTIME levalbuterol tartrate [Xopenex HFA] 45 mcg/actuation HFA aerosol inhaler 2 inh inhalation Q6H PRN (Reason: shortness of breath or wheezing) Qty: 15 6RF levalbuterol HCl 0.63 mg/3 mL solution for nebulization 0.63 mg inhalation TID PRN (Reason: shortness of breath or wheezing) Qty: 270 6RF fluticasone propionate [Flonase Allergy Relief] 50 mcg/actuation spray,suspension 1 spray intranasal BID Qty: 18 3RF Rx Instructions: administer into each nostril isosorbide mononitrate 30 mg tablet extended release 24 hr 30 mg PO BEDTIME Qty: 90 3RF morphine 30 mg tablet extended release 30 mg PO Q12H potassium chloride 10 mEq capsule, extended release 10 meq PO QAM nitroglycerin 0.4 mg tablet, sublingual 0.4 mg sublingual Q5M PRN (Reason: Chest Pain) Rx Instructions: do not exceed 3 doses per episode furosemide [Lasix] 20 mg tablet 20 mg PO QAM polyethylene glycol 3350 [Miralax] 17 gram Powder In Packet 17 g PO DAILY PRN (Reason: Constipation) omeprazole 40 mg capsule,delayed release(DR/EC) 40 mg PO QAM gabapentin 100 mg capsule 100 mg PO QPM nystatin 100,000 unit/gram powder 1 applic TOPICAL . DIRECTED PRN (Reason: unknown) ondansetron 4 mg tablet,disintegrating 4 mg PO TID PRN (Reason: Nausea And Vomiting) Discharge Orders: Discharge ED (Routine); Ordered 10/03/22 Ordered By: Torres Pedraza Referrals: Naomi Lyn MD [Primary Care Provider] - Discharge Diet: Regular Discharge Activity: Increase activity as tolerated Patient Instructions: COPD (Chronic Obstructive Pulmonary Disease) (DC) Activity Restrictions/Additional Instructions: Follow-up with medical provider as directed in the next 3 to 5 days for reevaluation. Take medications as prescribed. Continue taking all home medications as previously prescribed. Return to the ER or your medical provider if condition worsens. Please read and understand discharge instructions. Thank you for choosing [facility] for your healthcare needs today. Please realize this is an emergency room and that we are providing you with a medical screening exam and this may not be complete and all inclusive of all the testing and or work up that you may need to determine your ailment or severity of your illness. It is very important that you follow up as instructed or that you return to the Emergency Department should you have concerns or if your condition changes or worsens in any way. Coding Level of Care Code ED Digital Print Operator for Nelia Diaz
[2022-10-03 09:49] LABS: Basophils # 0.1 10^3/uL (0.0-0.1); Basophils % 1.4 %; Eosinophils # 0.3 10^3/uL (0.0-0.8); Eosinophils % 4.5 %; Hematocrit 47.6 % (37.0-47.0); Hemoglobin 14.1 g/dL (11.5-15.3); Lymphocytes # 1.5 10^3/uL (0.8-4.8); Lymphocytes % 27.5 %; Mean Corpuscular HGB Conc 29.6 g/dL (30.0-36.0); Mean Corpuscular Hemoglobin 28.8 pg (28.0-34.0); Mean Corpuscular Volume 97.3 fl (81-99); Mean Platelet Volume 9.8 fL (7.4-10.4); Monocytes # 0.4 10^3/uL (0.2-0.9); Monocytes % 7.2 %; Neutrophils # 3.29 10^3/uL (1.8-7.7); Neutrophils % 59.2 %; Nucleated Red Blood Cells % 0 %; Platelet Count 252 10^3/cmm (130-400); Red Blood Count 4.89 10^6/uL (4.1-5.3); Red Cell Distribution Width 16.5 % (12.1-15.1); White Blood Count 5.6 10^3/uL (4.0-10.0)
[2022-10-03 10:15] LABS: ABG PH Result 7.37 (7.35-7.45); Alveolar-Arterial Oxygen Gradi 8.3 mmHg (5-10); Arterial Blood Gas Hematocrit 41.5 % (37-47); Base Excess ABG 8.1 mmol/L (-2.0-2.0); Blood Gas Allen Test Pos; Blood Gas Operator Identificat glc; Blood Gas Sample Site Radial, left; Blood Gas Sample Type Arterial; Carboxyhemoglobin 1.1 %THgb (0.4-20.1); HCO3 ABG 35.5 mmol/L (22-26); HGB O2 Sat 96.1 % (95-100); Ionized Calcium Level - ABG 1.2 mmol/L (1.1-1.4); Methemoglobin 0.1 % (0.4-1.5); Oxygen Device NC; Oxygen Saturation ABG 97.2; PO2 ABG 89.7 mmHg (80.0-100.0); Potassium Level - ABG 4.1 mmol/L (3.5-5.0); Total Hemoglobin 13.6 g/dL (12-16)
[2022-10-03 10:46] LABS: Add Urine Microscopic? YES; Bilirubin Urine Neg (Negative); Blood Urine 3+ (Negative); Glucose Urine UA Norm (Normal); Ketones Urine Negative (Negative); Leukocyte Esterase Urine 2+ (Negative); Nitrate Urine Negative (Negative); Protein Urine Neg (Negative); Urine Appearance SL Hazy (CLEAR); Urine Color Colorless (Yellow); Urobilinogen Urine Norm (Negative); pH Urine 5 (5-7)
[2022-10-03 10:48] LABS: Bacteria Urine 1+ /hpf; Squamous Epithelial Cell Urine 0-4 /hpf (0-5)
[2022-10-03 10:49] LABS: Add Urine Culture? Yes
[2022-10-03 10:57] LABS: ABG PCO2 61.2 mmHg (35-45)
[2022-10-03 11:03] LABS: Troponin(5th) Baseline 15 ng/L (0-10)
--- NOTE | 2022-10-03 11:14 | ECG_ITS ---
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 Measurements Intervals [place] Rate: 93 P: 0 GA: 0 QRS: -54 QRSD: 83 T: 34 QT: 343 QTc: 428 Interpretive Statements SUPRAVENTRICULAR RHYTHM LEFT AXIS DEVIATION [QRS AXIS < -30] PATTERN CONSISTENT WITH PULMONARY DISEASE Compared to ECG 10/03/2022 09:25:33 Supraventricular rhythm now present Sinus rhythm no longer present Electronically Signed On 10-04-2022 8:12:40 CDT by Yaniv Savage M.D. [email or web address] [email or web address].[employer]/store/OM/[id number]/[id number]
--- NOTE | 2022-10-03 11:26 | PC.NURSE ---
PT WAS ASSISTED X1 TO THE BS COMODE.
[2022-10-03 11:28] VITALS: BP 114/95; PULSE 92; O2SAT 99
[2022-10-03 11:36] LABS: Alanine Aminotransferase 15 U/L (0-33); Albumin Level 3.5 g/dL (3.5-5.2); Alkaline Phosphatase 98 U/L (35-105); Anion Gap 10.1 (5-19); Aspartate Amino Transferase 23 U/L (0-32); Blood Urea Nitrogen 11 mg/dL (8-23); Calcium 9.1 mg/dL (8.5-10.5); Carbon Dioxide 35 mmol/L (22-29); Chloride 95 mmol/L (98-107); Globulin 3.5 g/dL (1.3-4.6); Glucose 98 mg/dL (65-115); NT Pro B Type Natriuretic Pept 208 pg/mL (0-450); Osmolality Calculated 281 mOsm/kg (285-295); Potassium 4.1 mmol/L (3.5-5.1); Sodium 136 mmol/L (136-145); Total Bilirubin 0.2 mg/dL (0.15-1.2)
[2022-10-03] MEDS: methylPREDNISolone (DEPO) 80 MG/ML INJ 1 mL IM (13:11)
[2022-10-03] MEDS: doxycycline 100 mg Tablet PO (13:11)
[2022-10-03 13:15] VITALS: BP 120/88; PULSE 90; RESP 18; O2SAT 93
[2022-10-03 13:29] LABS: Troponin 5 2HR 13.93 ng/L (0-10)
[2022-10-03] MEDS: ipratropium-albuterol 3 mL Neb INHALATION (13:29)
[2022-10-03 13:32] VITALS: PULSE 84; RESP 20; O2SAT 94
[2022-10-03 13:38] LABS: NT Pro B Type Natriuretic Pept 216 pg/mL (0-450); Troponin 5 2HR Delta -1.07 ABS# (0-10)
[2022-10-03 14:29] VITALS: BP 127/69; PULSE 95; O2SAT 92
== END 2022-10-03 14:36 | disposition home or self-care (01) ==
PROVIDERS: Emergency Provider Physician Assistant; PCP Family Medicine
DX: J44.9 Chronic obstructive pulmonary disease, unspecified (principal); R53.83 Other fatigue; I50.9 Heart failure, unspecified; F17.200 Nicotine dependence, unspecified, uncomplicated; Z99.81 Dependence on supplemental oxygen
CPT/HCPCS: 36415; 36600; 51701; 71045; 80051; 80053; 81001; 82330; 82805; 83880; 84484; 85025; 87086; 93005; 94640; 96372; 99285; J1040

== ENCOUNTER → 2022-11-04 10:06 | Outpatient (BNVA) | payer MEDICARE, MEDICAID, SELFPAY | PROVIDERS: PCP Family Medicine; Visit Provider Internal Medicine Cardiovascular Disease | DX: R07.9 Chest pain, unspecified (principal); R06.02 Shortness of breath; I50.31 Acute diastolic (congestive) heart failure; J44.1 Chronic obstructive pulmonary disease with (acute) exacerbation; R94.31 Abnormal electrocardiogram [ECG] [EKG]; F17.200 Nicotine dependence, unspecified, uncomplicated | CPT/HCPCS: 36415; 80048; 83880; 93005; 99204 ==

== ENCOUNTER → 2022-11-04 12:29 | Outpatient (BNVA) | payer MEDICARE, MEDICAID, SELFPAY | PROVIDERS: PCP Family Medicine; Visit Provider Internal Medicine Cardiovascular Disease | DX: R07.9 Chest pain, unspecified (principal); I44.4 Left anterior fascicular block | CPT/HCPCS: 93005 ==

== ENCOUNTER → 2022-11-08 13:46 | Outpatient (BNVA) | payer MEDICARE, MEDICAID, SELFPAY | PROVIDERS: PCP Family Medicine; Visit Provider Dermatology | DX: L72.8 Other follicular cysts of the skin and subcutaneous tissue (principal); L81.7 Pigmented purpuric dermatosis; L57.0 Actinic keratosis; L81.4 Other melanin hyperpigmentation; Z08 Encounter for follow-up examination after completed treatment for malignant neoplasm; Z85.828 Personal history of other malignant neoplasm of skin | CPT/HCPCS: 99213 ==

== ENCOUNTER → 2022-12-27 09:04 | Outpatient (BNVA) | payer MEDICARE, MEDICAID, SELFPAY | PROVIDERS: PCP Family Medicine; Visit Provider Internal Medicine Pulmonary Disease | DX: J44.9 Chronic obstructive pulmonary disease, unspecified (principal); R59.0 Localized enlarged lymph nodes; Z87.891 Personal history of nicotine dependence; J96.12 Chronic respiratory failure with hypercapnia; I50.30 Unspecified diastolic (congestive) heart failure; Z99.81 Dependence on supplemental oxygen; J98.11 Atelectasis | CPT/HCPCS: 99204 ==

== ENCOUNTER 2023-01-05 15:40 | Outpatient (CLI) | payer MEDICARE, MEDICAID, SELFPAY ==
--- NOTE | 2023-01-05 15:30 | CT_ITS ---
WS: [id number] CT chest wo con [id number] HISTORY: F/U adenopathy TECHNIQUE: Axial imaging performed through the thorax. Coronal and sagittal reformats are submitted. All CT scans at [facility] use at least one of these dose optimization techniques: automated exposure control; mA and/or kV adjustment per patient size (includes targeted exams where dose is mat ched to clinical indication); or iterative reconstruction. CONTRAST: None DLP: 379.46 mGy.cm COMPARISON: 09/15/2022 Lungs and central airway: Mild pulmonary hyperinflation. Improved aeration bilaterally. Linear platel kristin areas of atelectasis at the RIGHT lung base and in the RIGHT middle lobe. New subsolid and ground glass opacification in the LEFT lower lobe measuring 4.1 x 2.5 x 3.2 cm. Atelectasis was noted on the prior study which has resolved in the LEFT lower lobe. No mass. Pleura: Normal. No pleural effusion. Heart and pericardium: Mild cardiomegaly. No pericardial effusion. Increased pericardial fat. Mediastinum and joshua: Numerous mediastinal and hilar lymph nodes are reidentified. Some of these lymp h nodes are benign and contain central calcifications. Hilar lymph nodes are difficult to visualize w ithout IV contrast. RIGHT inferior paratracheal lymph node is the largest at 10.7 mm. The periaortic and aortocaval and additional paratracheal lymph nodes are subcentimeter. No increase in size or numb er. Vessels: Mild atherosclerosis aorta. Normal pulmonary artery Chest wall and lower neck: No soft tissue masses. Upper abdomen: Hepatic and splenic granulomata. Small hiatal hernia. Prior cholecystectomy. No adrena l mass. Osseous structures: No destructive process. IMPRESSION: 1. No significant progression of the visualized mediastinal and hilar lymph nodes. Hilar lymph nodes are more difficult to visualize without IV contrast. No progression of the mediastinal lymph nodes. S ome of these lymph nodes contain calcifications suggesting these are benign lymph nodes. 2. Overall improved aeration with less atelectasis as compared to 09/15/2022. 3. New subsolid and groundglass opacification in the LEFT lower lobe. This will need to be further ev aluated by follow-up CT. This is probably an area of pneumonitis. Less likely neoplasm due to its rik den onset. Recommend follow-up chest CT in 3 months.
== END 2023-01-05 15:41 | disposition home or self-care (01) ==
PROVIDERS: PCP Family Medicine; Visit Provider Internal Medicine Pulmonary Disease
DX: R59.0 Localized enlarged lymph nodes (principal); R91.8 Other nonspecific abnormal finding of lung field; J98.11 Atelectasis
CPT/HCPCS: 71250

== ENCOUNTER → 2023-02-22 14:52 | Outpatient (BNVA) | payer MEDICARE, MEDICAID, SELFPAY | PROVIDERS: PCP Family Medicine; Visit Provider Nurse Practitioner Family | DX: I25.9 Chronic ischemic heart disease, unspecified (principal); I51.89 Other ill-defined heart diseases; Z87.891 Personal history of nicotine dependence | CPT/HCPCS: 99214 ==

== ENCOUNTER → 2023-04-04 10:51 | Outpatient (BNVA) | payer MEDICARE, MEDICAID, SELFPAY | PROVIDERS: PCP Family Medicine; Visit Provider Internal Medicine Pulmonary Disease | DX: J44.9 Chronic obstructive pulmonary disease, unspecified (principal); I51.89 Other ill-defined heart diseases; Z87.891 Personal history of nicotine dependence; J96.12 Chronic respiratory failure with hypercapnia; Z99.81 Dependence on supplemental oxygen | CPT/HCPCS: 99214 ==

== ENCOUNTER 2023-04-20 09:51 | Outpatient (CLI) | payer MEDICARE, MEDICAID, SELFPAY ==
[2023-04-20 10:15] VITALS: PULSE 83; RESP 18; O2SAT 95
[2023-04-20 10:20] VITALS: PULSE 81
[2023-04-20] MEDS: albuterol 2.5 mg/3 mL Neb INHALATION (10:25)
== END 2023-04-20 09:52 | disposition home or self-care (01) ==
LOC: RT 09:52
PROVIDERS: PCP Family Medicine; Visit Provider Internal Medicine Pulmonary Disease
DX: R06.02 Shortness of breath (principal); R94.2 Abnormal results of pulmonary function studies
CPT/HCPCS: 94060; 94618; 94726; 94729; J7613

== ENCOUNTER → 2023-05-17 10:49 | Outpatient (BNVA) | payer MEDICARE, MEDICAID, SELFPAY | PROVIDERS: PCP Family Medicine; Visit Provider Internal Medicine Cardiovascular Disease | DX: R07.9 Chest pain, unspecified (principal) | CPT/HCPCS: 93005 ==

== ENCOUNTER 2023-05-17 11:07 | Emergency (ER) | payer MEDICARE, MEDICAID, SELFPAY ==
--- NOTE | 2023-05-17 11:11 | ECG_ITS ---
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 Measurements Intervals [place] Rate: 75 P: -77 AL: 141 QRS: -42 QRSD: 89 T: 20 QT: 378 QTc: 423 Interpretive Statements ECTOPIC ATRIAL RHYTHM WITH FREQUENT SUPRAVENTRICULAR PREMATURE COMPLEXES LEFT AXIS DEVIATION [QRS AXIS < -30] PATTERN CONSISTENT WITH PULMONARY DISEASE Compared to ECG 05/17/2023 10:53:26 No significant changes Electronically Signed On 05-17-2023 11:50:52 SEWING MACHINE OPERATOR by Ronny Davis M.D. [email or web address] Groupmer[facility] health woman[facility] hospitalShopf[facility].[employer]/store/Ov/[id number]
[2023-05-17 11:18] VITALS: BP 115/70; PULSE 74; RESP 18; TEMP 36.7; O2SAT 81; BMI 31.6
--- NOTE | 2023-05-17 11:30 | XRR_ITS ---
PROCEDURE INFORMATION: Exam: XR Chest Exam date and time: 05/17/2023 11:43 AM Age: 82 years old Clinical indication: Shortness of breath; Additional info: Cxr TECHNIQUE: Imaging protocol: Radiologic exam of the chest. Views: 1 view. COMPARISON: CT chest con [id number] 01/05/2023 4:23 PM FINDINGS: Lungs: Similar linear opacity in the right mid lung, likely atelectasis/scarring.. The left lung is clear. Similar asymmetric infrahilar opacity. Pleural spaces: There is no pleural effusion or pneumothorax. Heart/Mediastinum: Heart size is poorly evaluated. Similar calcified mediastinal lymph nodes. Diaphragm: There is mild asymmetric elevation of the right hemidiaphragm. Bones/joints: Unremarkable. Intraperitoneal space: Surgical clips in the upper abdomen. XR/XR chest 1V portable [id number] IMPRESSION: No interval change.
--- NOTE | 2023-05-17 11:36 | W.ED.CHESTPA ---
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 She states that she was walking to his office started having left anterior chest and left lateral chest discomfort. She states that she became short of breath while walking to his office for an exam. She states that the pain is worse when she takes a deep breath. She does endorse a intermittent nonproductive cough. She states her chest pain is a intermittent sharp pain that occurs when she takes a breath in. She denies nausea, vomiting, fevers chills or night sweats. Associated symptoms: Reports dyspnea Review of Systems General: Reports: 10 or more systems reviewed and unremarkable except in HPI and below Card: Reports: chest pain Resp: Reports: dyspnea and pain on inspiration [facility] ED PFSH: Medical History Acute renal failure Pulmonary edema Acute exacerbation of chronic obstructive pulmonary disease Respiratory failure History of genital organ removal vulvectomy Urinary frequency Mixed stress and urge urinary incontinence History of UTI History of urethral stricture Surgical History History of fundoplication History of back surgery History of appendectomy History of total hip replacement History of cholecystectomy Family History Father Cancer Social History Smoking and tobacco/nicotine status: former use of tobacco/nicotine Quit status (tobacco/nicotine): has quit using Year quit tobacco: 2020 Former quit date comment: 1.5 ppd X 50 years Alcohol intake: never Substance/Drug Use: never Adopted: No Caregiver/support person: No Lives independently: No Household members: spouse Marital status: Current occupational status: retired Current gender identity: Female Physical Exam Narrative: EXAM NARRATIVE: Constitutional: the patient appears well nourished and of normal development. Vital signs as documented. No acute distress at present. Alert and oriented-to person, place, time and situation. Head, eyes, ears, nose, mouth, throat: Normocephalic, atraumatic. Pupils-equal, round, reactive to light. No scleral icterus. Normal-appearing external ears. Normal appearing nasal turbinates, no drainage. No obvious oral lesions, posterior oropharynx without erythema or exudates. Neck: Supple, trachea is midline, no lymphadenopathy, no jugular venous distension, thyromegaly, or carotid bruits. Carotid upstrokes are brisk bilaterally. Lungs: clear to auscultation to all lung de la cruz. Symmetrical rise and fall of chest, no obvious signs of increased work of breathing at present. Left chest wall pain is reproducible upon palpation to the anterior left and left lateral chest wall consistent with costochondritis. Cardiac: Regular rate and rhythm, positive S1, S2. No murmurs, rubs or gallops that I can appreciate Abdomen: Soft, non-tender to palpation, normal active bowel sounds to all quadrants. No palpable masses, no organomegaly and abdominal bruits. Extremities: 2+ pulses in the upper extremities that are equal bilaterally, 2+ pulses in the lower extremities that are equal bilaterally. Non-edematous. Moves all extremities well, sensation to all extremities are noted. Skin: Warm, dry, intact. Course Vital Signs: Vital signs: Vital Signs Temperature 98.0 F 05/17/23 11:18 Pulse Rate 70 05/17/23 11:58 Respiratory Rate 17 05/17/23 11:58 Blood Pressure 127/71 05/17/23 11:58 Pulse Oximetry 98 05/17/23 11:58 Oxygen Delivery Me thod Room Air 05/17/23 11:18 MDM - Chest Pain Medical Decision Making Physical exam completed and documented, I will obtain serial cardiac enzymes, serial twelve-lead EKGs, chest x-ray, CBC, CMP, urinalysis, B-type natriuretic peptide, PT/PTT/INR, and a chest x-ray. I have reviewed previous and pertinent medical records for assist in obtaining beneficial medical information to improved the care and treatment of the patient. Medical Records I reviewed the patient's medical records. Lab Data I reviewed the patient's lab results. 05/17/23 11:40 05/17/23 11:40 Radiology Impressions Chest X-Ray 05/17/23 11:30 IMPRESSION: No interval change. Laboratory Results WBC 4.96 10^3/uL (3.29-11.43) 05/17/23 11:40 RBC 4.18 10^6/uL (3.85-5.65) 05/17/23 11:40 Hgb 12.90 g/dL (11.27-16.99) 05/17/23 11:40 Hct 41.4 % (36-47) 05/17/23 11:40 MCV 99.0 fl (85-98) H 05/17/23 11:40 MCH 30.9 pg (27-33) 05/17/23 11:40 MCHC 31.2 g/dL (30-55) 05/17/23 11:40 RDW 14.7 % (12.1-15.1) 05/17/23 11:40 Plt Count 212 10^3/cmm (157-399) 05/17/23 11:40 MPV 10.1 fL (7.4-10.4) 05/17/23 11:40 Neut % (Auto) 57.9 % 05/17/23 11:40 Lymph % (Auto) 27.6 % 05/17/23 11:40 [place] % (Auto) 10.3 % 05/17/23 11:40 Eos % (Auto) 2.8 % 05/17/23 11:40 Baso % (Auto) 1.2 % 05/17/23 11:40 Neut # (Auto) 2.87 10^3/uL (1.8-7.7) 05/17/23 11:40 Lymph # (Auto) 1.4 10^3/uL (0.8-4.8) 05/17/23 11:40 [place] # (Auto) 0.5 10^3/uL (0.2-0.9) 05/17/23 11:40 Eos # (Auto) 0.1 10^3/uL (0.0-0.8) 05/17/23 11:40 Baso # (Auto) 0.1 10^3/uL (0.0-0.1) 05/17/23 11:40 Nucleated RBC % (auto) 0 % 05/17/23 11:40 Nucleated RBCs # 0.0 /100WBC 05/17/23 11:40 PT 12.80 SECONDS (12.1-14.9) 05/17/23 11:40 INR 0.93 (0.8-1.2) 05/17/23 11:40 APTT 28.0 SECONDS (23.9-36.7) 05/17/23 11:40 Sodium 140 mmol/L (136-145) 05/17/23 11:40 Potassium 3.9 mmol/L (3.5-5.1) 05/17/23 11:40 Chloride 98 mmol/L (98-107) 05/17/23 11:40 Carbon Dioxide 33 mmol/L (22-29) H 05/17/23 11:40 Anion Gap 12.9 (5-19) 05/17/23 11:40 BUN 11 mg/dL (8-23) 05/17/23 11:40 Creatinine 1.0 mg/dL (0.5-0.9) H 05/17/23 11:40 GFR Calculation Not Reportable 05/17/23 11:40 Glucose 114 mg/dL (65-115) 05/17/23 11:40 Calculated Osmolality 290 mOsm/kg (285-295) 05/17/23 11:40 Calcium 9.0 mg/dL (8.5-10.5) 05/17/23 11:40 Total Bilirubin 0.2 mg/dL (0.15-1.2) 05/17/23 11:40 AST 19 U/L (0-32) 05/17/23 11:40 ALT 10 U/L (0-33) 05/17/23 11:40 Alkaline Phosphatase 110 U/L (35-105) H 05/17/23 11:40 Troponin T Baseline 14 ng/L (0-10) H 05/17/23 11:40 NT-Pro-B Natriuret Pep 192 pg/mL (0-450) 05/17/23 11:40 Total Protein 7.5 g/dL (6.6-8.7) 05/17/23 11:40 Albumin 4.1 g/dL (3.5-5.2) 05/17/23 11:40 Globulin 3.4 g/dL (1.3-4.6) 05/17/23 11:40 Urine Color Yellow (Yellow) 05/17/23 12:12 Urine Appearance Clear (CLEAR) 05/17/23 12:12 Urine pH 5 (5-7) 05/17/23 12:12 Ur Specific [place] 1.010 (1.005-1.030) 05/17/23 12:12 Urine Protein Neg (Negative) 05/17/23 12:12 Urine Glucose (UA) Norm (Normal) 05/17/23 12:12 Urine Ketones Negative (Negative) 05/17/23 12:12 Urine Blood Neg (Negative) 05/17/23 12:12 Urine Nitrate Negative (Negative) 05/17/23 12:12 Urine Bilirubin Neg (Negative) 05/17/23 12:12 Urine Urobilinogen Norm mg/dL (Negative) 05/17/23 12:12 Ur Leukocyte Esterase Negative (Negative) 05/17/23 12:12 All radiology interpretation(s) finalized by discharge EKG Data EKG 1: Interpretation: Twelve-lead EKG obtained at 1111 reviewed 1113 demonstrates underlying sinus rhythm with PACs, ventricular rate of 75 bpm, [place] interval 141, QRS duration 89, QT 378, QTc 407. At present there is no ST elevation or depression to demonstrate acute ischemia or infarction. Discharge Plan Discharge Patient Disposition: Home Clinical Impression: Pleuritic chest pain Condition: Stable Prescriptions: New prednisone 20 mg tablet 40 mg PO DAILY 5 Days Qty: 10 0RF prednisone 20 mg tablet 40 mg PO DAILY 5 Days Qty: 10 0RF No Action duloxetine 20 mg capsule,delayed release(DR/EC) 20 mg PO QAM donepezil [Aricept] 10 mg tablet 10 mg PO BEDTIME vitamin B complex [B Complex-Vitamin B12] Tablet 1 tab PO QAM Calcium 600 with Vitamin D3 600 mg(1,500mg) -400 unit tablet,chewable 1 tab PO QAM mirtazapine 15 mg tablet 15 mg PO BEDTIME levalbuterol HCl 0.63 mg/3 mL solution for nebulization 0.63 mg inhalation TID PRN (Reason: shortness of breath or wheezing) Qty: 270 6RF levalbuterol tartrate [Xopenex HFA] 45 mcg/actuation HFA aerosol inhaler 2 inh inhalation Q6H PRN (Reason: shortness of breath or wheezing) Qty: 15 0RF fluticasone propionate [Flonase Allergy Relief] 50 mcg/actuation spray,suspension 1 spray intranasal BID Qty: 18 3RF Rx Instructions: administer into each nostril morphine 30 mg tablet extended release 30 mg PO Q12H potassium chloride 10 mEq capsule, extended release 10 meq PO QAM isosorbide mononitrate 30 mg tablet extended release 24 hr 30 mg PO BEDTIME nitroglycerin 0.4 mg tablet, sublingual 0.4 mg sublingual Q5M PRN (Reason: Chest Pain) Rx Instructions: do not exceed 3 doses per episode furosemide [Lasix] 20 mg tablet 20 mg PO QAM polyethylene glycol 3350 [Miralax] 17 gram Powder In Packet 17 g PO DAILY PRN (Reason: Constipation) omeprazole 40 mg capsule,delayed release(DR/EC) 40 mg PO QAM gabapentin 100 mg capsule 100 mg PO QPM nystatin 100,000 unit/gram powder 1 applic TOPICAL . DIRECTED PRN (Reason: unknown) ondansetron 4 mg tablet,disintegrating 4 mg PO TID PRN (Reason: Nausea And Vomiting) Discharge Orders: Discharge ED (Routine); Ordered 05/17/23 Ordered By: Adán Sharma Referrals: Naomi Lyn MD [Primary Care Provider] - Patient Instructions: Opioid Safety, Pain Management Coding Level of Care Code ED Dependency Counselor for Nelia Diaz
[2023-05-17 11:49] LABS: Basophils # 0.1 10^3/uL (0.0-0.1); Basophils % 1.2 %; Eosinophils # 0.1 10^3/uL (0.0-0.8); Eosinophils % 2.8 %; Hematocrit 41.4 % (36-47); Lymphocytes # 1.4 10^3/uL (0.8-4.8); Lymphocytes % 27.6 %; Mean Corpuscular HGB Conc 31.2 g/dL (30-55); Mean Corpuscular Hemoglobin 30.9 pg (27-33); Mean Platelet Volume 10.1 fL (7.4-10.4); Monocytes # 0.5 10^3/uL (0.2-0.9); Monocytes % 10.3 %; Neutrophils # 2.87 10^3/uL (1.8-7.7); Neutrophils % 57.9 %; Nucleated Red Blood Cells % 0 %; Platelet Count 212 10^3/cmm (157-399); Red Blood Count 4.18 10^6/uL (3.85-5.65); Red Cell Distribution Width 14.7 % (12.1-15.1); White Blood Count 4.96 10^3/uL (3.29-11.43)
[2023-05-17 11:58] VITALS: BP 127/71; PULSE 70; RESP 17; O2SAT 98
[2023-05-17 11:58] LABS: INR 0.93 (0.8-1.2)
[2023-05-17 12:07] LABS: Troponin(5th) Baseline 14 ng/L (0-10)
[2023-05-17 12:10] LABS: Slide Review Slide Review Perform
[2023-05-17 12:25] LABS: Alanine Aminotransferase 10 U/L (0-33); Albumin Level 4.1 g/dL (3.5-5.2); Alkaline Phosphatase 110 U/L (35-105); Anion Gap 12.9 (5-19); Aspartate Amino Transferase 19 U/L (0-32); Blood Urea Nitrogen 11 mg/dL (8-23); Carbon Dioxide 33 mmol/L (22-29); Chloride 98 mmol/L (98-107); Globulin 3.4 g/dL (1.3-4.6); Glucose 114 mg/dL (65-115); NT Pro B Type Natriuretic Pept 192 pg/mL (0-450); Osmolality Calculated 290 mOsm/kg (285-295); Potassium 3.9 mmol/L (3.5-5.1); Sodium 140 mmol/L (136-145); Total Bilirubin 0.2 mg/dL (0.15-1.2); Total Protein 7.5 g/dL (6.6-8.7)
[2023-05-17 12:29] LABS: Add Urine Microscopic? NO; Charge for UA Resulting for Rev
[2023-05-17 12:33] LABS: Urine Appearance Clear (CLEAR); Urine Color Yellow (Yellow); pH Urine 5 (5-7)
[2023-05-17 12:34] LABS: Bilirubin Urine Neg (Negative); Blood Urine Neg (Negative); Glucose Urine UA Norm (Normal); Ketones Urine Negative (Negative); Leukocyte Esterase Urine Negative (Negative); Nitrate Urine Negative (Negative); Protein Urine Neg (Negative); Urobilinogen Urine Norm (Negative)
[2023-05-17 13:21] VITALS: BP 132/74; PULSE 74; RESP 19; O2SAT 92
== END 2023-05-17 12:54 | disposition home or self-care (01) ==
PROVIDERS: Emergency Provider Internal Medicine; PCP Family Medicine
DX: R09.1 Pleurisy (principal); J44.9 Chronic obstructive pulmonary disease, unspecified; Z87.891 Personal history of nicotine dependence; R09.02 Hypoxemia; I25.9 Chronic ischemic heart disease, unspecified; J44.1 Chronic obstructive pulmonary disease with (acute) exacerbation; R94.31 Abnormal electrocardiogram [ECG] [EKG]; I49.8 Other specified cardiac arrhythmias; R07.9 Chest pain, unspecified
CPT/HCPCS: 36415; 71045; 80053; 81003; 83880; 84484; 85025; 85610; 85730; 93005; 99214; 99285

== ENCOUNTER → 2023-07-28 14:16 | Outpatient (BNVA) | payer MEDICARE, MEDICAID, SELFPAY | PROVIDERS: PCP Family Medicine; Visit Provider Internal Medicine Pulmonary Disease | DX: J44.9 Chronic obstructive pulmonary disease, unspecified (principal); I51.89 Other ill-defined heart diseases; Z87.891 Personal history of nicotine dependence; J96.12 Chronic respiratory failure with hypercapnia | CPT/HCPCS: 99214 ==

== ENCOUNTER 2023-08-11 08:50 | Outpatient (CLI) | payer MEDICARE, MEDICAID, SELFPAY ==
--- NOTE | 2023-08-11 09:00 | CT_ITS ---
WS: [id number] CT chest wo con [id number] HISTORY: 3 month f/u TECHNIQUE: Axial imaging performed through the thorax. Coronal and sagittal reformats are submitted. All CT scans at [facility] use at least one of these dose optimization techniques: automated exposure control; mA and/or kV adjustment per patient size (includes targeted exams where dose is mat ched to clinical indication); or iterative reconstruction. CONTRAST: None DLP: 357.74 mGy.cm COMPARISON: 01/05/2023 Lungs and central airway: Previously described area of possible pneumonitis in the superior segment o f the LEFT lower lobe has completely resolved in the interval. No suspicious new findings throughout the LEFT lung. Elevated RIGHT hemidiaphragm limiting expansion of the RIGHT lung. Minimal atelectasis at the RIGHT lung base. There is mild pleural thickening bilaterally. Pleura: Normal. No pleural effusion. Heart and pericardium: Normal size heart with no pericardial effusion. Mediastinum and joshua: No change in the mediastinal or hilar lymph nodes. The number of lymph nodes is slightly increased but these are small size. Some of these lymph nodes are calcified. Vessels: Atherosclerosis aorta. Mildly dilated pulmonary artery. Chest wall and lower neck: No soft tissue masses. Upper abdomen: Elevated RIGHT hemidiaphragm with the liver being highly positioned in the abdomen. Sp lenic and hepatic granulomatous. Prior cholecystectomy. No adrenal mass. Osseous structures: No destructive process. CT/CT chest wo con [id number] IMPRESSION: 1. Complete interval resolution of the pneumonitis recently identified in the LEFT lower lobe. 2. No new mass or pulmonary nodule or pneumonia. 3. Elevated RIGHT diaphragm, stable and chronic. 4. Prior cholecystectomy. 5. Quality of the examination is compromised by breathing motion artifact.
== END 2023-08-11 08:51 | disposition home or self-care (01) ==
LOC: RAD 08:50
PROVIDERS: PCP Family Medicine; Visit Provider Internal Medicine Pulmonary Disease
DX: R91.1 Solitary pulmonary nodule (principal); K75.3 Granulomatous hepatitis, not elsewhere classified; D73.89 Other diseases of spleen; Z90.49 Acquired absence of other specified parts of digestive tract
CPT/HCPCS: 71250

== ENCOUNTER → 2023-11-14 14:50 | Outpatient (BNVA) | payer MEDICARE, MEDICAID, SELFPAY | PROVIDERS: PCP Family Medicine; Visit Provider Internal Medicine Cardiovascular Disease | DX: I50.31 Acute diastolic (congestive) heart failure (principal); I25.9 Chronic ischemic heart disease, unspecified; R94.31 Abnormal electrocardiogram [ECG] [EKG]; J96.12 Chronic respiratory failure with hypercapnia; R03.0 Elevated blood-pressure reading, without diagnosis of hypertension; Z87.891 Personal history of nicotine dependence | CPT/HCPCS: 99214 ==

== ENCOUNTER 2023-12-05 14:46 | Emergency (ER) | payer MEDICARE, MEDICAID, SELFPAY ==
--- NOTE | 2023-12-05 14:48 | ECG_ITS ---
[facility] Test Date: 2023-12-05 Pat Name: Jaye Jarquin Department: Room: Gender: Female Scrub Nurse: : 1940 Requested By: Emiliano Gentile Order Number: [id number] Mago MD: Ronny Davis M.D. Measurements Intervals [place] Rate: 71 P: -77 HI: 152 QRS: -62 QRSD: 84 T: 41 QT: 381 QTc: 416 Interpretive Statements SINUS RHYTHM LEFT AXIS DEVIATION [QRS AXIS < -30] LOW QRS VOLTAGE IN EXTREMITY LEADS [QRS DEFLECTION < 0.5 mV IN LIMB LEADS] Compared to ECG 05/17/2023 11:11:02 Low QRS voltage now present Electronically Signed On 12-06-2023 7:47:55 CDT by Ronny Davis M.D. [id number] f
[2023-12-05 14:51] VITALS: BP 140/80; PULSE 67; RESP 21; TEMP 36.7; O2SAT 97; BMI 30.1
--- NOTE | 2023-12-05 14:51 | XRR_ITS ---
PROCEDURE INFORMATION: Exam: XR Chest Exam date and time: 12/05/2023 3:06 PM Age: 83 years old Clinical indication: Pain; Angina pectoris; Additional info: Cp TECHNIQUE: Imaging protocol: Radiologic exam of the chest. Views: 1 view. COMPARISON: CT chest con [id number] 08/11/2023 9:02 AM FINDINGS: Lungs: There is linear scarring involving the right mid to lower lung field. No consolidated infiltrates are appreciated. Pleural spaces: Unremarkable. No pleural effusion. No pneumothorax. Heart/Mediastinum: Heart is slightly enlarged. There is calcified plaque involving the aorta. Diaphragm: There is chronic elevation of the right hemidiaphragm. Bones/joints: Unremarkable. XR/XR chest 1V portable [id number] IMPRESSION: 1. Mild cardiomegaly. 2. Linear scarring right mid to lower lung field unchanged.
--- NOTE | 2023-12-05 14:57 | ED_ITS ---
HPI - Chest Pain 2 General: Chief Complaint: Chest Pain Stated Complaint: cp Time Seen by Provider: 12/05/23 14:50 Source: patient and EMS Mode of arrival: EMS Limitations: no limitations History of Present Illness: 83-year-old female who is at her dermato logy appointment today patient typically wears oxygen when it came out patient had not had her oxygen on and is unsure how long she had been off her oxygen she did complain shortness of breath and chest pain they called EMS EMS placed back on oxygen did give her 1 nitro states she feels much improved has no symptoms currently. Denies any cough denies any fever. Associated symptoms: Reports dyspnea; Deny abdominal pain, fever(s), nausea or vomiting Related Data Home Medications Medication Instructions Recorded Confirmed calcium carbonate 600 mg-vitamin 1 tab PO QAM 05/31/19 07/28/23 D3 10 mcg (400 unit) chewable tablet (Calcium 600 with Vitamin D3) donepezil 10 mg tablet (Aricept) 10 mg PO BEDTIME 05/31/19 07/28/23 duloxetine 20 mg capsule,delayed 20 mg PO QAM 05/31/19 07/28/23 release mirtazapine 15 mg tablet 15 mg PO BEDTIME 05/31/19 07/28/23 vitamin B complex (B 1 tab PO QAM 05/31/19 07/28/23 Complex-Vitamin B12 tablet) morphine 30 mg tablet,extended 30 mg PO Q12H 09/23/20 07/28/23 release gabapentin 100 mg capsule 100 mg PO QPM 09/13/22 07/28/23 nystatin 100,000 unit/gram topical 1 applic topical . DIRECTED PRN 09/13/22 07/28/23 powder unknown omeprazole 40 mg capsule,delayed 40 mg PO QAM 09/13/22 07/28/23 release ondansetron 4 mg disintegrating 4 mg PO TID PRN Nausea And Vomiting 09/13/22 07/28/23 tablet polyethylene glycol 3350 17 gram 17 g PO DAILY PRN Constipation 09/13/22 07/28/23 oral powder packet (Miralax) potassium chloride 10 mEq 10 meq PO QAM 10/03/22 07/28/23 capsule,extended release furosemide 20 mg tablet (Lasix) 20 mg PO QAM 05/17/23 07/28/23 nitroglycerin 0.4 mg sublingual 0.4 mg sublingual Q5M PRN Chest 05/17/23 07/28/23 tablet Pain prednisone 20 mg tablet 20 mg PO DAILY 11/14/23 Previous Rx's Medication Instructions Recorded fluticasone propionate 50 1 spray intranasal BID #18 mL 12/27/22 mcg/actuation nasal spray,suspension (Flonase Allergy Relief) isosorbide mononitrate 30 mg 30 mg PO BEDTIME #90 tabs 06/27/23 tablet,extended release 24 hr levalbuterol HCl 0.63 mg/3 mL 0.63 mg (3 mL) inhalation TID PRN 07/28/23 solution for nebulization shortness of breath or wheezing #270 mL levalbuterol tartrate 45 2 inh inhalation Q6H PRN shortness 07/28/23 mcg/actuation aerosol inhaler of breath or wheezing #15 grams (Xopenex HFA) Allergies Allergy/AdvReac Type Severity Reaction Status Date / Time adhesive tape Allergy PULLS SKIN Verified 11/14/23 14:55 OFF codeine Allergy ADR-Itching Verified 11/14/23 14:55 fentanyl Allergy ALGY-Difficulty Verified 11/14/23 14:55 Breathing hydrochlorothiazide Allergy ALGY-Difficulty Verified 11/14/23 14:55 Swallowing,THROAT SWELLING hydrocodone Allergy ADR-Nausea Verified 11/14/23 14:55 hydrogen peroxide Allergy ALGY-Rash Verified 11/14/23 14:55 Iodinated Contrast Media Allergy INDUCED Verified 11/14/23 14:55 CARDIAC ARREST latex Allergy ALGY-Rash Verified 11/14/23 14:55 aspirin AdvReac ADR-Nausea Verified 11/14/23 14:55 oxycodone [From OxyContin] AdvReac ADR-Halluci Verified 11/14/23 14:55 nating triazolam [From Halcion] AdvReac ADR-Insomni Verified 11/14/23 14:55 a Review of Systems 2 Const: Denies: fever(s), chills, body aches or change in appetite ENMT: Denies: throat pain or dental pain Card: Reports: chest pain Resp: Reports: dyspnea GI: Denies: abdominal pain, nausea, vomiting or diarrhea : Denies: dysuria Musc: Denies: neck pain or back pain Skin/Breast: Denies: rash Neuro: Denies: headache(s) PFSH ED 2 PFSH: Medical History Acute renal failure Pulmonary edema Acute exacerbation of chronic obstructive pulmonary disease Respiratory failure History of genital organ removal vulvectomy Urinary frequency Mixed stress and urge urinary incontinence History of UTI History of urethral stricture Surgical History History of fundoplication History of back surgery History of appendectomy History of total hip replacement History of cholecystectomy Family History Father Cancer Social History Smoking and tobacco/nicotine status: former use of tobacco/nicotine Quit status (tobacco/nicotine): has quit using Year quit tobacco: 2020 Former quit date comment: 1.5 ppd X 50 years Alcohol intake: never Substance/Drug Use: never Adopted: No Caregiver/support person: No Lives independently: No Household members: spouse Marital status: Current occupational status: retired Current gender identity: Female Physical Exam 2 Const: COMMON NORMALS: no acute distress, patient oriented x3 and healthy appearing HENMT: COMMON NORMALS: normocephalic and atraumatic HEAD & SCALP: n ormocephalic and atraumatic Eye: COMMON NORMALS: Equal, round and reactive pupils present and EOMs intact bilaterally PUPIL: Yes Equal, round and reactive pupils present Neck/C-Spine: COMMON NORMALS: full ROM and supple Chest: COMMONS NORMALS: normal inspection of the chest and normal palpation of entire chest wall Resp: COMMON NORMALS: normal respiratory effort, No retractions, No use of accessory muscles and clear to auscultation bilaterally AUSCULTATION: clear to auscultation bilaterally Cardio: COMMON NORMALS: regular rate, regular rhythm and No murmurs present (Cardio) RATE: regular rate RHYTHM: regular rhythm GI: COMMON NORMALS: Normal to inspection, nondistended, normoactive bowel sounds present, Soft to palpation, non-tender and no masses PALPATION: Yes Soft to palpation Extremity: COMMON NORMALS: normal to inspection and full ROM Neuro: COMMON NORMALS: patient oriented x3, moves all extremities and no focal motor deficits Psych: COMMON NORMALS: mental status grossly normal, Normal thought process present and cooperative THOUGHT PROCESS: Normal thought process present Skin: COMMON NORMALS: no rashes or lesions noted and no wounds GENERAL SKIN EXAM: no rashes or lesions noted Course 2 Vital Signs: Vital signs: Vital Signs Temperature 98.0 F 12/05/23 14:51 Pulse Rate 66 12/05/23 16:25 Respiratory Rate 14 12/05/23 15:02 Blood Pressure 143/84 12/05/23 16:25 Pulse Oximetry 96 12/05/23 16:25 Oxygen Delivery Me thod Room Air 12/05/23 16:25 Oxygen Flow Rate 3 12/05/23 15:02 MDM - Chest Pain Medical Decision Making Patient presents here with chest pains atypical in nature she has been well- appearing here and pain-free here troponins EKG are normal she stable for discharge she is follow-up with PCP return if worsening she understands agrees to plan. Medical Records I reviewed the patient's medical records. Lab Data I reviewed the patient's lab results. 12/05/23 14:35 12/05/23 14:35 Laboratory Results WBC 4.67 10^3/uL (3.29-11.43) 12/05/23 14:35 RBC 4.58 10^6/uL (3.85-5.65) 12/05/23 14:35 Hgb 13.90 g/dL (11.27-16.99) 12/05/23 14:35 Hct 44.6 % (36-47) 12/05/23 14:35 MCV 97.4 fl (85-98) 12/05/23 14:35 MCH 30.3 pg (27-33) 12/05/23 14:35 MCHC 31.2 g/dL (30-55) 12/05/23 14:35 RDW 15.0 % (12.1-15.1) 12/05/23 14:35 Plt Count 275 10^3/cmm (157-399) 12/05/23 14:35 MPV 9.7 fL (7.4-10.4) 12/05/23 14:35 Neut % (Auto) 41.5 % 12/05/23 14:35 Lymph % (Auto) 42.2 % 12/05/23 14:35 [place] % (Auto) 11.6 % 12/05/23 14:35 Eos % (Auto) 3.2 % 12/05/23 14:35 Baso % (Auto) 1.5 % 12/05/23 14:35 Neut # (Auto) 1.94 10^3/uL (1.8-7.7) 12/05/23 14:35 Lymph # (Auto) 2.0 10^3/uL (0.8-4.8) 12/05/23 14:35 [place] # (Auto) 0.5 10^3/uL (0.2-0.9) 12/05/23 14:35 Eos # (Auto) 0.2 10^3/uL (0.0-0.8) 12/05/23 14:35 Baso # (Auto) 0.1 10^3/uL (0.0-0.1) 12/05/23 14:35 Nucleated RBC % (auto) 0 % 12/05/23 14:35 Nucleated RBCs # 0.0 /100WBC 12/05/23 14:35 PT 12.00 SECONDS (12.1-14.9) L 12/05/23 14:35 INR 0.86 (0.8-1.2) 12/05/23 14:35 Sodium 142 mmol/L (136-145) 12/05/23 14:35 Potassium 4.4 mmol/L (3.5-5.1) 12/05/23 14:35 Chloride 98 mmol/L (98-107) 12/05/23 14:35 Carbon Dioxide 36 mmol/L (22-29) H 12/05/23 14:35 Anion Gap 12.4 (5-19) 12/05/23 14:35 BUN 17 mg/dL (8-23) 12/05/23 14:35 Creatinine 1.1 mg/dL (0.5-0.9) H 12/05/23 14:35 GFR Calculation Not Reportable 12/05/23 14:35 Glucose 107 mg/dL (65-115) 12/05/23 14:35 Calculated Osmolality 296 mOsm/kg (285-295) H 12/05/23 14:35 Calcium 9.6 mg/dL (8.5-10.5) 12/05/23 14:35 Total Bilirubin 0.3 mg/dL (0.15-1.2) 12/05/23 14:35 AST 20 U/L (0-32) 12/05/23 14:35 ALT 10 U/L (0-33) 12/05/23 14:35 Alkaline Phosphatase 97 U/L (35-105) 12/05/23 14:35 Troponin T Baseline 16 ng/L (0-10) H 12/05/23 14:35 Troponin T 120 Minute 15.66 ng/L (0-10) H 12/05/23 14:54 Delta Troponin T -0.34 ABS# (0-10) L 12/05/23 14:54 Total Protein 7.9 g/dL (6.6-8.7) 12/05/23 14:35 Albumin 4.4 g/dL (3.5-5.2) 12/05/23 14:35 Globulin 3.5 g/dL (1.3-4.6) 12/05/23 14:35 All radiology interpretation(s) finalized by discharge EKG Data EKG 1: I personally reviewed and interpreted this EKG as follows: EKG interpretation date: 12/05/23 EKG interpretation time: 14:48 Interpretation: hr [address] or t wave abnormalities qrs 84 qtc 404 EKG 2: I personally reviewed and interpreted this EKG as follows: EKG interpretation date: 12/05/23 EKG interpretation time: 16:46 Interpretation: hr [address] or t wave abnormalities qrs 81 qtc 402 Clincial Decision Support The following clinical decision support tools were used to aid in care of the patient HEART Score -> History: Slightly Suspicous, EKG: Normal, Age: 65 or more yrs, Risk Factors: 1 or 2 Risk Factors, Troponin: Baseline Trop 16-45 ng/L. Resulting HEART Score: 4. Discharge Plan Discharge Patient Disposition: Home Clinical Impression: Chest pain Condition: Stable Prescriptions: No Action duloxetine 20 mg capsule,delayed release(DR/EC) 20 mg PO QAM donepezil [Aricept] 10 mg tablet 10 mg PO BEDTIME vitamin B complex [B Complex-Vitamin B12] Tablet 1 tab PO QAM Calcium 600 with Vitamin D3 600 mg(1,500mg) -400 unit tablet,chewable 1 tab PO QAM mirtazapine 15 mg tablet 15 mg PO BEDTIME levalbuterol tartrate [Xopenex HFA] 45 mcg/actuation HFA aerosol inhaler 2 inh inhalation Q6H PRN (Reason: shortness of breath or wheezing) Qty: 15 6RF levalbuterol HCl 0.63 mg/3 mL solution for nebulization 0.63 mg inhalation TID PRN (Reason: shortness of breath or wheezing) Qty: 270 6RF prednisone 20 mg tablet 20 mg PO DAILY Patient Comments: Started on 11/08/23 60mg daily for 3 days 40mg daily for 3 days 20mg dialy for 3 days fluticasone propionate [Flonase Allergy Relief] 50 mcg/actuation spray,suspension 1 spray intranasal BID Qty: 18 3RF Rx Instructions: administer into each nostril isosorbide mononitrate 30 mg tablet extended release 24 hr 30 mg PO BEDTIME Qty: 90 3RF morphine 30 mg tablet extended release 30 mg PO Q12H potassium chloride 10 mEq capsule, extended release 10 meq PO QAM nitroglycerin 0.4 mg tablet, sublingual 0.4 mg sublingual Q5M PRN (Reason: Chest Pain) Rx Instructions: do not exceed 3 doses per episode furosemide [Lasix] 20 mg tablet 20 mg PO QAM polyethylene glycol 3350 [Miralax] 17 gram Powder In Packet 17 g PO DAILY PRN (Reason: Constipation) omeprazole 40 mg capsule,delayed release(DR/EC) 40 mg PO QAM gabapentin 100 mg capsule 100 mg PO QPM nystatin 100,000 unit/gram powder 1 applic TOPICAL . DIRECTED PRN (Reason: unknown) ondansetron 4 mg tablet,disintegrating 4 mg PO TID PRN (Reason: Nausea And Vomiting) Discharge Orders: Discharge ED (Routine); Ordered 12/05/23 Ordered By: Emiliano Gentile Referrals: Naomi Lyn MD [Primary Care Provider] - 4-7 days Discharge Diet: Advance as tolerated Discharge Activity: Resume usual activity Patient Instructions: Chest Pain (ED) Coding Level of Care Code ED Advertising Rep for Nelia Diaz
[2023-12-05 15:02] VITALS: BP 130/82; PULSE 68; RESP 14; O2SAT 97
[2023-12-05 15:10] LABS: Basophils # 0.1 10^3/uL (0.0-0.1); Basophils % 1.5 %; Eosinophils # 0.2 10^3/uL (0.0-0.8); Eosinophils % 3.2 %; Hematocrit 44.6 % (36-47); Lymphocytes % 42.2 %; Mean Corpuscular HGB Conc 31.2 g/dL (30-55); Mean Corpuscular Hemoglobin 30.3 pg (27-33); Mean Corpuscular Volume 97.4 fl (85-98); Mean Platelet Volume 9.7 fL (7.4-10.4); Monocytes # 0.5 10^3/uL (0.2-0.9); Monocytes % 11.6 %; Neutrophils # 1.94 10^3/uL (1.8-7.7); Neutrophils % 41.5 %; Nucleated Red Blood Cells % 0 %; Platelet Count 275 10^3/cmm (157-399); Red Blood Count 4.58 10^6/uL (3.85-5.65); White Blood Count 4.67 10^3/uL (3.29-11.43)
[2023-12-05 15:28] LABS: INR 0.86 (0.8-1.2)
[2023-12-05 15:33] LABS: Troponin(5th) Baseline 16 ng/L (0-10)
[2023-12-05 15:37] LABS: Alanine Aminotransferase 10 U/L (0-33); Albumin Level 4.4 g/dL (3.5-5.2); Alkaline Phosphatase 97 U/L (35-105); Anion Gap 12.4 (5-19); Aspartate Amino Transferase 20 U/L (0-32); Blood Urea Nitrogen 17 mg/dL (8-23); Calcium 9.6 mg/dL (8.5-10.5); Carbon Dioxide 36 mmol/L (22-29); Chloride 98 mmol/L (98-107); Creatinine Clr Calc Pharmacy 36.7651; Globulin 3.5 g/dL (1.3-4.6); Glucose 107 mg/dL (65-115); Osmolality Calculated 296 mOsm/kg (285-295); Potassium 4.4 mmol/L (3.5-5.1); Sodium 142 mmol/L (136-145); Total Bilirubin 0.3 mg/dL (0.15-1.2); Total Protein 7.9 g/dL (6.6-8.7)
[2023-12-05 16:25] VITALS: BP 143/84; PULSE 66; O2SAT 96
--- NOTE | 2023-12-05 16:51 | ECG_ITS ---
[facility] Test Date: 2023-12-05 Pat Name: Jaye Jarquin Department: Room: Gender: Female Oracle Architect: : [id number] Requested By: Emiliano Gentile Order Number: [id number] Mago MD: Ronny Davis M.D. Measurements Intervals [place] Rate: 65 P: -75 [place]: 160 QRS: -48 QRSD: 81 T: 12 QT: 390 QTc: 407 Interpretive Statements SINUS RHYTHM LEFT AXIS DEVIATION [QRS AXIS < -30] Compared to ECG 12/05/2023 14:48:31 No significant changes Electronically Signed On 12-06-2023 7:53:11 CDT by Ronny Davis M.D. [email or web address]
[2023-12-05 17:25] LABS: Troponin 5 2HR 15.66 ng/L (0-10)
[2023-12-05 17:27] LABS: Troponin 5 2HR Delta -0.34 ABS# (0-10)
[2023-12-05 17:57] VITALS: BP 141/82; PULSE 76; O2SAT 95
== END 2023-12-05 17:57 | disposition home or self-care (01) ==
PROVIDERS: Emergency Provider Emergency Medicine; PCP Family Medicine
DX: R07.9 Chest pain, unspecified (principal); J44.9 Chronic obstructive pulmonary disease, unspecified; Z87.891 Personal history of nicotine dependence
CPT/HCPCS: 36415; 71045; 80053; 84484; 85025; 85610; 93005; 99285

== ENCOUNTER 2024-05-21 15:17 | Outpatient (CLI) | payer MEDICARE, MEDICAID, SELFPAY ==
--- NOTE | 2024-05-21 15:26 | XRR_ITS ---
PROCEDURE INFORMATION: Exam: XR Chest Exam date and time: 05/21/2024 3:32 PM Age: 83 years old Clinical indication: Condition or disease; Lung condition and disease; Complications not specified; --hx of chf and copd, x3 weeks chest rattles f/u; Additional info: Copd w/hypoxia or hypercapnia TECHNIQUE: Imaging protocol: Radiologic exam of the chest. Views: 2 views. COMPARISON: CR XR chest 1V portable [id number] 12/05/2023 3:06 PM FINDINGS: Lungs: Linear scarring in the right lower lung. No consolidation. Pleural spaces: Unremarkable. No pleural effusion. No pneumothorax. Heart/Mediastinum: Unremarkable. No cardiomegaly. Bones/joints: Unremarkable. XR/XR chest 2V* [id number] IMPRESSION: No acute findings.
== END 2024-05-21 15:18 | disposition home or self-care (01) ==
LOC: RAD 15:21
PROVIDERS: PCP Family Medicine; Visit Provider Family Medicine
DX: J44.9 Chronic obstructive pulmonary disease, unspecified (principal); J96.10 Chronic respiratory failure, unspecified whether with hypoxia or hypercapnia; J98.4 Other disorders of lung
CPT/HCPCS: 71046

== ENCOUNTER → 2024-06-15 10:11 | Outpatient (BNVA) | payer MEDICARE, MEDICAID, SELFPAY | PROVIDERS: PCP Family Medicine; Visit Provider Nurse Practitioner Family | DX: I50.31 Acute diastolic (congestive) heart failure (principal); I25.9 Chronic ischemic heart disease, unspecified; R94.31 Abnormal electrocardiogram [ECG] [EKG]; J96.12 Chronic respiratory failure with hypercapnia | CPT/HCPCS: 99213 ==

== ENCOUNTER 2024-09-25 10:12 | Outpatient (CLI) | payer MEDICARE, MEDICAID, SELFPAY ==
--- NOTE | 2024-09-25 10:26 | XR_ITS ---
WS: [id number] XR chest 2V* [id number] REASON FOR EXAM: MASTODYNIA/SHORTNESS OF BREATH/DISORIENTATION FINDINGS: Compared to the previous examination of 05/21/2024. There may be blunting of the both costophrenic angles raising the possibility of small bilateral pleural effusions. Equivocal findings. The chest is otherwise unchanged compared to the previous study. Calcification of the aortic arch with mild to moderate tortuosity and ectasia of the thoracic aorta. The heart size is within normal limits. Moderate elevation of the right hemidiaphragm. Pleural thickening along the minor fissure on the right. Calcified granulomatous disease within the mediastinum and central lungs bilaterally. Chronic appearing interstitial lung opacities in the left lung lower lung. Chronic peribronchial thickening. XR/XR chest 2V* [id number] IMPRESSION: Equivocal findings for small pleural effusions. The chest is otherwise unchange d compared to the previous examination of 05/21/2024.
== END 2024-09-25 10:13 | disposition home or self-care (01) ==
PROVIDERS: Visit Provider Nurse Practitioner Family
DX: N64.4 Mastodynia (principal); R06.02 Shortness of breath; R41.0 Disorientation, unspecified; R93.89 Abnormal findings on diagnostic imaging of other specified body structures; I70.0 Atherosclerosis of aorta; I77.810 Thoracic aortic ectasia; J92.9 Pleural plaque without asbestos; J84.10 Pulmonary fibrosis, unspecified; J98.4 Other disorders of lung
CPT/HCPCS: 71046

== ENCOUNTER 2024-10-25 12:58 | Outpatient (CLI) | payer MEDICARE, MEDICAID, SELFPAY ==
--- NOTE | 2024-10-25 13:04 | US_ITS ---
WS: [id number] ULTRASOUND BREAST LEFT TECHNIQUE: Ultrasound left breast focused area of concern. CLINICAL INFORMATION: MASTODYNIA COMPARISON: None. FINDINGS: Ultrasound area of concern upper outer LEFT breast and axillary tail. Normal underlying parenchymal tissue. Normal-appearing lymph nodes in the area of concern LEFT axilla measuring 1.0 x 0.7 cm with preserved fatty hilum. No suspicious abnormalities in the areas of concern. US/US breast LT limited* [id number] IMPRESSION: 1. BI-RADS 2 benign 2. Recommend return to annual screening mammography.
--- NOTE | 2024-10-25 13:06 | MM_ITS ---
WS: [id number] BILATERAL 3D TOMOSYNTHESIS DIGITAL DIAGNOSTIC MAMMOGRAPHY WITH CAD CLINICAL INFORMATION: MASTODYNIA HISTORY: LEFT breast pain COMPARISON: None. TECHNIQUE: Bilateral CC, MLO, and ML views. FINDINGS: Scattered fibroglandular densities bilaterally. Vascular calcification. Punctate and lucent centered calcifications. Palpable markers upper outer LEFT breast along the axillary tail. Ultrasound this area is pending. No mammographic abnormalities in this area. Normal RIGHT breast. ULTRASOUND BREAST LEFT TECHNIQUE: Ultrasound left breast focused area of concern. CLINICAL INFORMATION: MASTODYNIA COMPARISON: None. FINDINGS: Ultrasound area of concern upper outer LEFT breast and axillary tail. Normal underlying parenchymal tissue. Normal-appearing lymph nodes in the area of concern LEFT axilla measuring 1.0 x 0.7 cm with preserved fatty hilum. No suspicious abnormalities in the areas of concern. MM/MM diag BI tomosynthesis [id number] IMPRESSION: 1. BI-RADS 2 benign 2. Recommend return to annual screening mammography.
== END 2024-10-25 12:59 | disposition home or self-care (01) ==
LOC: RAD 12:59
PROVIDERS: PCP Nurse Practitioner Family; Visit Provider Nurse Practitioner Family
DX: N64.4 Mastodynia (principal); R92.323 Mammographic fibroglandular density, bilateral breasts; R92.1 Mammographic calcification found on diagnostic imaging of breast
CPT/HCPCS: 76642; 77062; G0279